=== PATIENT | female | born 1940 | race Caucasian/White ===

== ENCOUNTER → 2018-02-25 13:05 | Outpatient (CLI) | payer MEDICARE, OTHER, SELFPAY ==
[2018-02-25 13:49] LABS: Add Manual Diff / Slide Review NO; Basophils Percent Auto 0.9 % (0-2); Eosinophils Percent Auto 0.7 % (2-4); Hematocrit 39.3 % (36-46); Lymphocytes Percent Auto 32.7 % (25-40); Mean Corpuscular HGB Conc 33.1 % (30-36); Mean Corpuscular Hemoglobin 29.5 PG (26-34); Mean Corpuscular Volume 89.2 fL (80-100); Neutrophils Absolute Auto 3900 /uL (3000-5900); Neutrophils Percent Auto 55.7 % (50-75); Platelet Count 291 X10^3/uL (150-400); Red Cell Distribution Width 13.3 % (11.6-14.8); White Blood Cell Count 7.1 X10^3/uL (4.5-11.0)
[2018-02-25 14:28] LABS: BUN Creatinine Ratio 21.7 (6-22); Blood Urea Nitrogen 13 mg/dL (7-17); Carbon Dioxide 30 mmol/L (22-32); Chloride 97 mmol/L (98-107); Estimated Glomerular Filt Rate > 60.0 mL/min (>60); Glucose 81 mg/dL (80-110); HEMOLYSIS < 15 (0-50); Potassium 4.8 mmol/L (3.4-5.1); Sodium 138 mmol/L (137-145)
== END ==
PROVIDERS: PCP Family Medicine; Visit Provider Orthopaedic Surgery
DX: Z01.818 Encounter for other preprocedural examination (principal)
CPT/HCPCS: 36415; 80048; 85025; 93005

== ENCOUNTER 2018-03-28 06:36 | Inpatient (IN) | payer MEDICARE, OTHER, SELFPAY ==
[2018-03-15 12:57] VITALS: BMI 22.1
[2018-03-28] VITALS (13 sets, daily range): BP systolic 99–134; BP diastolic 54–94; PULSE 71–85; RESP 12–16; TEMP 36.2–37.4; O2SAT 95–99; BMI 22.1; BMI 21.7
--- NOTE | 2018-03-28 | DI.RAD.S_ITS ---
PROCEDURE: XR SHOULDER RT 1V INDICATIONS: Post op reverse total shoulder TECHNIQUE: Single view of the shoulder were acquired. COMPARISON: None. FINDINGS: Bones: Patient is status post left shoulder arthroplasty. Soft tissues: Soft tissue drain is present. IMPRESSION: Postoperative changes status post left shoulder arthroplasty. Dictated by: Donna Gómez M.D. on 03/28/2018 at 10:36 Approved by: Donna Gómez M.D. on 03/28/2018 at 10:36
[2018-03-28] MEDS: LACTATED RINGERS 1,000 ML 42 ML IV ×2 (07:30→09:45)
--- NOTE | 2018-03-28 07:43 | PM.PREOP ---
Pre-operative Note Interval Note Pre-op Check: History & Physical Reviewed by Physician and Changes
[2018-03-28] MEDS: fentaNYL 100 MCG/2 ML INJ 50 MCG IV (07:55)
[2018-03-28] MEDS: MIDAZOLAM 2 MG/2 ML VIAL 1 MG IV (07:55)
--- NOTE | 2018-03-28 08:13 | SUR.PREOP ---
Block start time [0756] . Monitoring initiated and maintained throughout procedure. Oxygen and medications given per anesthesiologist instructions. Patient remained stable throughout procedure, no adverse reactions noted. Block end time 0804 [].
[2018-03-28] MEDS: CEFAZOLIN 1 GM VIAL IV (08:15)
--- NOTE | 2018-03-28 08:47 | SUR.OPER ---
Beach chair with Sundeepn/Qiana shoulder positioner. Lower body on padded OR bed. Head in foam padded head cradle, secured with straps. Non-operative arm secured <90 degrees abduction. Pillow under knees. Safety belt at thigh. Cloth tape over blanket over lower legs. B Gel pad under heels.
[2018-03-28] MEDS: THROMBIN (BOVINE) 5,000 UNIT VIAL 5000 UNIT TOP (09:06)
[2018-03-28] MEDS: BUPIVACAINE 0.5% W/ EPI (PF) 30 ML VIAL INJ (09:07)
--- NOTE | 2018-03-28 10:23 | P.OP_ITS ---
Operative Date/Time/Diagnoses Date of procedure: 03/28/18 Time of procedure: 09:45 Pre-op diagnosis: Right shoulder rotator cuff tear arthropathy Post-op diagnosis: same Procedure & Clinicians Procedure: Right reverse total shoulder replacement Same procedure as scheduled: Yes Indications: The patient is had chronic right shoulder pain unresponsive to nonoperative therapies. Radiographic studies have revealed changes consistent with a massive rotator cuff tear and arthritis. They have elected to proceed with reverse total shoulder replacement after discussion of the risks benefits and alternatives. Risks discussed included but were not limited to: Failure to improve, instability, infection, nerve damage, deep venous thrombosis, pulmonary embolism, stroke, coma, myocardial infarction and . Surgeon: Gabriel Duarte Carpenter Wooden Tank Erecting: Nolan Vila Click Yes if Unassisted: No Anesthesia Type: General, Peripheral nerve block and Local Operative Notes Findings: Severe rotator cuff tear arthropathy with no remaining rotator cuff tissue Closure Type: primary Specimen(s): none sent Implants & Drains: Implants used in this procedure were manufactured by the [employer] and included a RSP glenoid base plate with a 30 mm screw, and 3 locking screws measuring 26 mm, 30 mm and 14 mm in length, a 32 mm neutral RSP glenoid head with retaining screw, a 10 mm standard reverse total shoulder stem and a 32 mm standard humeral socket insert. Applied: implant(s) Estimated Blood Loss (mL): 100 Blood products transfused: none Tourniquet time (min): 0 Procedure in detail: The patient was seen in the preoperative area where they identified the right shoulder as the operative site and this was marked with my initials. They received preoperative antibiotics and underwent the induction of an interscalene block. They were taken to the operating room and placed on the operating room table in a supine position with the underwent the induction of a general anesthetic. There were then repositioned in the ?beach chair? position using a dedicated positioner. All pressure points were well padded. The knees were slightly bent to prevent tension on the sciatic nerves. The right arm was prepared from the fingertips to the base of the neck with ChloraPrep in the usual fashion and draped through sterile drapes. An approximately 15 cm incision was created starting at the clavicle just above the coracoid and going to the deltoid insertion. The deltopectoral interval was used to access the shoulder taking the vein to the medial side. The vein was protected throughout the case. The upper 1 cm of the pectoralis major was released. The biceps tendon had ruptured. The subscapularis was torn and irreparable. The shoulder was dislocated and a proximal humeral osteotomy performed using an extramedullary guide. A proximal humeral protector was then placed. Retractors were placed access the glenoid. With care being taken to protect the axillary nerve, the soft tissues were removed circumferentially around the glenoid. The guide was used to drill the guide hole in the center of the inferior glenoid. The tap was placed and used as a guide for the reamer. The tap was then removed and the glenoid base plate inserted. The peripheral locking screws were then placed through the appropriate guide. The anterior screw was too short to place. A trial glenoid head was applied. We then turned our attention to the humerus. The proximal humeral protector was removed. Cylindrical reamers were used to size the canal. Broaching was then performed beginning with a small broach and working up until a line to line fit with the reamer was obtained. The guide for the proximal metaphyseal reamer was then applied and the metaphysis was reamed appropriately. The trial metaphyseal portion of the body was then applied to the broach. Trial reductions were performed and the size of the glenoid head and the cup were optimized. Stability was checked in maximal internal and external rotation and range of motion was checked to allow access to the top of the head, internal rotation to an excess of 50? in the ?scarecrow position? and the ability to reach the groin. The appropriate final prosthetic components were then opened. The glenoid head was impacted into position and checked for rotational and axial stability before placing the set screw. The humeral prosthetic was then impacted into position. The humeral cup was placed. The joint was relocated and irrigated. A deep drain was placed. The deltopectoral interval was reapproximated with 0 Vicryl. Subcutaneous layer was closed with interrupted 3- 0 Vicryl and skin with a running 3 0 V lock suture. Subcutaneous tissues were then infiltrated with 0.5% Marcaine for postoperative pain control. An Aquacel Ag dressing was applied and the patient's arm was placed in a sling. The patient was then transferred to the recovery room in good condition having tolerated the procedure well. Complications: none Condition: stable Disposition: PACU Plan for aftercare: The patient will be maintained in their sling for 6 weeks. They will be allowed to do pendulum exercises. They will be allowed to use a computer and eat with their hand in front of the body. They will be allowed to shower with the dressing in place. DVT prophylaxis will be with aspirin and sequential compression devices.
--- NOTE | 2018-03-28 10:34 | SUR.PHASEI ---
BEBETO MORALEZ IN TO LOOK AT PTS SHOULDER/UPPER FOREARM, PT HAS LARGE, HARD BUMP ON ANTERIOR SHOULDER/UPPER FOREARM, PER NAOMY TATE, THIS IS PTS NORMAL ANATOMY AND THIS WAS PRESENT BEFORE SURGERY.
[2018-03-28] MEDS: LACTATED RINGERS 1,000 ML 100 ML IV ×2 (11:51→21:52)
--- NOTE | 2018-03-28 12:25 | PT.IPTN ---
Current Diagnoses Other specific arthropathies, not elsewhere classified, right shoulder (03/28/18) Primary osteoarthritis, right shoulder (03/28/18) Complete rotator cuff tear or rupture of right shoulder, not specified as traumatic (03/28/18) Surgery Performed Operation Date: 03/28/18 07:45 Actual Procedures p Total Shoulder Arthroplasty - Reverse(Right) - Gabriel Duarte MD Physical Therapy Treatment Note Subjective Physical Therapy Visit Type Type Administrative Note Notes Checked on patient at 1120 and 1200, RN reporting pt is not yet ready to participate in therapy. Will check back later today or tomorrow.
--- NOTE | 2018-03-28 14:49 | PC.NURSE ---
arrival pt arrived from PACU in bed. denied pain. R arm in sling. Able to squeeze with minimal strength on arrival. some numbness and tingling in R hand and pt feels like hand is on her sternum not below in the sling. Denies pain. Aware to contact staff when/if pain intensifies to start PO pain meds. Tolerated full liquid diet without issue. Advanced to regular diet. present at bedside. up with PT to bathroom, urinated without issue. ice on surgical site. hourly rounding provided,c all light within reach.
--- NOTE | 2018-03-28 15:30 | PT.IIE ---
Current Diagnoses Other specific arthropathies, not elsewhere classified, right shoulder (03/28/18) Primary osteoarthritis, right shoulder (03/28/18) Complete rotator cuff tear or rupture of right shoulder, not specified as traumatic (03/28/18) Surgery Performed Operation Date: 03/28/18 07:45 Actual Procedures p Total Shoulder Arthroplasty - Reverse(Right) - Gabriel Duarte MD Surgical History (Last Updated 03/15/18 @ 13:36 by Debbie Tierney RN) History of back surgery (Acute) History of partial hysterectomy (Acute) History of repair of left rotator cuff (Acute) History of repair of right rotator cuff (Acute) History of right breast biopsy (Acute) Hx of arthroscopy of right knee (Acute) Hx of bilateral cataract extraction (Acute) Hx of tonsillectomy (Acute) Medical History (Last Updated 03/15/18 @ 13:36 by Debbie Tierney RN) Arthritis (Acute) Back pain (Acute) Diverticulosis (Acute) GERD (gastroesophageal reflux disease) (Acute) [place] (hard of hearing) (Acute) Migraines (Acute) Numbness (Acute) Osteoporosis (Acute) Restless leg syndrome (Acute) Rosacea (Acute) Scoliosis (Acute) Physical Therapy Inpatient Evaluation/Re-Eval Physical Therapy Current Condition Current Condition Evaluation Date 03/28/18 Treatment Diagnosis R reverse TSA Onset Date 03/28/18 Precautions Shoulder Precautions Sling PROM Internal Rotation to Body No External Rotation No Abduction Forward Flexion to 90 degrees Weight Bearing Status Weight Bearing Status Non-Weight Bearing Subjective Physical Therapy Visit Type Type Initial Evaluation Visit Start Time 13:00 Visit Stop Time 13:40 Total Visit Minutes 40 Physical Therapy Visit Comments Patient Comments Pt reports absolutely no pain but also has no feeling in her RUE yet. Short Term Goals go home Therapy Pain Assessment Pain When Pain Assessed At Rest Pain Present Pain Present Denied Pain PT-Bed Mobility Assessment Supine to Sit Supine to Sit Standby Assistance 1 Person Assistance Head of Bed Elevated Bedrails Sit to Supine Sit to Supine Standby Assistance 1 Person Assistance Head of Bed Elevated Bedrails Scooting Scooting to Edge of Bed Standby Assistance PT-Transfer Assessment Sit to and From Stand Sit to and from Stand Contact Guard Assistance 1 Person Assistance Use of Upper Extremities Equipment Transfer Assistive Device Gait Belt Transfers Transfer Destination Bed Toilet Transfer Technique Stand Step Pivot Transfer Ability Level of Assist Contact Guard Assistance 1 Person Assistance Use of Upper Extremities Comments Mobility Comments Pt able to walk into the bathroom and slowly lower herself onto the toilet without use of the grab bar. Gait Assessment Gait Gait Assistance Required: Contact Guard Assist Distance (Feet) (feet) 212 Able to Maintain Weight Bearing Status Yes During Gait Assistive Devices Assistive Device Gait Belt Comments Gait Comments Pt able to walk over 200ft her first time up after surgery, however, pt definitely needed CGA with several small LOBs. Pt does admit to having an extensive fall history. Stair Climbing Assessment Comments Stair Climbing Comments not tested PT-Balance Assessment Sitting Balance and Reactions Static Sitting Balance Ability Normal Dynamic Sitting Balance Ability Normal Standing Balance and Reactions Static Standing Balance Ability Good Dynamic Standing Balance Ability Fair Device Used none Orientation Orientation/Cognition Level of Alertness Alert Orientation Name Age Birthday Month Date Year Day of Week Place Situation Language Function Ability No Deficits Noted Safety Awareness Understands Safety Issues Memory Description No Deficits Noted Gross Range of Motion Upper Extremity ROM Assessment Right Impaired Impairments limited by use of sling/ precautions s/p R TSA Lower Extremity ROM Assessment Within Functional Limits Strength Upper Extremity Strength Assessment Right Impaired Lower Extremity Strength Assessment Within Functional Limits Comments Strength Comments RUE not tested Sensation Assessment Comments Sensation Comments Sensation is grossly WNL except for RUE which is still completely numb s/p R TSA. Physical Therapy Treatment Education Education Provided Precautions Weight Bearing Status Safety PT Summary Assessment and Plan Potential Rehabilitation Potential Good Status of Condition at Evaluation Stable Summary Impairments Balance Gait Progress Towards Goals Progressing Toward Goals Assessment Summary POD#0 R reverse TSA, NWB RUE and use of sling. Pt doing well with tolerating OOB activity, very motivated. Pt will be safe to discharge home once medically ready, however , pt does demonstrate impaired balance and will benefit from further acute PT prior to d/c to trial various ADs and make final recommendation. Goals Bed Mobility Goal Independent Transfer Goal Independent Gait Goal Standby Assistance Cane Gait Distance 300 Days to Meet Goals 2 Frequency of Treatment Frequency Of Treatment Twice a Day Treatment Plan Physical Therapy Treatment Plan Gait Training Balance Retraining Recommendations To Nursing Amount of Assist Needed 1 Person Assist Discharge Recommendations PT Discharge Recommendations Home with Assistance Outpatient PT
[2018-03-28] MEDS: GABAPENTIN 100 MG CAPSULE 200 MG PO (16:20)
[2018-03-28] MEDS: CEFAZOLIN 1 GM/50 ML FROZ.PIGGY IV ×2 (16:20→23:33)
[2018-03-28] MEDS: ASPIRIN EC 81 MG TABLET PO (20:16)
[2018-03-28] MEDS: PRAMIPEXOLE 0.25 MG TABLET PO (20:16)
[2018-03-28] MEDS: DOCUSATE 100 MG CAPSULE PO (20:17)
[2018-03-28] MEDS: OXYCODONE IR 5 MG TABLET PO ×2 (20:17→23:33)
[2018-03-28] MEDS: ACETAMINOPHEN 325 MG TABLET 650 MG PO (20:17)
[2018-03-28] MEDS: HYDROMORPHONE 2 MG INJ 0.5 MG IV (21:51)
--- NOTE | 2018-03-28 22:29 | PC.NURSE ---
Pt c/o pain 04/29, PRN pain meds being given per NOV. Aquacel CDI, sling remains in place. Pt able to wiggle fingers, good strong radial pulse, skin warm, denies numbness and tingling. Denies nausea, +BT's. Hx restless legs, pt has been ambulating in halls with staff SBA. IV fluids infusing. Call light in reach. Pt calling appropriately and making needs known to staff.
[2018-03-29] MEDS: HYDROMORPHONE 2 MG INJ 0.5 MG IV ×2 (00:35→03:29)
--- NOTE | 2018-03-29 05:31 | PC.NURSE ---
pet care attendant: Pt is a/ox3, slept in the bedside chair with head up most of the night, pt reports that she felt more comfortable in the chair. Aquacel dressing to right shoulder CDI, H/V compressed and patent with sling in place. CMS +, radial pulse palpable. Denies nausea overnight. Pt having c/o that increases to 5-6/10 with ambulation, medicated with IV Dilaudid and Oxycodone. Pt concerned that 1 tab Oxycodone which is her home routine will not be adequate for pain control the first few days to week post op. Call light within reach.
[2018-03-29 05:44] VITALS: BP 105/59; PULSE 68; RESP 16; TEMP 36.1; O2SAT 98
[2018-03-29] MEDS: ACETAMINOPHEN 325 MG TABLET 650 MG PO ×2 (06:03→07:50)
[2018-03-29] MEDS: OXYCODONE IR 5 MG TABLET PO ×2 (06:04→07:50)
--- NOTE | 2018-03-29 07:42 | PM.DS.1 ---
History of Present Illness Date Patient Seen: 03/29/18 Time Patient Seen: 07:24 Chief complaint: [id number] Narrative: Patient seen at bedside with Dr. Duarte status post right reverse shoulder arthroplasty postop day 1. Patient is doing well however her pain was uncontrolled over the night. We will work on pain management today and have her work with physical therapy. After she is cleared by physical therapy she will be able to go home. She denies any numbness tingling of the right arm. She denies fevers chills shortness of breath and chest pain. She will be given a script for oxycodone as well as aspirin to take twice a day to prevent DVT. Discharge Providers Date of admission: 03/28/18 06:36 Primary care physician: Maikol Bazzi DO Consults: 03/28/18 11:17 Consult to Discharge Planning Routine Comment: Consult to Physical Therapy Evaluate & Treat Comment: Teach pendulums, otherwise to remain in sling Physician Instructions: Evaluate and Treat Discharge provider: Andreina Atkins PA-C Summary Discharge Diagnosis: Right shoulder osteoarthritis Hospital Course: Patient is admitted status post right reverse shoulder arthroplasty on 03/28/2018. Patient tolerated the procedure well no major complications. Patient was seen by Physical therapy and cleared for discharge home. The patient will be discharged on 03/29/2018. Status at Discharge Cognitive/behavioral status at discharge: Alert and oriented x3 Functional status at discharge: independent ambulation Overall status at discharge: patient is progressing back to baseline Time Spent with Patient Less than 30 minutes Exam Vital Signs (past 8 hours): - 03/29/18 05:44 Temperature 96.9 F L Pulse Rate 68 Respiratory Rate 16 Blood Pressure 105/59 L Pulse Oximetry 98 Oxygen Delivery Method Room Air Narrative Exam Narrative: Patient is well built and nourished in no acute distress. Patient alert oriented x3. On examination of the right upper extremity patient is able to move fingers wrist and elbow. Nerves C5, 6 & 7 are intact. Dressing is clean dry and intact. Drain has minimal discharge. Discharge Plan Discharge Plan Patient Disposition: Home, Self-Care Discharge Med Rec/Prescriptions Prescriptions: New aspirin 81 mg Tablet,Delayed Release (Dr/Ec) 81 mg PO BID Qty: 0 RF: 0 docusate sodium 100 mg Capsule 100 mg PO BID Qty: 0 RF: 0 oxycodone 5 mg Tablet 5 mg PO Q4-6H PRN (Reason: Pain, Moderate (4-6)) Qty: 60 RF: 0 Continue pramipexole [Mirapex] 0.5 mg Tablet 0.25 mg PO BID-TID RF: 0 gabapentin 100 mg Capsule 2 - 3 tab PO QPM RF: 0 alendronate [Fosamax] 70 mg Tablet 70 mg PO QWEEK RF: 0 Discontinued oxycodone 5 mg Capsule 5 mg PO QID PRN (Reason: pain, restless legs) RF: 0 Follow up/Referrals: [facility] [Provider Group] - 04/11/18 3:30 pm (With Crystal Leonardo at the [place] office) Provider Discharge Instructions Diet: Diet as Tolerated Activity: NWB left upper extremity, may do pendulum exercises and move wrist/elbow. Wear sling as reminder to not move shoulder. Wound Care Report to your healthcare provider any signs of infection, such as:: chills, fever, night sweats, increased pain and unusual drainage Dressing: Keep dressing clean, dry, and intact until follow up appointment. Visit Report/Discharge Packet Instructions: DI for Shoulder Replacement Discharge Data Primary Care Provider: Maikol Bazzi Attending Provider: Gabriel Duarte Admit Date/Time: 03/28/18 06:36 Quality VTE Deep Vein Thrombosis/Pulmonary Embolism Present on Admission: No
[2018-03-29 07:45] VITALS: BP 98/42; PULSE 71; RESP 14; TEMP 36.8; O2SAT 99
--- NOTE | 2018-03-29 07:47 | P.DS_ITS ---
History of Present Illness Date Patient Seen: 03/29/18 Time Patient Seen: 07:24 Chief complaint: [id number] Narrative: Patient seen at bedside with Dr. Duarte status post right reverse shoulder arthroplasty postop day 1. Patient is doing well however her pain was uncontrolled over the night. We will work on pain management today and have her work with physical therapy. After she is cleared by physical therapy she will be able to go home. She denies any numbness tingling of the right arm. She denies fevers chills shortness of breath and chest pain. She will be given a script for oxycodone as well as aspirin to take twice a day to prevent DVT. Discharge Providers Date of admission: 03/28/18 06:36 Primary care physician: Maikol Bazzi DO Consults: 03/28/18 11:17 Consult to Discharge Planning Routine Comment: Consult to Physical Therapy Evaluate & Treat Comment: Teach pendulums, otherwise to remain in sling Physician Instructions: Evaluate and Treat Discharge provider: Andreina Atkins PA-C Summary Discharge Diagnosis: Right shoulder osteoarthritis Hospital Course: Patient is admitted status post right reverse shoulder arthroplasty on 03/28/2018. Patient tolerated the procedure well no major complications. Patient was seen by Physical therapy and cleared for discharge home. The patient will be discharged on 03/29/2018. Status at Discharge Cognitive/behavioral status at discharge: Alert and oriented x3 Functional status at discharge: independent ambulation Overall status at discharge: patient is progressing back to baseline Time Spent with Patient Less than 30 minutes Exam Vital Signs (past 8 hours): - 03/29/18 05:44 Temperature 96.9 F L Pulse Rate 68 Respiratory Rate 16 Blood Pressure 105/59 L Pulse Oximetry 98 Oxygen Delivery Method Room Air Narrative Exam Narrative: Patient is well built and nourished in no acute distress. Patient alert oriented x3. On examination of the right upper extremity patient is able to move fingers wrist and elbow. Nerves C5, 6 & 7 are intact. Dressing is clean dry and intact. Drain has minimal discharge. Discharge Plan Discharge Plan Patient Disposition: Home, Self-Care Discharge Med Rec/Prescriptions Prescriptions: New aspirin 81 mg Tablet,Delayed Release (Dr/Ec) 81 mg PO BID Qty: 0 RF: 0 docusate sodium 100 mg Capsule 100 mg PO BID Qty: 0 RF: 0 oxycodone 5 mg Tablet 5 mg PO Q4-6H PRN (Reason: Pain, Moderate (4-6)) Qty: 60 RF: 0 Continue pramipexole [Mirapex] 0.5 mg Tablet 0.25 mg PO BID-TID RF: 0 gabapentin 100 mg Capsule 2 - 3 tab PO QPM RF: 0 alendronate [Fosamax] 70 mg Tablet 70 mg PO QWEEK RF: 0 Discontinued oxycodone 5 mg Capsule 5 mg PO QID PRN (Reason: pain, restless legs) RF: 0 Follow up/Referrals: [facility] [Provider Group] - 04/11/18 3:30 pm (With Crystal Richey at the [place] office) Provider Discharge Instructions Diet: Diet as Tolerated Activity: NWB left upper extremity, may do pendulum exercises and move wrist/ elbow. Wear sling as reminder to not move shoulder. Wound Care Report to your healthcare provider any signs of infection, such as:: chills, fever, night sweats, increased pain and unusual drainage Dressing: Keep dressing clean, dry, and intact until follow up appointment. Visit Report/Discharge Packet Instructions: DI for Shoulder Replacement Discharge Data Primary Care Provider: Maikol Bazzi Attending Provider: Gabriel Duarte Admit Date/Time: 03/28/18 06:36 Quality VTE Deep Vein Thrombosis/Pulmonary Embolism Present on Admission: No
[2018-03-29] MEDS: ASPIRIN EC 81 MG TABLET PO (08:21)
[2018-03-29] MEDS: DOCUSATE 100 MG CAPSULE PO (08:21)
[2018-03-29] MEDS: PRAMIPEXOLE 0.25 MG TABLET PO (08:21)
--- NOTE | 2018-03-29 09:02 | CM.DANOTE ---
Discharge Planning/Care Management CM Discharge Assessment Start: 03/29/18 08:59 Freq: Status: Active Protocol: Document 03/29/18 08:59 RL (Rec: 03/29/18 09:02 RL [id number]) Discharge Planning Assessment History Provided By Patient Has Patient been admitted in last 30 No days? Is this patient on Medicare? Yes Is the admit diagnosis the same? Yes Prior Living Arrangements House Household Members spouse Type of transporation used prior to Drives own vehicle admit Independent with ADL's Yes Is patient alert and oriented? Yes Caregiver for Another No DME Already Rented / Owned Cane Discharge Plan Home Transportation Arrangement spouse to picker tender helper today: PT and OT plan to work with spouse and patient prior to d/ c home today. Patient to have outpatient PT per MD request. Review Status Complete DCP Assessment: 03/29/18 Case reviewed, EMR reviewed and met with patient who is alert and oriented, up in bedside chair eating breakfast with left hand (nondominant hand). Pt is a 77 yo admitted as Inpatient on 03/28 for right reverse total shoulder arthroplasty, under the care of Dr. Duarte. PCP: Maikol Bazzi [place] Primary payor is: Medicare/ [employer] secondary. Other health care agencies used: None Met with patient. Introduced self as DCP, explained role and goals of DCP and as pt advocate. Patient verbalized understanding. DCP wrote name and extension number on patient whiteboard. Patient states she was independent at baseline for all ADLs prior to this hospitalization. States spouse is POA and he will plan to pick her up today and take her home. She sees no barriers to discharge and is looking forward to returning home. Plan: Home with spouse after working with PT and OT today. (Order placed for OT per [facility] to OT, entered by undersigned). Rosa Gray RN
--- NOTE | 2018-03-29 11:08 | PT.IPTN ---
Current Diagnoses Other specific arthropathies, not elsewhere classified, right shoulder (03/28/18) Primary osteoarthritis, right shoulder (03/28/18) Complete rotator cuff tear or rupture of right shoulder, not specified as traumatic (03/28/18) Surgery Performed Operation Date: 03/28/18 07:45 Actual Procedures p Total Shoulder Arthroplasty - Reverse(Right) - Gabriel Duarte MD Physical Therapy Treatment Note M2 PT-IP Current Condition Start: 03/28/18 11:20 Freq: NEEDED Status: Active Protocol: Document 03/28/18 13:40 RS (Rec: 03/28/18 15:29 RS [id number]) Physical Therapy Current Condition Current Condition Evaluation Date 03/28/18 Treatment Diagnosis R reverse TSA Onset Date 03/28/18 Precautions Shoulder Precautions Sling PROM Internal Rotation to Body No External Rotation No Abduction Forward Flexion to 90 degrees Weight Bearing Status Weight Bearing Status Non-Weight Bearing M3 PT-IP Subjective Start: 03/28/18 11:20 Freq: NEEDED Status: Active Protocol: Document 03/29/18 09:27 CLB (Rec: 03/29/18 11:08 CLB [email or web address]) Subjective Physical Therapy Visit Type Type Treatment Note Visit Start Time 09:27 Visit Stop Time 09:57 Total Visit Minutes 30 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 Short Term Goals go home Therapy Pain Assessment Pain When Pain Assessed At Rest Pain Present Pain Present Denied Pain M4 PT-IP Mobility and Gait Start: 03/28/18 11:20 Freq: NEEDED Status: Active Protocol: Document 03/29/18 09:27 CLB (Rec: 03/29/18 11:08 CLB [id number]) PT-Transfer Assessment Sit to and From Stand Sit to and from Stand Contact Guard Assistance 1 Person Assistance Use of Upper Extremities Equipment Transfer Assistive Device Gait Belt Transfers Transfer Destination Chair Transfer Technique after ambulation Transfer Ability Level of Assist Contact Guard Assistance 1 Person Assistance Use of Upper Extremities Gait Assessment Gait Gait Assistance Required: Contact Guard Assist Distance (Feet) (feet) 200 Able to Maintain Weight Bearing Status Yes During Gait Assistive Devices Assistive Device Gait Belt Small Based Quad Cane Comments Gait Comments Pt trialled quad cane which she has used at home. Pt able to coordinate step sequencing with quad cane and only had one small LOB during a right turn in [place] and was able to self correct. Pt agreeable to use quad cane at home. Pt has her mother quad cane for home use. Stair Climbing Assessment Comments Stair Climbing Comments pt has no step to enter home and will not be using steps in home. PT-Balance Assessment Sitting Balance and Reactions Static Sitting Balance Ability Normal Dynamic Sitting Balance Ability Normal Standing Balance and Reactions Static Standing Balance Ability Good Dynamic Standing Balance Ability Fair Device Used none M5 PT-IP Objective Assessments Start: 03/28/18 11:20 Freq: NEEDED Status: Active Protocol: Document 03/28/18 13:40 RS (Rec: 03/28/18 15:29 RS [id number]) Orientation Orientation/Cognition Level of Alertness Alert Orientation Name Age Birthday Month Date Year Day of Week Place Situation Language Function Ability No Deficits Noted Safety Awareness Understands Safety Issues Memory Description No Deficits Noted Gross Range of Motion Upper Extremity ROM Assessment Right Impaired Impairments limited by use of sling/ precautions s/p R TSA Lower Extremity ROM Assessment Within Functional Limits Strength Upper Extremity Strength Assessment Right Impaired Lower Extremity Strength Assessment Within Functional Limits Comments Strength Comments RUE not tested Sensation Assessment Comments Sensation Comments Sensation is grossly WNL except for RUE which is still completely numb s/p R TSA. M6 PT-IP Treatment Start: 03/28/18 11:20 Freq: NEEDED Status: Active Protocol: Document 03/29/18 09:27 CLB (Rec: 03/29/18 11:08 CLB [id number]) Physical Therapy Treatment Exercises Exercises Shoulder Pendulums Wrist ROM Hand ROM Education Education Provided Precautions Weight Bearing Status Safety M7 PT-IP Assessment and Plan Start: 03/28/18 11:20 Freq: NEEDED Status: Active Protocol: Document 03/29/18 09:27 CLB (Rec: 03/29/18 11:08 CLB [id number]) PT Summary Assessment and Plan Potential Rehabilitation Potential Good Status of Condition at Evaluation Stable Summary Impairments Balance Gait Progress Towards Goals Progressing Toward Goals Assessment Summary Pt steadier with ambulation with quad cane and agreed to use it at home. Pt doing well with all other activities and seems safe to d/c home with assist of when medically stable. Goals Bed Mobility Goal Independent Transfer Goal Independent Gait Goal Standby Assistance Cane Gait Distance 300 Days to Meet Goals 2 Frequency of Treatment Frequency Of Treatment Twice a Day Treatment Plan Physical Therapy Treatment Plan Gait Training Balance Retraining Recommendations To Nursing Amount of Assist Needed 1 Person Assist Discharge Recommendations PT Discharge Recommendations Home with Assistance Outpatient PT
--- NOTE | 2018-03-29 11:41 | OT.IP.EVAL ---
Current Diagnoses Other specific arthropathies, not elsewhere classified, right shoulder (03/28/18) Primary osteoarthritis, right shoulder (03/28/18) Complete rotator cuff tear or rupture of right shoulder, not specified as traumatic (03/28/18) Surgery Performed Operation Date: 03/28/18 07:45 Actual Procedures p Total Shoulder Arthroplasty - Reverse(Right) - Gabriel Duarte MD Past Medical History (Last Updated 03/15/18 @ 13:36 by Debbie Tierney RN) Arthritis (Acute) Back pain (Acute) Diverticulosis (Acute) GERD (gastroesophageal reflux disease) (Acute) [place] (hard of hearing) (Acute) Migraines (Acute) Numbness (Acute) Osteoporosis (Acute) Restless leg syndrome (Acute) Rosacea (Acute) Scoliosis (Acute) Surgical History (Last Updated 03/15/18 @ 13:36 by Debbie Tierney RN) History of back surgery (Acute) History of partial hysterectomy (Acute) History of repair of left rotator cuff (Acute) History of repair of right rotator cuff (Acute) History of right breast biopsy (Acute) Hx of arthroscopy of right knee (Acute) Hx of bilateral cataract extraction (Acute) Hx of tonsillectomy (Acute) Occupational Therapy Inpatient Evaluation/Re-Eval M1 PT/OT-IP Prior Functional Status Start: 03/29/18 12:51 Freq: NEEDED Status: Active Protocol: Document 03/29/18 17:09 [facility] (Rec: 03/29/18 17:27 [facility] [id number]) Medical Review Prior Functional Status Medical History Reviewed Yes Diet/Fluid Consistency Regular Communication WNL Mobility and Gait Pt reports some falls after episode of labrynthitis. 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 Social History Household Members spouse Living Arrangements House Number of Floors (Floors) Two Floors Number of Stairs To Enter/Railing? no stairs to enter main level; all necessities on main level Home Environment Standard Height Toilet Walk in Shower Home Equipment Quad Cane Hand Held Shower Employment Status Retired Additional Social History Comment supportive, capable can provide 24 hr assist at d/ c M2 OT-IP Current Condition Start: 03/29/18 12:51 Freq: Status: Active Protocol: Document 03/29/18 17:09 PJ (Rec: 03/29/18 17:27 [facility] [id number]) Occupational Therapy Current Condition Current Condition Evaluation Date 03/29/18 Treatment Diagnosis decreased self care after R reverse total shoulder Diagnosis Onset Date 03/28/18 Post Operative Precautions Shoulder Precautions Sling PROM Internal Rotation to Body No External Rotation No Abduction Forward Flexion to 90 degrees Pendulums Weight Bearing Status Weight Bearing Status Non-Weight Bearing M3 OT- IP Subjective and Pain Start: 03/29/18 12:51 Freq: Status: Active Protocol: Document 03/29/18 17:09 PJ (Rec: 03/29/18 17:27 [facility] [id number]) OT- Subjective Occupational Therapy Visit Type Type Initial Evaluation Visit Start Time 10:50 Visit Stop Time 11:41 Total Visit Minutes 51 Notes here for education this session. Occupational Therapy Visit Comments Patient Comments Are you here to show me how to get dressed? Patient/Caregiver Goals to get a good result from her surgery and be able to use her R (dominant) arm normally OT Pain Assessment Pain When Pain Assessed After Treatment Pain Present Pain Present Pain Reported Location Right Shoulder Intensity 5 Scale Used Numeric (1 - 10) Description Aching Acute Pain Behaviors Guarding Management Techniques Re-positioning Timing of Activity with Medications M4 OT- IP ADL's Start: 03/29/18 12:51 Freq: Status: Active Protocol: Document 03/29/18 17:09 PJ (Rec: 03/29/18 17:27 [facility] [id number]) OT RCG-[id number]-Lyyycpk General Evaluation Self-Feeding Ability Standby Assistance Areas Needing Assistance Cutting Food Opening Containers Comments OT Self-Feeding Comments Pt using non dominant L hand to feed self after set up this session. Per MD op notes, pt can use R hand to feed self with arm in front of her. OT ADL-Grooming General Evaluation Grooming Ability Independent OT ADL-Oral Care General Eval Oral Care Ability Independent OT ADL-Dressing General Eval Upper Body Dressing Ability Moderate Assistance Lower Body Dressing Ability Maximum Assistance Areas Needing Assistance Retrieving/Set-up of Clothing Managing Buttons Button-Up Shirt/Blouse Underpants/Brief Pants/Shorts Socks Shoes Comments OT Dressing Comments Pt/ educated re: sling donning and doffing and dressing within total shoulder precautions. able to assist pt appropriately with sling, upper/lower body dressing. OT ADL-Toileting General Evaluation Toileting Ability Minimal Assistance Areas Needing Assistance Manage Clothing Comments OT Toileting Comments Pt needs assist to get pants up/down on R side. to assist PRN. OT ADL-Bathing Bathing Type Bathing Type Shower Devices Bathing Equipment Shower Chair without Arms Comments OT Bathing Comments Provided education re: precautions for showering and need to wear sling for transfer in/out of shower for safety. Pt/ verbalize understanding. to assist PRN. to borrow shower seat for pt use. M5 OT- IP IADL's Start: 03/29/18 12:51 Freq: Status: Active Protocol: Document 03/29/18 17:09 PJ (Rec: 03/29/18 17:27 [facility] [id number]) OT-Instrumental Activities of Daily Living Deficits IADL Deficits Identified Deficits Home Safety Awareness Awareness of Need for Assistance at Home Good Awareness Ability to Problem Solve Emergency Able to Problem Solve Situations Medication Management Medication Management No Deficits Identified Money Management Money Management No Deficits Identified Meal Preparation Meal Preparation Caregiver Provides Assist Meal Preparation Comments to assist PRN. Payroll Administrator Payroll Administrator Caregiver Provides Assist Payroll Administrator Comments to assist PRN. Driving Driving Caregiver Provides Assist Driving Comments to assist PRN. M6 OT- IP Functional Cognition Start: 03/29/18 12:51 Freq: Status: Active Protocol: Document 03/29/18 17:09 PJ (Rec: 03/29/18 17:27 [facility] [id number]) Cognitive Factors Limiting Selfcare Function Cognitive Ability Level of Alertness Alert Patient Orientation Name Age Birthday Month Date Year Day of Week Place Situation Attention Span Ability Capable of Focused Attention Capable of Sustained Attention Ability to Follow Commands Able to Follow One Step Commands Memory Description No Deficits Noted Safety Awareness No Deficits Noted Problem Solving Ability Needs Assist to Identify Solutions Cognitive Comments Cognitive Assessment Comments Pt verbalizes/demonstrates understanding of all precautions and education OT- Vision and Hearing OT- Hearing Assessment OT- Hearing Assessment WFL OT- Vision Assessment Visual Acuity WFL Glasses All The Time Vision Assessment Comments pt denies any recent changes M7 OT- IP Mobility and Balance Start: 03/29/18 12:51 Freq: Status: Active Protocol: Document 03/29/18 17:09 PJ (Rec: 03/29/18 17:27 [facility] [id number]) OT- Bed Mobility Assessment Rolling Level of Assistance Standby Assistance Supine to Sit Supine to Sit Assist Standby Assistance Sit to Supine Sit to Supine Assist Standby Assistance Scooting Scooting to Edge of Bed Standby Assistance OT-Transfer Assessment Sit to and From Stand Sit to and from Stand Standby Assistance Transfers Transfer Ability Standby Assistance Technique Transfer Destination Car Chair Transfer Technique Stand Step Pivot Devices Transfer Assistive Devices Small Based Quad Cane Comments Mobility Comments Pt moves quickly; occasional reminders to slow down. to assist PRN. OT- Gait Assessment Gait Gait Assistance Required: Standby Assistance Assistive Devices Assistive Device Small Based Quad Cane Comments Gait Ability Comments see P.T. notes for further details OT- Balance Assessment Sitting Balance and Reactions Static Sitting Balance Ability Normal Dynamic Sitting Balance Ability Good M8 OT- IP Objective Assessments Start: 03/29/18 12:51 Freq: Status: Active Protocol: Document 03/29/18 17:09 PJ (Rec: 03/29/18 17:27 [facility] [id number]) OT Gross Range of Motion Upper Extremity Range of Motion Assessment Right Impaired ROM Impairments RUE in sling. Elbow, wrist, hand AROM WFL with arthritic changes noted in MP's/IP's especially in R index finger with 50% composite flexion. LUE WFL throughout. OT Strength Upper Extremity Strength Assessment Right Impaired Shoulder R NT Elbow R at least 3/5 Forearm R at least 3/5 Wrist R at least 3/5 Hand R at least 3/5 Comments Strength Comments LUE WFL throughout OT- Coordination Assessment Upper Extremity Finger to Nose Test Right UE Impaired Comments Coordination Comments RUE functional use limited by sling. Computer use and eating allowed by MD if R arm in front of pt. OT-Muscle Tone Assessment Muscle Tone WNL Yes OT Sensation Assessment Comments Summary Comments Pt denies deficits in either UE. Edema Edema Present Edema Comments Min edema in R hand. Pt educated re: fist pumping. M9 OT- IP Assessment and Plan Start: 03/29/18 12:51 Freq: Status: Active Protocol: Document 03/29/18 17:09 PJ (Rec: 03/29/18 17:27 [facility] [id number]) OT Summary Assessment and Plan Potential Rehabilitation Potential Excellent Analytic Complexity at Evaluation Low Summary OT Impairments Pain Range of Motion Strength Coordination Dressing Toileting Bathing Toilet Transfers Shower Transfers Assessment Summary Low complexity OT assessment and all OT education completed with pt and spouse today. Pt/spouse educated re: R shoulder precautions, pendulum exercises for RUE, AROM for R elbow, forearm, wrist and fingers, bed mobility, adapted techniques for all self care tasks as noted above. Pt plans to d/c home today with no further OT services needed. Frequency of Treatment Frequency Of Treatment Discharge Discharge Recommendations OT Discharge Recommendations Home with 12/04 Assist Home Equipment Needs shower seat and grab bar on L recommended
== END 2018-03-29 11:49 | disposition home or self-care (01) | DRG 483 ==
PROVIDERS: Admitting Provider Orthopaedic Surgery; PCP Family Medicine; Visit Provider Orthopaedic Surgery
PROC: 0RRJ00Z Replacement of Right Shoulder Joint with Reverse Ball and Socket Synthetic Substitute, Open Approach (ICD-10-PCS; CPT 23472; principal; 2018-03-28 07:45)
DX: M19.011 Primary osteoarthritis, right shoulder (principal); M75.121 Complete rotator cuff tear or rupture of right shoulder, not specified as traumatic; M12.811 Other specific arthropathies, not elsewhere classified, right shoulder; M81.0 Age-related osteoporosis without current pathological fracture
CPT/HCPCS: 64450; 73020; 97110; 97116; 97161; 97165; 97535; C1776; J0690; J1100; J1170; J2250; J2405; J2704; J3010

== ENCOUNTER → 2019-09-25 06:29 | Outpatient (CLI) | payer MEDICARE, OTHER, SELFPAY ==
[2018-03-28 12:34] VITALS: BMI 21.7
--- NOTE | 2019-09-25 | DI.NM.S_ITS ---
PROCEDURE: NM NOA PERF SPECT R&S PHARM Rest and pharmacological stress myocardial perfusion SPECT with gated imaging and ejection fraction RADIOPHARMACEUTICAL: 26.6 mCi Tc-99m tetrafosmin IV at rest and 26.9 mCi Tc-99m tetrafosmin IV at peak effect of pharmacological stress. [id number] was performed. INDICATIONS: Shortness of breath TECHNIQUE: Radiopharmaceutical was injected at peak stress test, and also at rest. SPECT images were obtained. SPECT myocardial perfusion images were displayed in short axis, horizontal long axis, and vertical long axis views. Gated images were reviewed using [employer] Audio software. COMPARISON: None. CARDIAC STRESS: A pharmacologic stress test was performed under the supervision of an attending staff, using an infusion of Lexiscan . Hemodynamic data: There is normal blood pressure and heart rate response to pharmacologic stress. Symptoms: The patient denied anginal chest pain. Aminophylline: Not given EKG: No diagnostic changes of ischemia; isolated PAC and PVCs. FINDINGS: Raw data: There is good myocardial uptake of radiotracer. No significant motion artifacts. Sige-rj-itxbf ratio is 0.26 (normal is less than 0.38 for tetrafosmin tracer). Left ventricle function: Gated images demonstrate normal left ventricular wall thickening. No segmental wall motion abnormalities. No transient ischemic dilation; TID is 1.00 (normal less than 1.3). Left ventricle resting end diastolic volume is 72 mL. Left ventricle stress ejection fraction is>75% ; normal range is above 45%. Myocardial perfusion: There is normal distribution of activity in the left ventricular myocardium. No fixed or reversible perfusion defects. IMPRESSION: Normal pharmacological perfusion study with no evidence of ischemia or scar. Low-risk study. Dictated by: Patel Sanford M.D. on 09/26/2019 at 19:36 Approved by: Patel Sanford M.D. on 09/26/2019 at 19:41
== END ==
PROVIDERS: PCP Family Medicine; Visit Provider Family Medicine
DX: R07.89 Other chest pain (principal); R06.02 Shortness of breath
CPT/HCPCS: 78452; 93016; 93017; 93018; A9502; J2785

== ENCOUNTER → 2020-08-05 13:47 | Outpatient (CLI) | payer MEDICARE, OTHER, SELFPAY ==
[2018-03-28 12:34] VITALS: BMI 21.7
--- NOTE | 2020-08-05 14:06 | DI.CT.S_ITS ---
P her ROCEDURE: CT UE LT WO CON INDICATIONS: Pain in left shoulder TECHNIQUE: Noncontrast 1-1.5 mm thick sections acquired from the acromioclavicular joint to the inferior scapula, with coronal and sagittal reformatting. COMPARISON: [facility] [place], [place], XR SHOULDER 2+ VIEWS LEFT, 07/23/2020, 14:06. FINDINGS: Image quality: Excellent. Bones: Severe left shoulder joint degeneration is present. There is chondrocalcinosis and postsurgical changes including multiple soft tissue anchors seen within the humeral head. Hardware appears grossly intact. There is resection of the acromion. Scattered degenerative subchondral sclerosis and spurring. Chronic fracture of the spine of the scapula with sclerosis and callus formation. There is no definite bridging ossification. Cervical spondylosis and facet arthropathy Soft tissues: High-riding appearance of the humeral head suggestive of chronic rotator cuff pathology. Diffuse atrophy of the rotator cuff muscles. Large left shoulder joint effusion. IMPRESSION: Severe left shoulder joint degeneration. Chondrocalcinosis Chronic fracture of the scapular spine. No definite bridging ossification is seen. High-riding appearance of the humeral head suggesting chronic rotator cuff pathology. Dictated by: Issac Enrique M.D. on 08/05/2020 at 16:09 Approved by: Issac Enrique M.D. on 08/05/2020 at 16:25
== END ==
PROVIDERS: PCP Family Medicine; Referring Provider Family Medicine; Visit Provider Orthopaedic Surgery
DX: M25.512 Pain in left shoulder (principal); M19.012 Primary osteoarthritis, left shoulder; M11.212 Other chondrocalcinosis, left shoulder; M84.412A Pathological fracture, left shoulder, initial encounter for fracture
CPT/HCPCS: 73200

== ENCOUNTER → 2020-09-04 13:00 | Outpatient (CLI) | payer MEDICARE, OTHER, SELFPAY ==
[2018-03-28 12:34] VITALS: BMI 21.7
--- NOTE | 2020-09-04 | DI.CT.S_ITS ---
PROCEDURE: CT LUMBAR SPINE WO CON INDICATIONS: Dorsalgia, unspecified TECHNIQUE: Noncontrast 3 mm thick sections acquired from the T12 level to the sacrum. Sagittal and coronal reformats were constructed. For radiation dose reduction, the following was used: automated exposure control. COMPARISON: [facility] [place], CR, XR SCOLIOSIS STUDY, 08/29/2020, 15:42. FINDINGS: Image quality: Portions of the spine are suboptimally evaluated secondary to metallic streak artifact from extensive posterior fusion. Bones: There is prominent rightward scoliotic curvature with apex at L1-L2. There is posterior fusion from T10 through L1. The left pedicular screw at T10 courses along the lateral most aspect of the canal. There is minimal appearance of lucency within the pedicular screws, right greater than left at T11 and T12. No visualized osseous fractures or dislocations. Multilevel moderate to severe disc space narrowing is present. Mild disc bulges present at L1-L2, L2-3, L3-4. L4-5 and L5-S1 are suboptimally evaluated secondary to artifact. There is no gross spinal stenosis. However, exam evaluation is limited particularly at L4-5 and L5-S1. Minimal to mild left foraminal narrowing L1-L2, moderate bilateral L2-3, moderate left and is moderate to severe right L3-4, likely at least moderate bilateral at L4-5, however significantly limited secondary to artifact. Foramina at L5-S1 are difficult to evaluate secondary to artifact. However, there is likely at least moderate degree of bilateral foraminal narrowing. Soft tissues: No retroperitoneal masses or hematomas. Visualized aorta is normal in caliber. IMPRESSION: 1. Limited exam secondary to significant metallic streak artifact. 2. Extensive posterior fusion as above. 3. Multilevel disc bulges. 4. No gross spinal stenosis. However, areas are suboptimally evaluated. 5. Multilevel foraminal narrowing appear to be most notable at L4-5 and L5-S1, however visualization is limited secondary to artifact. Dictated by: Marva Langford M.D. on 09/04/2020 at 16:20 Approved by: Marva Langford M.D. on 09/04/2020 at 16:27
== END ==
PROVIDERS: PCP Family Medicine; Referring Provider Family Medicine; Visit Provider Orthopaedic Surgery Orthopaedic Surgery of the Spine
DX: M54.9 Dorsalgia, unspecified (principal); M51.26 Other intervertebral disc displacement, lumbar region; M51.27 Other intervertebral disc displacement, lumbosacral region; M48.061 Spinal stenosis, lumbar region without neurogenic claudication; M48.07 Spinal stenosis, lumbosacral region; Z98.1 Arthrodesis status
CPT/HCPCS: 72131

== ENCOUNTER → 2021-06-27 13:25 | Outpatient (CLI) | payer MEDICARE, OTHER, SELFPAY ==
[2018-03-28 12:34] VITALS: BMI 21.7
--- NOTE | 2021-06-27 | DI.RAD.S_ITS ---
PROCEDURE: XR CERVICAL SPINE 2V OR 3V INDICATIONS: Other cervical disc degeneration, unspecified cervical regio TECHNIQUE: 3 view(s) of the cervical spine were acquired. COMPARISON: None. FINDINGS: Bones: No acute, displaced fracture to the T2 level. The odontoid is not well seen. No suspicious bony lesions. At least moderate disc height loss at C5-C7 with endplate sclerosis. Uncovertebral/facet arthrosis is noted. Soft tissues: No prevertebral soft tissue swelling. IMPRESSION: No acute osseous abnormality. Dictated by: Pavan Thomas M.D. on 06/27/2021 at 15:12 Approved by: Pavan Thomas M.D. on 06/27/2021 at 15:15
== END ==
PROVIDERS: PCP Family Medicine; Referring Provider Physician Assistant; Visit Provider Physician Assistant
DX: M50.30 Other cervical disc degeneration, unspecified cervical region (principal); M47.812 Spondylosis without myelopathy or radiculopathy, cervical region
CPT/HCPCS: 72040

== ENCOUNTER → 2022-08-04 13:14 | Outpatient (CLI) | payer MEDICARE, OTHER, SELFPAY ==
[2018-03-28 12:34] VITALS: BMI 21.7
--- NOTE | 2022-08-04 | DI.RAD.S_ITS ---
PROCEDURE: FL BARIUM SWALLOW W SPEECH INDICATIONS: Other dysphagia COMPARISON: None. TECHNIQUE: Examination was conducted in conjunction with speech pathology per standard protocol. In the lateral projection, filming was performed of the patient swallowing. AP projection filming may also be performed with patient swallowing. COMPARISON: FINDINGS: Function: The patient was examined under fluoroscopy in lateral projection. No laryngotracheal penetration or aspiration. No pathologic vallecular pooling. There is moderate posterior impression in the upper esophagus at the level of C5-C6 suggesting cricopharyngeal achalasia. Prominent aortic bulb. There is transient obstruction of the calibrated barium pill at the level of the aortic arch. There is mild esophageal dysmotility. Morphology: No cricopharyngeal bar is identified. No cervical esophageal webs. No Zenker's diverticulum. No strictures. IMPRESSION: 1. No laryngeal penetration or aspiration. Please also see speech pathologist's report for detail. 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 3. Transient obstruction of the calibrated barium pill at level of prominent aortic arch. 4. Mild esophageal dysmotility. Dictated by: Huong Carroll M.D. on 08/05/2022 at 10:14 Approved by: Huong Carroll M.D. on 08/05/2022 at 10:24
--- NOTE | 2022-08-04 14:30 | ST.SWALLOW ---
Visit Care Team Role Provider Type Lawrence Morin MD Family Provider Non-Staff Primary Care Provider Specialty: Family Practice Address: [address] [place] [address], [id number] Email: Thom Farr MD Attending Provider Physician Referring Provider Specialty: Ear, Nose, Throat Address: [address] [place] [address], [address] Email: [email or web address] Modified Barium Swallow Study NEWS AGENT Modified Barium Swallow Study Start: 08/04/22 14:05 Freq: Status: Active Protocol: Document 08/04/22 14:05 ZS (Rec: 08/04/22 14:12 ZS [id number]) Modified Barium Swallow Study Total Time Visit Start Time 13:30 Visit Stop Time 13:45 Total Visit Minutes 15 Visit Information Visit Number Initial Evaluation Setting Setting Outpatient Care Patient Information Identification Type Name Patient History Job is an 81-year old female referred for MBS following clinical swallow evaluation on 07/01/2022. CSE Hx: Pt was referred for swallowing difficulty and vocal hoarseness related to GERD by Dr. Farr. She reported that she will have difficulty with swallowing pills with water. She described being able to swallow the pills, but the water 'shoots back into my mouth.' Pt reports she has a long history of GERD. Currently she does not use PPIs, but will take Rolaids ar Mylanta when she experienced acid reflux. In addition to the regurgitation of water into her mouth, the pt reports a sensation of globus in her mid chest when she swallows. She reported that with water, the sensation will diminish most of the time. She described the sensation as a tightness. Subjective Observations Job arrived on time and ambulated independently with the use of a cane. Provided education on process and procedure and Job agreed to participate in all assessment activities. She reported sometimes when she is blowing her nose, she needs to blow softly, otherwise her airway closes up and she is unable to blow her nose. Patient Positioning Position View Lat-A/P Imaging Lateral View Textures Administered Trials Presented Thin Liquid via Cup,[place] Liquid via Cup,Regular Textures Oral Phase Source: MBSIMP (TM) (C) Bolus Specific Scoring Grid Lip Closure No Impairment (WNL) Tongue Control During Bolus Hold No Impairment (WNL) Bolus Prep/Mastication No Impairment (WNL) Bolus Transport/Lingual Motion No Impairment (WNL) A/P Lingual Propulsion Delay No Oral Residue WFL Residue Clearing No Impairment (WNL) Nasal Regurgitation No Additional Oral Phase Observations No anterior or posterior loss of bolus during tongue hold. Mastication and a/p propulsion were timely and efficient. Minimal oral residue observed, with majority on base of tongue. Pt cleared residue with spontaneous second swallow. Pharyngeal Phase Source: MBSIMP (TM) (C) Bolus Specific Scoring Grid Delayed Initiation of Pharyngeal Swallow No Soft Palate Elevation No Impairment (WNL) Tongue Base Strength/Range of Motion No Impairment (WNL) Residue Along the Tongue Base Yes Clearance of Residue Along Tongue Base WFL Laryngeal Elevation No Impairment (WNL) Anterior Hyoid Movement No Impairment (WNL) Epiglottic Range of Motion Mild Impairment Vallecular Residue Yes Clearance of Vallecular Residue No Impairment (WNL) Laryngeal Vestibular Closure No Impairment (WNL) Pharyngeal Stripping Wave No Impairment (WNL) Pharyngeal Contraction No Impairment (WNL) Posterior Pharyngeal Wall Residue No Residue in the Pyriform Sinuses Yes Clearance of Residue in the Pyriform WFL Sinuses Additional Pharyngeal Phase Observations Pharyngeal swallow triggered with head of bolus at ramus. Hyolaryngeal elevation and excursion was WNL and laryngeal vestibular closure was WNL despite epiglottis only inverting to horizontal position. No instances of aspiration or penetration observed. Large cricopharyngeal bar observed near level of PES. Bolus moved rapidly though PES, with solid observed to remain just below PES following swallow. When residue from solid was swallowed, bolus below PES jenn to meet incoming bolus from above PES. Pt cleared residue with spontaneous second swallow. Pt did not report instances of regurgitation during swallow study and no regurgitation observed with liquid trials. A/P View Textures Administered Trials Presented Thin Liquid via Cup,Barium Tablet A/P View Observations Pharyngeal Contraction No Impairment (WNL) Esophageal Function Slowed Clearing Esophageal Clearance Upright Position Mild Impairment Additional Observations Slowed clearing of bolus and barium tablet through esophagus with several swallows of thin water required to move barium tablet through. This is consistent with pt's history of GERD. Clinical Impressions Findings The pt presents with swallowing WFL. She presents with a large cricopharyngeal bar and reduced epiglottic inversion, however, pt exhibited excellent airway protection with all textures and exhibited no aspiration or penetration. Regurgitation described by pt may be secondary to reflux/GERD and could involve the PES, though this was not directly observed in this study. Recommend referral to GI to further assess esophageal phase and possible retrograde flow through PES. Patient Appropriate for Therapy No Recommendations Diet Liquids Order Thin Diet Order Regular Medication Recommendation As Tolerated Treatment Plan Recommended Referrals GI Consult Compensatory Strategies Recommendations Small Bites and Sips,Alternate Liquids/Solids
== END ==
PROVIDERS: Family Provider Family Medicine; PCP Family Medicine; Referring Provider Otolaryngology; Visit Provider Otolaryngology
DX: R13.19 Other dysphagia (principal); K22.4 Dyskinesia of esophagus
CPT/HCPCS: 74230; 92611

== ENCOUNTER 2022-08-04 14:30 | Outpatient (RCR) | payer MEDICARE, OTHER, SELFPAY ==
[2018-03-28 12:34] VITALS: BMI 21.7
--- NOTE | 2022-07-01 16:51 | ST.OPIE ---
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 Farr. She reported that she will have difficulty with swallowing pills with water. She described being able to swallow the pills, but the water shoots back into my mouth. Pt reports she has a long history of GERD. Currently she does not use PPIs, but will take Rolaids or Mylanta when she experienced acid reflux. In addition to the regurgitation of water into her mouth, the pt reports a sensation of globus in her mid chest when she swallows. She reported that with water, the sensation will diminish most of the time. She described the sensation as a tightness. Reported by Patient Other Symptoms Difficulty swallowing liquids, Food gets stuck Current Diet Regular,Thin liquids Baseline Feeding Method Independent in self-feeding Objective Assessment Mental Status Alert,Responsive,Cooperative Oral Integrity WFL Dentition Within normal limits Lip Function Within normal limits Observation of Lips at Rest Symmetrical Pucker Within normal limits Lip Retraction Within normal limits Tongue Function Within normal limits Observations of Tongue at Rest Within normal limits Tongue Protrusion Within normal limits Tongue Retraction Within normal limits Tongue Lateralization Within normal limits Jaw Function Within normal limits Food and Liquid Trials Position During Assessment Upright (90 degrees) Liquids Trialed Thin Solids Trialed Regular Administration Type Self-feeding Oral Impairment Within normal limits Oral Phase Comments Oral phase was noted to be WNL for form and function. Rotary chew pattern, good bolus control and AP transit. No oral residue observed Pharyngeal Impairment Within normal limits Pharyngeal Phase Comments Pt demonstrated a prompt swallow with good hyolaryngeal elevation. No cough/choke observed. Pt reported tno regurgitation, but did report globus sensation after eating keven cracker. Water presented reduced to sensation a bit, however, she did note that it was still present after 5 minutes. Fatigue/Endurance Endurance WNL Strategies Attempted Effortful swallow Findings Swallowing Function Pharyngoesophageal phase dysphagia Severity of Swallow Impairment Mildly-moderately impaired Comments suspect esophageal related dysphagia Prognosis Good Based on Cognitive status Impact on Safety and Functioning Risk for aspiration Recommendations Instrumental Assessment Yes Swallowing Treatment Yes Frequency Following results of MBSS Recommended Solids Regular Recommended Liquids Thin Safety Precautions/Swallowing Slow rate; swallow between Recommendations bites,Alternate liquids and solids Medication Recommendations As Tolerated Education Patient/Caregiver Education Described results of evaluation,Patient expressed understanding of evaluation, Patient expressed agreement with goals & treatment plans Goals Short-term Goals Pt will participate in MBSS to rule out pharyngeal phase dysphagia POC to be determined based on MBSS results
--- NOTE | 2022-07-01 16:52 | ST.OPPOC ---
Physical, Occupational & Speech Therapy At [facility] Visit Care Team Role Provider Type Lawrence Morin MD Family Provider Non-Staff Primary Care Provider Address: [address] [place] [address], [id number] Thom Farr MD Attending Provider Physician Referring Provider Address: [address] [place] [address], [id number] Speech Pathology Plan of Care Plan of Care Dates -08/31/[address] Morin Patient History Pt was referred for swallowing difficulty and vocal hoarseness related to GERD by Dr. Farr. She reported that she will have difficulty with swallowing pills with water. She described being able to swallow the pills, but the water shoots back into my mouth. Pt reports she has a long history of GERD. Currently she does not use PPIs, but will take Rolaids or Mylanta when she experienced acid reflux. In addition to the regurgitation of water into her mouth, the pt reports a sensation of globus in her mid chest when she swallows. She reported that with water, the sensation will diminish most of the time. She described the sensation as a tightness. Short-term Goals Pt will participate in MBSS to rule out pharyngeal phase dysphagia POC to be determined based on MBSS results Comment: Electronically Signed by: SHADY Zarate 07/01/22 3182 If you are in agreement with this Plan of Care, please return a signed and dated copy. I have reviewed this Plan of Care and certify that the skilled therapy services above are required to meet the patient?s needs. Physician Signature Date Printed Name and Credentials Clinical Instructor Signature Printed Name and Credentials
--- NOTE | 2022-07-29 14:32 | ST.IPDYTX ---
Visit Care Team Role Provider Type Lawrence Morin MD Family Provider Non-Staff Primary Care Provider Specialty: Family Practice Address: [address] [place] [address], [address] Email: Thom Farr MD Attending Provider Physician Referring Provider Specialty: Ear, Nose, Throat Address: [address] [place] [address], [address] Email: [email or web address] QUILT SEWER Dysphagia Treatment QUILT SEWER Dysphagia Treatment Start: 07/01/22 13:36 Freq: Status: Active Protocol: Document 07/29/22 14:12 POK (Rec: 07/29/22 14:32 LNK [id number]) Dysphagia Treatment Session Time Visit Start Time 13:30 Visit Stop Time 14:15 Total Visit Minutes 45 Visit Information Plan of Care Dates -08/31/22 Setting Assessment Location Outpatient Care Visit Type Note Type Treatment Note Next Note Type Next Note Type Treatment Note Patient Information Identification Type Name,Date of Subjective Observations Pt thought she was coming in for the MBSS evaluation today. Treatment Treatment Activities No PO trials today as pt was under the impression that she was having MBSS today. Apologized to the pt about the mishandling of her referral. Pt was understanding and she was given the phone number for DI scheduling. Spent session with pt. Used computer graphic application to illustrate the anatomy and function of the normal swallow. Additionally the suspected area of concern was discussed. Called Dr. Farr' office and spoke with a telesales representative regarding the need for a referral to DI for the pt. Was told that the referral to DI would be sent na. Treatment Plan Dysphagia Goals MBSS will be scheduled and completed
== END 2022-12-24 11:45 | disposition home or self-care (01) ==
LOC: SP 14:30
PROVIDERS: Family Provider Family Medicine; PCP Family Medicine; Referring Provider Otolaryngology; Visit Provider Otolaryngology
DX: R13.19 Other dysphagia (principal); R49.0 Dysphonia
CPT/HCPCS: 92526; 92610

== ENCOUNTER → 2023-04-07 12:54 | Outpatient (CLI) | payer MEDICARE, OTHER, SELFPAY ==
[2018-03-28 12:34] VITALS: BMI 21.7
[2023-04-07 16:35] LABS: Add Manual Diff / Slide Review NO; Basophils Absolute Auto 0 /uL (0-100); Basophils Percent Auto 0.6 % (0-2); Eosinophils Absolute Auto 0 /uL (0-450); Eosinophils Percent Auto 0.5 % (2-4); Hematocrit 33.4 % (36-46); Hemoglobin 11.4 g/dL (12.0-16.0); Lymphocytes Absolute Auto 1400 /uL (1100-4500); Lymphocytes Percent Auto 17.8 % (25-40); Mean Corpuscular HGB Conc 34.3 % (30-36); Mean Corpuscular Hemoglobin 30.4 PG (26-34); Mean Corpuscular Volume 88.8 fL (80-100); Monocytes Absolute Auto 600 /uL (0-900); Monocytes Percent Auto 7.4 % (3-14); Neutrophils Absolute Auto 5700 /uL (1500-7000); Neutrophils Percent Auto 73.7 % (50-75); Platelet Count 303 X10^3/uL (150-400); Red Blood Cell Count 3.76 X10^6/uL (4.0-5.2); Red Cell Distribution Width 13.3 % (11.6-14.8); White Blood Cell Count 7.8 X10^3/uL (4.5-11.0)
[2023-04-07 17:05] LABS: BUN Creatinine Ratio 21.7 (6-22); Blood Urea Nitrogen 13 mg/dL (7-17); Calcium 9.2 mg/dL (8.4-10.2); Carbon Dioxide 27 mmol/L (22-32); Chloride 99 mmol/L (98-107); Estimated Glomerular Filt Rate > 60 mL/min (>60); Glucose 91 mg/dL (80-110); HEMOLYSIS < 15 (0-50); Potassium 4.3 mmol/L (3.4-5.1); Sodium 133 mmol/L (137-145)
[2023-04-08 08:10] LABS: Labcorp Hemoglobin (Hb) A1c 5.7 % (4.8-5.6)
== END ==
PROVIDERS: Family Provider Family Medicine; PCP Family Medicine; Referring Provider Orthopaedic Surgery Foot and Ankle Surgery; Visit Provider Orthopaedic Surgery Foot and Ankle Surgery
DX: Z01.818 Encounter for other preprocedural examination (principal); R73.9 Hyperglycemia, unspecified; Z01.812 Encounter for preprocedural laboratory examination
CPT/HCPCS: 36415; 80048; 83036; 85025; 93005

== ENCOUNTER → 2023-06-11 16:03 | Outpatient (CLI) | payer MEDICARE, OTHER, SELFPAY ==
[2018-03-28 12:34] VITALS: BMI 21.7
--- NOTE | 2023-06-11 16:05 | DI.RAD.S_ITS ---
PROCEDURE: XR SHOULDER RT MIN 2V INDICATIONS: R shoulder injury pain/reduced ROM arthroplasty hx TECHNIQUE: 3 views of the shoulder were acquired. COMPARISON: [facility], CR, XR SHOULDER RT 1V, 03/28/2018, 10:22. FINDINGS: Bones: Expected appearance of total right shoulder arthroplasty. No evidence of hardware failure or loosening. No fractures or dislocations. No suspicious bony lesions. Visualized ribs appear intact. Soft tissues: No suspicious soft tissue calcifications. IMPRESSION: Expected appearance of total right shoulder arthroplasty. Dictated by: Casey Estes M.D. on 06/11/2023 at 16:52 Approved by: Casey Estes M.D. on 06/11/2023 at 16:54
== END ==
PROVIDERS: Family Provider Family Medicine; PCP Family Medicine; Referring Provider Student in an Organized Health Care Education/Training Program; Visit Provider Student in an Organized Health Care Education/Training Program
DX: S49.91XA Unspecified injury of right shoulder and upper arm, initial encounter (principal); X58.XXXA Exposure to other specified factors, initial encounter; Z96.611 Presence of right artificial shoulder joint
CPT/HCPCS: 73030

== ENCOUNTER → 2023-07-02 13:56 | Outpatient (CLI) | payer MEDICARE, OTHER, SELFPAY ==
[2018-03-28 12:34] VITALS: BMI 21.7
--- NOTE | 2023-07-02 13:57 | DI.RAD.S_ITS ---
PROCEDURE: FL SHOULDER INJECTION MR/CT RT INDICATIONS: RIGHT SHOULDER PAIN COMPARISON: [facility], CR, XR SHOULDER RT MIN 2V, 06/11/2023, 16:06. TECHNIQUE: The indications, alternatives, benefits, risks, and complications of the procedure were explained to the patient. Written informed consent was obtained and placed in the chart. The shoulder was examined fluoroscopically and a site for needle placement chosen for entry into the glenohumeral joint from an anterior approach. The skin was prepped and draped in a sterile fashion, and 1% lidocaine infiltrated from skin down to joint capsule. A spinal needle was inserted into the glenohumeral joint, and a small amount of iodinated contrast media injected to confirm intra-articular placement of the needle tip. This was followed by approximately 12 mL of iodinated contrast. The needle was removed and a dressing was applied. The patient was given postprocedural instructions and sent to the CT suite for imaging. FINDINGS: Reverse right shoulder arthroplasty. A single fluoroscopic spot image demonstrates intra-articular location of injected iodinated contrast. IMPRESSION: Successful fluoroscopically guided administration of iodinated contrast solution into the shoulder joint for CT arthrogram. Dictated by: Gary Shukla M.D. on 07/02/2023 at 14:45 Approved by: Gary Shukla M.D. on 07/02/2023 at 14:46
--- NOTE | 2023-07-02 13:58 | DI.CT.S_ITS ---
PROCEDURE: CT SHOULDER RIGHT WITH CON INDICATIONS: RIGHT SHOULDER PAIN TECHNIQUE: After the intra-articular administration of 12 mL of dilute non-ionic contrast, 1-1.5 mm thick sections acquired from the acromioclavicular joint to the inferior scapula, with coronal and sagittal reformatting. COMPARISON: [facility] [place], CR, XR SHOULDER 2+ VIEWS RIGHT, 04/19/2023, 11:39. [facility], CR, XR SHOULDER RT MIN 2V, 06/11/2023, 16:06. [facility], RF, FL SHOULDER INJECTION MR/CT RT, 07/02/2023, 14:12. FINDINGS: Image quality: There is expected metal streak artifact related to the right shoulder prosthesis despite the use of artifact reduction techniques. Diagnostic information is obtained. Bones: There is a minimally displaced fracture of the spine of the scapula. Mild periosteal new bone formation is resort motion mildly compromises evaluation of the included ribs. Postsurgical changes are seen from a reverse right total shoulder arthroplasty. Hardware components are in expected positions without loosening or perihardware fracture. Postsurgical changes are seen at the acromioclavicular joint without recurrent narrowing of the supraspinatus outlet. Soft tissues: No filling defect is seen within the glenohumeral joint space. There is moderate atrophy and fatty infiltration of the supraspinatus and infraspinatus muscles in the superior portion of the subscapularis muscle, consistent with chronic tendon tearing. However, the tendons and ligaments are not well evaluated on CT. Pleural-parenchymal scarring is seen in the right lung apex. The included lung is otherwise clear. IMPRESSION: 1. Minimally displaced fracture at the base of the scapular spine with mild periosteal new bone formation suggesting healing changes. No definite osseous bridging is seen. 2. Postsurgical changes from reversed total shoulder arthroplasty with hardware components in expected positions. 3. Atrophy and fatty infiltration of the supraspinatus, infraspinatus, and subscapularis muscles is suspicious for underlying chronic tendon tearing. 4. Postsurgical changes at the acromioclavicular joint. No recurrent narrowing of the supraspinatus outlet. Approved by: Jaciel Hernandez M.D. on 07/05/2023 at 11:33
[2023-07-02] MEDS: LIDOCAINE 1% 20 ML INJ (14:32)
== END ==
PROVIDERS: Family Provider Family Medicine; PCP Family Medicine; Referring Provider Orthopaedic Surgery; Visit Provider Orthopaedic Surgery
DX: M12.811 Other specific arthropathies, not elsewhere classified, right shoulder (principal); S42.191A Fracture of other part of scapula, right shoulder, initial encounter for closed fracture; Z96.611 Presence of right artificial shoulder joint; M62.511 Muscle wasting and atrophy, not elsewhere classified, right shoulder
CPT/HCPCS: 23350; 73201; 77002

== ENCOUNTER 2023-07-09 06:26 | Day surgery (SDC) | payer MEDICARE, OTHER, SELFPAY ==
[2018-03-28 12:34] VITALS: BMI 21.7
[2023-07-01 09:50] VITALS: BMI 23.0
[2023-07-09] VITALS (14 sets, daily range): BP systolic 97–135; BP diastolic 56–88; PULSE 63–98; RESP 8–16; TEMP 36.1–36.9; O2SAT 91–100; BMI 23.0
--- NOTE | 2023-07-09 06:00 | DI.RAD.S_ITS ---
PROCEDURE: XR KNEE RT 1TO2V INDICATIONS: TKA TECHNIQUE: 2 view(s) of the knee acquired. COMPARISON: [facility] KATH Darling, XR KNEE ARTHRITIC SERIES BI, 03/11/2023, 17:05. FINDINGS: Bones: Patient is status post knee joint arthroplasty. Hardware components are in expected positions. Visualized bony structures are intact. Soft tissues: Overlying postoperative changes are noted. IMPRESSION: Expected postoperative appearance of left knee arthroplasty. Dictated by: Augustus Pickett M.D. on 07/09/2023 at 11:44 Approved by: Augustus Pickett M.D. on 07/09/2023 at 11:45
--- NOTE | 2023-07-09 07:20 | PM.PREOP ---
Pre-operative Note Interval Note History & Physical reviewed/Exam performed by Physician: Yes Changes to H&P: No
[2023-07-09] MEDS: TRANEXAMIC ACID 1,000 MG VIAL 2000 MG INJ ×2 (08:20→09:40)
[2023-07-09] MEDS: BUPIVACAINE LIPOSOME 266 MG/20 ML VIAL INJ (08:21)
[2023-07-09] MEDS: BUPIVACAINE 0.25% (PF) 60 ML, EPINEPHrine 0.3 MG INJ (08:22)
--- NOTE | 2023-07-09 10:22 | SUR.PHASEI ---
[id number] Block completed in PACU by Dr. Rosario (see anesthesia documentation). Patient tolerated procedure well on all monitors, remained asleep throughout procedure.
--- NOTE | 2023-07-09 10:41 | PM.OP.1 ---
Operative Date/Time/Diagnoses Date of procedure: 07/09/23 Time of procedure: 08:00 Pre-op diagnosis: Left knee arthritis Post-op diagnosis: same Procedure & Clinicians Procedure: Total knee replacement left CPT code 92655 Same procedure as scheduled: Yes Indications: The patient is a 82 with end-stage [id number] knee arthritis. The patient has a significant left valgus knee arthritis. They have failed conservative treatment with activity modifications, injections, physical therapy and bracing. They has been indicated for total knee replacement. The risks and benefits of the procedure have been discussed with the patient even opportunity to ask questions. The risks of surgery include but are not limited to infection, malunion, nonunion, fracture, loosening, persistence of pain, damage to nerves and blood vessels, need for additional procedures, DVT, PE, cardiopulmonary complications and . The patient expressed a thorough understanding of the risks and benefits of surgery and has elected to proceed. Consent was signed in the office. Physician pharmacy sales assistant statement---- During the operation the services of physician acute care nursing assistant were medically indicated and necessary to provide the exposure of the operative site for the surgical procedure and to maintain the limb in a proper position to carry out the procedure safely and efficiently. Without a qualified pharmacy sales assistant being present this would extend the operative procedure and would have made the procedure more technically difficult to perform. The acute care nursing assistant was medically necessary for the proper positioning, retraction and manipulation of the limb, proper exposure, and manipulation of the tissue for implantation implants and closure. Surgeon: Sheeba Sanders Bark Spudder: Ave Gutierrez Anesthesia Type: General, Peripheral nerve block and Local Operative Notes Findings: End-stage valgus pattern arthritis, tricompartmental arthritis Closure Type: primary Specimen(s): none sent Prosthetic devices, grafts, tissues, transplants, or devices: Lizarraga and nephew journey BCS 2 Femur 4 cobalt chromium Tibia 3 Poly 10 mm Patella 32 by 7.5 Estimated Blood Loss (mL): 100 Tourniquet time (min): 80 Procedure in detail: Patient was seen in the preoperative area where the patient and site of surgery were identified in the operative knee was marked informed consent confirmed. This was the left knee. Patient received the appropriate preoperative antibiotics this was 2 g of Ancef. And other preoperative medications and was taken to the operating room placed on operating table in the supine position. Spinal anesthetic were administered. The operative extremity was then prepped and draped in the standard sterile fashion with a nonsterile tourniquet high on the thigh. Patient was placed on the green foam bolsters. A lateral post was placed at the level of the proximal thigh /trochanter area as a lateral post. Formal time-out procedure was performed confirming the patient's side and site of surgery and administration of appropriate preoperative antibiotics and implants were in the room accounted for. All were in agreement. Patient received a preoperative dose of tranexamic acid and then a 2nd dose at tourniquet release Patient was prepped and draped in the standard sterile fashion and the foot was placed into the leg powell. This was taken into high flexion and the incision was marked out over the anterior knee to the level of the medial tubercle tubercle. The Esmarch was then used for exsanguination and the tourniquet was inflated to 250 mmHg. Was made through the skin and subcutaneous tissue in high flexion this was then brought down into 30? of flexion for the medial parapatellar arthrotomy. A marker pen was used to ajith the arthrotomy site for later repair. Joint fluid was evacuated. The anterior osteophytes and soft tissues were removed. Very minimal medial release was initially made along the medial proximal tibia with Bovie. The patella was 1st cut using the saw sized and prepped and then subluxed throughout the case and protected. The leg was then taken into extension and the patella was everted and the patella was cut to accommodate the patellar button. This was sized to a 32 mm button for a 7.5 mm thickness to recreate the original dimensions of the patella. Poly was removed and the protector replaced and the patella was subluxed and the knee was taken back up into flexion and attention was returned to the femur. Then the rotational landmarks of Whitesides line and the trans epicondylar axis were marked on the femur with electrocautery. Then the intramedullary guide for the femur was created. The distal femoral cut was made in 5? of valgus using the intramedullary guide with the cut setting on 2+ as the patient did have a preoperative flexion contracture. The ACL and PCL released. The proximal tibia was then cut using the intramedullary guide, taking 9 mm off the less involved side this was the lateral plateau. The Luis wing was used to check the slope through the guide. Second pass was made through the tibial cut guide with the saw after the cut tibia was removed plane down about 1 more mm and further smooth then the resection surface. In extension remainders of the medial and lateral menisci were removed. The extension flexion gaps were then checked using both the flexion extension blocks. And was selected for a 9 mm poly femur was then sized and the rotation set using the posterior condyle referencing 5? of external rotation to compensate for this valgus knee. This measured a size 4. Cut block was then placed and the anterior, posterior and chamfer cuts were then made. The posterior osteophytes and soft tissues were then removed. Then in extension the posterior capsule was injected with a mixture of 40 mL of 0.25% Marcaine and 20 mL of Exparel care to avoid excessive injection posterior laterally. The remainder of this was saved for the capsule and subcutaneous tissue and placed during cement curing. Attention was then returned to the tibia and this was prepared with the rotation set by the extramedullary guide. Lined up with the tibial crest and the 2nd toe. The tibial trial was then pinned in place and the trial femoral components were placed. Then the intercondylar notch was cut through the femoral trial to create the box this was done with the distal than the proximal drill and then the box cut distally and then proximally. Next the insert was placed and the trial poly placed. This was stable in flexion and extension and there was a 0-135 degree range of motion. The tibia was then finished with the drill and flange cuts and then this was removed. All trials were removed. The wound and bone was irrigated with pulsatile lavage. This was then dried with a sponge. The components were verified and opened and the cement was mixed. Cement was applied to the components and then to the bone then the tibia was cemented in place 1st followed by the femur then the patella. Excess cement was removed. With care looking around the back of the knee. Remainder of the injection was injected around the capsule. trial poly was placed back in the leg was placed into extension for the patellar cementing. After this was cured approximately 15 minutes later and the dilute Betadine solution was placed for at least 3 minutes in the wound this was then irrigated out and the final poly was placed. This was a 10mm poly. The tourniquet was released hemostasis was achieved. Final 1g of tranexamic acid was given IV at the time of tourniquet release. The capsule was closed with 1. Ethibond suture. Subcutaneous layer was closed with 3-0 Vicryl suture. Skin was closed with a running V lock suture Stratafix Monocryl type suture and Dermabond. A Aquacel dressing was applioed. An Oracio wrap was applied. Anesthetic was terminated the patient was woken from anesthesia and taken to recovery room in good condition. There no immediate complications from this procedure. The patient will be maintained on a standard total knee replacement protocol with weight-bearing as tolerated. Complications: none Post-operative Condition: stable Disposition: PACU Plan for aftercare: Weightbear as tolerated, commenced immediate range of motion physical therapy. Discharge when stable and passes physical therapy. Anticipate discharge home postop day 1
[2023-07-09] MEDS: OXYCODONE IR 5 MG TABLET PO ×3 (10:43→21:03)
--- NOTE | 2023-07-09 11:05 | P.PCN_ITS ---
Peripheral Nerve Block Note Pre-Procedure Reason for block: Attending surgeon request/order for post-op pain management Pre-procedure checklist: Patient examined and chart reviewed, Risks, benefits, alternatives of block discussed, questions answered, Verification of anti- coagulation status, Site confirmed, Timeout performed and Standard ASA monitors applied Consent obtained from: Patient Procedure Date of procedure: 07/09/23 Start Time: 10:15 End Time: 10:20 Performed by: Paloma Rosario Location: PACU Position: Supine Laterality: Left Sterile Technique: Sterile barrier maintained, Sterile gloves, Mask and Chloraprep Equipment Single injection - Needle brand, gauge, length: Pajunk, 21G 100mm Medications Medications - enter concentration (%) & mL in comment field: Ropivacaine (0.2%, 15mls) Incremental aspiration prior to injection: Yes Ultrasound Reason for Ultrasound: U/S guidance used for needle placement Image printed/saved/archived: Yes Limited exam reveals no abnormal findings: Yes Vital signs VS: - 07/09/23 07:00 07/09/23 10:08 07/09/23 10:14 Temperature 97.7 F 97.6 F Pulse Rate 63 88 88 Respiratory Rate 16 11 L 11 L Blood Pressure 97/56 L 123/71 124/67 Pulse Oximetry 100 91 98 Oxygen Delivery Method Room Air Room Air Room Air Oxygen Flow Rate 0 2 07/09/23 10:19 07/09/23 10:24 07/09/23 10:39 Temperature 97.5 F L 97.6 F Pulse Rate 87 90 88 Respiratory Rate 8 L 10 L 12 Blood Pressure 113/56 L 122/62 129/65 Pulse Oximetry 98 98 95 Oxygen Delivery Method Room Air Room Air Nasal Cannula Oxygen Flow Rate 0 2 2 07/09/23 10:54 Temperature 97.1 F L Pulse Rate 84 Respiratory Rate 14 Blood Pressure 134/70 Pulse Oximetry 97 Oxygen Delivery Method Nasal Cannula Oxygen Flow Rate 2 Oxygen Delivery Method Nasal Cannula Oxygen Flow Rate 2 Events Nerve Block Events: Procedure uneventful
[2023-07-09] MEDS: LACTATED RINGERS 1,000 ML 100 ML IV ×2 (12:08→23:43)
[2023-07-09] MEDS: CEFAZOLIN 2 GM/100 ML PREMIX 100 ML IV ×2 (12:08→19:55)
--- NOTE | 2023-07-09 14:20 | PT.IIE ---
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) History of right breast biopsy Hx of arthroscopy of right knee Hx of bilateral cataract extraction Hx of tonsillectomy Medical History (Last Updated 07/01/23 @ 10:21 by Debbie Tierney RN) Arthritis Back pain Diverticulosis GERD (gastroesophageal reflux disease) History of COVID-19 (08/2022) [place] (hard of hearing) Migraines Numbness Osteoporosis Restless leg syndrome Rosacea Scoliosis Physical Therapy Inpatient Evaluation/Re-Eval M1 PT/OT-IP Prior Functional Status Start: 07/09/23 16:07 Freq: NEEDED Status: Active Protocol: Document 07/09/23 14:20 AB (Rec: 07/09/23 16:21 AB [email or web address]) Medical Review Prior Functional Status Medical History Reviewed Yes Communication able to make needs known Mobility and Gait pt stated that she is modified independent with all mobilities and ambulation using a hurrycane but occasionally ambulates without AD Social History Household Members spouse Living Arrangements House Number of Floors (Floors) Two Floors Number of Stairs To Enter/Railing? pt stays on the main level of the house 1 step to enter the house Home Environment Standard Height Toilet,Walk in Shower Home Equipment Front Wheel Walker,Four Wheel Walker,Hand Held Shower Additional Social History Comment pt has a hurrycane pt stated that she has a recliner that she can sleep on if needed M2 PT-IP Current Condition Start: 07/09/23 16:07 Freq: NEEDED Status: Active Protocol: Document 07/09/23 14:20 AB (Rec: 07/09/23 16:21 AB [email or web address]) Physical Therapy Current Condition Current Condition Evaluation Date 07/09/23 Treatment Diagnosis s/p L TKA; difficulty in walking Onset Date 07/09/23 M3 PT-IP Subjective Start: 07/09/23 16:07 Freq: NEEDED Status: Active Protocol: Document 07/09/23 14:20 AB (Rec: 07/09/23 16:21 AB [email or web address]) Subjective Physical Therapy Visit Type Type Initial Evaluation Visit Start Time 14:20 Visit Stop Time 15:27 Total Visit Minutes 67 Number of SCAN COORDINATOR Visits 0 Physical Therapy Visit Comments Patient Comments agreeable to do PT Therapy Pain Assessment Pain When Pain Assessed At Rest Pain Present Pain Present Pain Reported Location Left Knee Scale Used uncomfortable per pt Pain Management Techniques Apply Cold,Distraction, Modification of Treatment,Re- positioning M4 PT-IP Mobility and Gait Start: 07/09/23 16:07 Freq: NEEDED Status: Active Protocol: Document 07/09/23 14:20 AB (Rec: 07/09/23 16:21 AB [email or web address]) PT-Bed Mobility Assessment Supine to Sit Supine to Sit Standby Assistance Sit to Supine Sit to Supine Minimal Assistance PT-Transfer Assessment Sit to and From Stand Sit to and from Stand Minimal Assistance,1 Person Assistance,Use of Upper Extremities Equipment Transfer Assistive Device Gait Belt,Front Wheeled Walker Orthotic/Prosthetic Devices or Brace: No Transfers Transfer Destination Bedside Commode Transfer Technique Stand Step Pivot Transfer Ability Level of Assist Minimal Assistance,1 Person Assistance,Use of Upper Extremities Comments Mobility Comments pt supine in bed. spouse in room. BP: 126/64. O2 sat at room air 100% TN 84. provided pt with post-op folder. educated on safety and LE exercises. completed heel slides prior to mobilizing. completed supine to sit SBA. pt stated that she is leaking. bedside commode positioned next to pt. pt completed sit to stand min A and cues and step transfer to commode using FWW min A. completed sit to stand from the commode min A and nurse assisted pt with hygiene care. pt requiring CGA to min A with standing balance using FWW for support. pt ambulated more in the room using FWW ~ 20 ft and sat back on EOB. pt presents with unsteady antalgic gait with decrease LE elevation and step length. pt also has a stooped posture and cued for upright positioning but pt stated that she has scoliosis, back and cervical surgeries and unable to stand upright. c/o increase knee pain during walking. pt completed sit to supine min A with LE elevation to bed. positioned pt on the bed. call light and table placed within reach. Gait Assessment Gait Gait Assistance Required: Minimum Assistance Distance (Feet) 20 Able to Maintain Weight Bearing Status Yes During Gait Assistive Devices Assistive Device Gait Belt,Front Wheeled Walker Orthotic/Prosthetic Devices or Brace: No Gait Deviations General Gait Pattern Antalgic,Decreased Stride Length,Decreased Feet Clearance,Step-to Gait Factors Limiting Gait Function Factors Limiting Gait Function Decreased Activity Tolerance, Decreased Sensation,Decreased Strength,Difficulty Following Directions,Limited Range of Motion,Pain,Poor Balance,Poor Safety Awareness PT-Balance Assessment Sitting Balance and Reactions Static Sitting Balance Ability Good Dynamic Sitting Balance Ability Fair Standing Balance and Reactions Static Standing Balance Ability Fair Dynamic Standing Balance Ability Fair Device Used FWW M5 PT-IP Objective Assessments Start: 07/09/23 16:07 Freq: NEEDED Status: Active Protocol: Document 07/09/23 14:20 AB (Rec: 07/09/23 16:21 [email or web address]) Orientation Orientation/Cognition Level of Alertness Alert Orientation Name,Place,Situation Language Function Ability Hard of Hearing Safety Awareness Decreased Safety Awareness Memory Description Short Term Impaired Gross Range of Motion Lower Extremity ROM Assessment Left Impaired Impairments L knee flexion: ~ 50 deg L knee extension: ~ 15 deg less to 0 Strength Lower Extremity Strength Assessment Left Impaired Hip 4-/5 Knee 3+/5 Ankle with L foot drop: 2-/5 Sensation Assessment Comments Sensation Comments pt stated that she has 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 M6 PT-IP Treatment Start: 07/09/23 16:07 Freq: NEEDED Status: Active Protocol: Document 07/09/23 14:20 AB (Rec: 07/09/23 16:21 [email or web address]) Physical Therapy Treatment Exercises Exercises Heel Slides Education Education Provided Precautions,Weight Bearing Status,Post-Op Packet,Safety M7 PT-IP Assessment and Plan Start: 07/09/23 16:07 Freq: NEEDED Status: Active Protocol: Document 07/09/23 14:20 AB (Rec: 07/09/23 16:21 [email or web address]) PT Summary Assessment and Plan Potential Rehabilitation Potential Fair Status of Condition at Evaluation Evolving Summary Impairments Pain,ROM,Strength,Balance, Coordination,Sensation,Tone, Cognition,Bed Mobility, Transfers,Gait,Activity Tolerance Assessment Summary pt is an 82 y/o F who underwent L TKA and is WBAT. pt requiring min A with transfers and ambulation using FWW. caregiver training set up for tomorrow at 9 am. Pt will likely progress during hospital stay. pt plans to go home and spouse to assist. pt needs outpt PT and currently, pt stated that she is not set up for one. Goals Bed Mobility Goal Independent Transfer Goal Independent,Front Wheeled Walker Gait Goal Independent,Front Wheel Walker Gait Distance 150 Other Goals up/down 1 step using FWW SBA Days to Meet Goals 5 Frequency of Treatment Frequency Of Treatment Twice a Day Treatment Plan Physical Therapy Treatment Plan Bed Mobility Training,Transfer Training,Gait Training, Therapeutic Exercise,Balance Retraining,Post Op Education, Discharge Planning,Hot or Cold Pack,Neuromuscular Re-ed, Coordination Retraining,Manual Therapy Other Recommendations and Next Treatment caregiver trainin/21 @ 9 Focus am Weight Bearing Status Weight Bearing Status Weight Bear as Tolerated Allowed Weight Bearing Amount (enter % LLE WBAT or #) (%) Recommendations To Nursing Amount of Assist Needed 1 Person Assist Discharge Recommendations PT Discharge Recommendations Home with Assistance, Outpatient PT Transportation Needs at Discharge Private Vehicle
[2023-07-09] MEDS: ACETAMINOPHEN 325 MG TABLET 650 MG PO ×2 (15:01→21:02)
--- NOTE | 2023-07-09 16:36 | OT.IP.EVAL ---
Current Diagnoses Bilateral primary osteoarthritis of knee (07/09/23) Unilateral primary osteoarthritis, left knee (07/09/23) Other specified joint disorders, unspecified knee (07/09/23) Surgery Performed Operation Date: 07/09/23 07:45 Actual Procedures p Total Knee Arthroplasty(Left) - Sheeba Sanders MD Past Medical History (Last Updated 07/01/23 @ 10:21 by Debbie Tierney RN) Arthritis Back pain Diverticulosis GERD (gastroesophageal reflux disease) History of COVID-19 (08/2022) [place] (hard of hearing) Migraines Numbness Osteoporosis Restless leg syndrome Rosacea Scoliosis Surgical History (Last Updated 07/01/23 @ 10:00 by Debbie Tierney RN) History of back surgery History of partial hysterectomy History of repair of left rotator cuff History of repair of right rotator cuff 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) History of right breast biopsy Hx of arthroscopy of right knee Hx of bilateral cataract extraction Hx of tonsillectomy Occupational Therapy Inpatient Evaluation/Re-Eval M1 PT/OT-IP Prior Functional Status Start: 07/09/23 16:46 Freq: NEEDED Status: Active Protocol: Document 07/09/23 16:00 [facility] (Rec: 07/09/23 17:35 [facility] [id number]) Medical Review Prior Functional Status Medical History Reviewed Yes Communication able to make needs known Mobility and Gait pt stated that she is modified independent with all mobilities and ambulation using a hurrycane but occasionally ambulates without AD Activities of Daily Living and IADL's Pt's would assist with socks. Pt had pain during ADl and IADL needs. Prior Functional Level (Other details) Pt also has right knee pain, back and neck pain as well. Social History Household Members spouse Living Arrangements House Number of Floors (Floors) Two Floors Number of Stairs To Enter/Railing? pt stays on the main level of the house 1 step to enter the house Home Environment Standard Height Toilet,Walk in Shower Home Equipment Front Wheel Walker,Bedside Commode,Hand Held Shower,Long Handled Sponge,Long Handled Shoe Horn,[employer]olar Energy Installation Manager Additional Social History Comment pt has a hurrycane pt stated that she has a recliner that she can sleep on if needed M2 OT-IP Current Condition Start: 07/09/23 16:46 Freq: Status: Active Protocol: Document 07/09/23 16:00 [facility] (Rec: 07/09/23 17:35 [facility] [id number]) Occupational Therapy Current Condition Current Condition Evaluation Date 07/09/23 Treatment Diagnosis S/P L TKA Diagnosis Onset Date 07/09/23 M3 OT- IP Subjective and Pain Start: 07/09/23 16:46 Freq: Status: Active Protocol: Document 07/09/23 16:00 [facility] (Rec: 07/09/23 17:35 [facility] [id number]) OT- Subjective Occupational Therapy Visit Type Type Initial Evaluation Visit Start Time 16:00 Visit Stop Time 16:36 Total Visit Minutes 36 Occupational Therapy Visit Comments Patient Comments Pt agreed to get up to use the BSC. Patient/Caregiver Goals To go home. OT Pain Assessment Pain When Pain Assessed At Rest Pain Present Pain Present Pain Reported Location Left Knee Intensity 5 Scale Used Numeric (0 - 10) M4 OT- IP ADL's Start: 07/09/23 16:46 Freq: Status: Active Protocol: Document 07/09/23 16:00 [facility] (Rec: 07/09/23 17:35 [facility] [id number]) OT [id number] Comments OT Self-Feeding Comments Not at meal time. OT ADL-Grooming Comments OT Grooming Comments Not performed. OT ADL-Oral Care Comments Oral Care Comments Not performed. OT ADL-Dressing General Eval Lower Body Dressing Ability Moderate Assistance Areas Needing Assistance Underpants/Brief Comments OT Dressing Comments Pt needing assist to put the brief up over her hips. Educated pt to hold onto the FWW to with one hand and use the other hand to help with the brief. Educated to don her LLE first and take out last. OT ADL-Toileting General Evaluation Toileting Ability Moderate Assistance Areas Needing Assistance Manage Clothing Comments OT Toileting Comments Pt able to cullen/doff brief over her hips. OT ADL-Bathing Comments OT Bathing Comments Pt states will look into getting a shower chair. M5 OT- IP IADL's Start: 07/09/23 16:46 Freq: Status: Active Protocol: Document 07/09/23 16:00 [facility] (Rec: 07/09/23 17:35 [facility] [id number]) OT-Instrumental Activities of Daily Living Deficits IADL Deficits Identified Deficits Home Safety Awareness Awareness of Need for Assistance at Home Good Awareness Meal Preparation Meal Preparation Caregiver Provides Assist Customer Experience Intern Customer Experience Intern Caregiver Provides Assist M6 OT- IP Functional Cognition Start: 07/09/23 16:46 Freq: Status: Active Protocol: Document 07/09/23 16:00 [facility] (Rec: 07/09/23 17:35 [facility] [id number]) Cognitive Factors Limiting Selfcare Function Cognitive Ability Level of Alertness Alert Patient Orientation Name,Place,Situation Attention Span Ability Capable of Focused Attention, Capable of Sustained Attention Ability to Follow Commands Able to Follow One Step Commands with Increased Time, Able to Follow One Step Commands with Repetition Cognitive Comments Cognitive Assessment Comments Pt easily distracted and needing cues to focus of FWW safety and for ADL's. OT- Vision and Hearing OT- Vision Assessment Vision Assessment Comments Pt wears glasses. M7 OT- IP Mobility and Balance Start: 07/09/23 16:46 Freq: Status: Active Protocol: Document 07/09/23 16:00 [facility] (Rec: 07/09/23 17:35 [facility] [id number]) OT- Bed Mobility Assessment Supine to Sit Supine to Sit Assist Minimal Assistance OT-Transfer Assessment Sit to and From Stand Sit to and from Stand Minimal Assistance Transfers Transfer Ability Contact Guard Assistance Technique Transfer Destination Bed,Bedside Commode,Chair Transfer Technique Stand Step Pivot Devices Transfer Assistive Devices Gait Belt,Front Wheeled Walker Comments Mobility Comments MARCO A to help get her LLE to the edge of the bed and MARCO A to stand , CGA with FWW for transfer to [facility] and then recliner. Pt needing heavy use of her hands on the FWW to move at this time. OT- Balance Assessment Sitting Balance and Reactions Static Sitting Balance Ability Good Dynamic Sitting Balance Ability Fair Standing Balance and Reactions Static Standing Balance Ability Fair Dynamic Standing Balance Ability Poor M8 OT- IP Objective Assessments Start: 07/09/23 16:46 Freq: Status: Active Protocol: Document 07/09/23 16:00 [facility] (Rec: 07/09/23 17:35 [facility] [id number]) OT Gross Range of Motion Upper Extremity Range of Motion Assessment Within Functional Limits OT Strength Upper Extremity Strength Assessment Within Functional Limits M9 OT- IP Assessment and Plan Start: 07/09/23 16:46 Freq: Status: Active Protocol: Document 07/09/23 16:00 [facility] (Rec: 07/09/23 17:35 [facility] [id number]) OT Summary Assessment and Plan Potential Rehabilitation Potential Good Analytic Complexity at Evaluation Low Summary OT Impairments Pain,Strength,Balance, Functional Mobility,Dressing, Toileting,Bathing,Toilet Transfers,Shower Transfers, Activity Tolerance Progress Towards Goals Progressing Toward Goals,Slow Progress due to Pain Assessment Summary Pt low complexity and main barriers are a step, pain , and now needing one person assist for ADl and mobility needs. Pt has a supportive to assist at home . Pt looking to get a sock aid and shower chair to increased her ease and independence for ADl needs. Pt to go home with her when medically stable . Goals Self-Feeding Goal Independent Grooming Goal Independent,Moderate Assistance Dressing Goal Solar Energy Installation Manager,Sock Aid Toileting Goal Independent Bathing Goal Standby Assistance Toilet Transfer Goal Independent Shower Transfer Goal Standby Assistance Days to Meet Goals 5 Frequency of Treatment Frequency Of Treatment Once a Day Treatment Plan OT Treatment Plan ADL Training,Functional Mobility,Patient/Family Education,Discharge Planning Discharge Recommendations OT Discharge Recommendations Home with Assistance, Outpatient PT Home Equipment Needs shower chair, sock aid Transportation Needs at Discharge Private Vehicle
[2023-07-09] MEDS: OXYCODONE IR 10 MG TABLET PO (16:45)
[2023-07-09] MEDS: ASPIRIN EC 81 MG TABLET PO (21:03)
[2023-07-09] MEDS: GABAPENTIN 300 MG CAPSULE PO (21:03)
[2023-07-09] MEDS: PRAMIPEXOLE 0.25 MG TABLET 0.5 MG PO (21:03)
[2023-07-09] MEDS: DOCUSATE 100 MG CAPSULE PO (21:03)
[2023-07-09] MEDS: GABAPENTIN 100 MG CAPSULE PO (21:03)
[2023-07-09] MEDS: hydrOXYzine pamoate 25 MG CAPSULE PO (22:00)
[2023-07-10] MEDS: ACETAMINOPHEN 325 MG TABLET 650 MG PO ×2 (02:19→08:27)
[2023-07-10] MEDS: PANTOPRAZOLE DR 40 MG TABLET PO (06:11)
[2023-07-10 07:27] VITALS: BP 121/57; PULSE 90; RESP 16; TEMP 36.9; O2SAT 94
[2023-07-10] MEDS: GABAPENTIN 100 MG CAPSULE PO (08:26)
[2023-07-10] MEDS: DOCUSATE 100 MG CAPSULE PO (08:26)
[2023-07-10] MEDS: CELECOXIB 100 MG CAPSULE PO (08:27)
[2023-07-10] MEDS: OXYCODONE IR 5 MG TABLET PO (08:30)
[2023-07-10] MEDS: hydrOXYzine pamoate 25 MG CAPSULE PO (08:30)
--- NOTE | 2023-07-10 09:00 | PT.IPTN ---
Current Diagnoses Bilateral primary osteoarthritis of knee (07/09/23) Unilateral primary osteoarthritis, left knee (07/09/23) Other specified joint disorders, unspecified knee (07/09/23) Surgery Performed Operation Date: 07/09/23 07:45 Actual Procedures p Total Knee Arthroplasty(Left) - Sheeba Sanders MD Physical Therapy Treatment Note M2 PT-IP Current Condition Start: 07/09/23 16:07 Freq: NEEDED Status: Active Protocol: Document 07/09/23 14:20 [facility] (Rec: 07/09/23 16:21 AB [id number]) Physical Therapy Current Condition Current Condition Evaluation Date 07/09/23 Treatment Diagnosis s/p L TKA; difficulty in walking Onset Date 07/09/23 M3 PT-IP Subjective Start: 07/09/23 16:07 Freq: NEEDED Status: Active Protocol: Document 07/10/23 10:10 TS (Rec: 07/10/23 10:28 TS [id number]) Subjective Physical Therapy Visit Type Type Treatment Note Visit Start Time 09:00 Visit Stop Time 09:40 Total Visit Minutes 40 Number of ELECTROMATIC TYPIST Visits 1 Physical Therapy Visit Comments Patient Comments Pt found resting in bed, reports pain in L knee, is agreeable to PT. Therapy Pain Assessment Pain When Pain Assessed At Rest Pain Present Pain Present Pain Reported Location Left Knee Pain Behaviors Facial Grimacing,Holding Area, Wincing Pain Management Techniques Apply Cold,Distraction, Modification of Treatment,Re- positioning M4 PT-IP Mobility and Gait Start: 07/09/23 16:07 Freq: NEEDED Status: Active Protocol: Document 07/10/23 10:10 TS (Rec: 07/10/23 10:28 TS [id number]) PT-Bed Mobility Assessment Supine to Sit Supine to Sit Minimal Assistance Scooting Scooting to Edge of Bed Standby Assistance PT-Transfer Assessment Sit to and From Stand Sit to and from Stand Minimal Assistance,1 Person Assistance,Use of Upper Extremities Equipment Transfer Assistive Device Gait Belt,Front Wheeled Walker Orthotic/Prosthetic Devices or Brace: No Comments Mobility Comments Pt found resting in bed, agreeable to PT. Supine to sit Loreta for LLE to EOB, pt uprighted trunk with BUE support with HOB elevated. She scooted to EOB SBA with BUE support. Spouse was instructed in and performed donning of gait belt. Sit to stand Loreta from spouse with FWW, pt has flexed posture. She ambulated ~125'CGA from spouse with FWW and a slow step to gait. She performed step x1 with FWW on platform step with Loreta from spouse. Pt was left back in chair with all needs met, ice applied to knee, RN notified. Gait Assessment Gait Gait Assistance Required: Contact Guard Assist Distance (Feet) 125 Able to Maintain Weight Bearing Status Yes During Gait Assistive Devices Assistive Device Gait Belt,Front Wheeled Walker Orthotic/Prosthetic Devices or Brace: No Gait Deviations General Gait Pattern Antalgic,Decreased Stride Length,Decreased Feet Clearance,Step-to Gait Factors Limiting Gait Function Factors Limiting Gait Function Decreased Activity Tolerance, Decreased Sensation,Decreased Strength,Difficulty Following Directions,Limited Range of Motion,Pain,Poor Balance,Poor Safety Awareness Comments Gait Comments See mobility comments. Stair Climbing Assessment Evaluation Level of Assist On Stairs Minimal Assistance,1 Person Assistance Devices Stair Climbing Assistive Devices Front Wheel Walker Technique/Endurance Stair Climbing Direction Ascend and Descend Stair Climbing Technique Step to Step Number of Steps Climbed 1 PT-Balance Assessment Sitting Balance and Reactions Static Sitting Balance Ability Good Dynamic Sitting Balance Ability Fair Standing Balance and Reactions Static Standing Balance Ability Fair Dynamic Standing Balance Ability Fair Device Used FWW M5 PT-IP Objective Assessments Start: 07/09/23 16:07 Freq: NEEDED Status: Active Protocol: Document 07/09/23 14:20 AB (Rec: 07/09/23 16:21 AB [id number]) Orientation Orientation/Cognition Level of Alertness Alert Orientation Name,Place,Situation Language Function Ability Hard of Hearing Safety Awareness Decreased Safety Awareness Memory Description Short Term Impaired Gross Range of Motion Lower Extremity ROM Assessment Left Impaired Impairments L knee flexion: ~ 50 deg L knee extension: ~ 15 deg less to 0 Strength Lower Extremity Strength Assessment Left Impaired Hip 4-/5 Knee 3+/5 Ankle with L foot drop: 2-/5 Sensation Assessment Comments Sensation Comments pt stated that she has 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 M6 PT-IP Treatment Start: 07/09/23 16:07 Freq: NEEDED Status: Active Protocol: Document 07/10/23 10:10 TS (Rec: 07/10/23 10:28 TS [id number]) Physical Therapy Treatment Education Education Provided Precautions,Weight Bearing Status,Post-Op Packet,Safety M7 PT-IP Assessment and Plan Start: 07/09/23 16:07 Freq: NEEDED Status: Active Protocol: Document 07/10/23 10:10 TS (Rec: 07/10/23 10:28 TS [id number]) PT Summary Assessment and Plan Potential Rehabilitation Potential Fair Summary Impairments Pain,ROM,Strength,Balance, Coordination,Sensation,Tone, Cognition,Bed Mobility, Transfers,Gait,Activity Tolerance Progress Towards Goals Progressing Toward Goals Assessment Summary Job is making progress with her mobility this session. She performed supine to sit Loreta for LLE assistance. She is Loreta for sit to stand with FWW , has fair standing balance with flexed posture. She progressed her gait to ~125' with FWW and slow step to gait CGA from spouse. She progressed to step x1 with FWW Loreta from spouse, had no buckling or LOB. Spouse was instructed in and performed donning of gait belt, bed mobility assistance, sit to stand technique, handplacement on belt for gait and stair training. PT is recommending home with assist and outpatient PT. Goals Bed Mobility Goal Independent Transfer Goal Independent,Front Wheeled Walker Gait Goal Independent,Front Wheel Walker Gait Distance 150 Other Goals up/down 1 step using FWW SBA Days to Meet Goals 5 Frequency of Treatment Frequency Of Treatment Twice a Day Treatment Plan Physical Therapy Treatment Plan Bed Mobility Training,Transfer Training,Gait Training, Therapeutic Exercise,Balance Retraining,Post Op Education, Discharge Planning,Hot or Cold Pack,Neuromuscular Re-ed, Coordination Retraining,Manual Therapy Weight Bearing Status Weight Bearing Status Weight Bear as Tolerated Allowed Weight Bearing Amount (enter % LLE WBAT or #) (%) Recommendations To Nursing Amount of Assist Needed 1 Person Assist Discharge Recommendations PT Discharge Recommendations Home with Assistance, Outpatient PT Transportation Needs at Discharge Private Vehicle
--- NOTE | 2023-07-10 10:08 | PM.DS.1 ---
History of Present Illness History of Present Illness Date Patient Seen: 07/10/23 Time Patient Seen: 10:08 Chief complaint: Left Total Knee Arthroplasty 07/09 Narrative: Operative Date/Time/Diagnoses Date of procedure: 07/09/23 Time of procedure: 08:00 Pre-op diagnosis: Left knee arthritis Post-op diagnosis: same Procedure & Clinicians Procedure: Total knee replacement left CPT code 75572 Same procedure as scheduled: Yes Indications: The patient is a 82 with end-stage huiw-fz-jyka knee arthritis. The patient has a significant left valgus knee arthritis. They have failed conservative treatment with activity modifications, injections, physical therapy and bracing. They has been indicated for total knee replacement. The risks and benefits of the procedure have been discussed with the patient even opportunity to ask questions. The risks of surgery include but are not limited to infection, malunion, nonunion, fracture, loosening, persistence of pain, damage to nerves and blood vessels, need for additional procedures, DVT, PE, cardiopulmonary complications and . The patient expressed a thorough understanding of the risks and benefits of surgery and has elected to proceed. Consent was signed in the office. Surgeon: Sheeba Sanders Evaporative Cooler Installer: Ave Gutierrez Anesthesia Type: General, Peripheral nerve block and Local Operative Notes Findings: End-stage valgus pattern arthritis, tricompartmental arthritis Closure Type: primary Specimen(s): none sent Prosthetic devices, grafts, tissues, transplants, or devices: Lizarraga and nephew journey BCS 2 Femur 4 cobalt chromium Tibia 3 Poly 10 mm Patella 32 by 7.5 Estimated Blood Loss (mL): 100 Tourniquet time (min): 80 Discharge Providers Provider Discharge Date: 07/10/23 Primary care physician: Lawrence Morin MD Consults: 07/09/23 06:00 Consult to Anesthesiology Routine Comment: Consulting Provider: Anesthesiologist Reason for consultation: Regional block for post operative pain control 07/09/23 11:04 Consult to Discharge Planning Routine Comment: Consult to Occupational Therapy Evaluate & Treat Comment: Physician Instructions: Evaluate and treat Consult to Physical Therapy Evaluate & Treat Comment: Physician Instructions: postop TKA protocol Discharge provider: Ave Gutierrez PA-C Summary Hospital Course Discharge Diagnosis: Left knee osteoarthritis, s/p left total knee arthroplasty Hospital Course: Ms Farr's hospital course was unremarkable. On the morning of POD# 1 she was feeling well and willing to go home. She was eating and voiding without difficulty. She was evaluated by PT prior to discharge and they felt she was safe for homegoing with her spouse. Exam Vital Signs (past 8 hours): - 07/10/23 07:27 Temperature 98.4 F Pulse Rate 90 Respiratory Rate 16 Blood Pressure 121/57 L Pulse Oximetry 94 Oxygen Flow Rate 0 Oxygen Delivery Method Nasal Cannula Oxygen Flow Rate 0 Narrative Exam Narrative: 5/5 strength in hip flexors, quadriceps, hamstrings, DF, PF, EHL on left. Sensation to light touch intact throughout LLE. Calf soft, compressible, nontender. ORACIO over Aquacel CDI. 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 Discharge Plan Discharge Plan Patient Disposition: Home Discharge orders & Medications Discharge Orders: Discharge (Order); Ordered 07/10/23 Ordered By: Ave Gutierrez Prescriptions: New oxycodone 5 mg tablet 5 mg PO Q4H PRN (Reason: pain) Qty: 40 0RF Rx Instructions: Postop exempt ondansetron 4 mg tablet,disintegrating 4 mg PO Q8H PRN (Reason: nausea and vomiting) Qty: 7 1RF aspirin 81 mg tablet,delayed release (DR/EC) 81 mg PO BID Qty: 60 0RF naloxone [Narcan] 4 mg/actuation spray,non-aerosol 4 mg intranasal Q3M PRN (Reason: opioid overdose) Qty: 2 0RF Rx Instructions: spray 1 dose into ONE nostril; alternate nostrils w each dose until help arrives Continued pramipexole [Mirapex] 0.5 mg Tablet 0.5 mg PO BEDTIME gabapentin 100 mg Capsule 1 tab PO QD-TID Rx Instructions: 1 tab qam, 1 tab qnoon, 2 tabs at bedtime alendronate [Fosamax] 70 mg Tablet 70 mg PO QWEEK oxycodone 5 mg Tablet 5 mg PO Q4-6H PRN (Reason: Pain, Moderate (4-6)) Qty: 60 0RF acetaminophen 500 mg Tablet 500 mg PO QID No Action gabapentin 300 mg Tablet 300 mg PO BEDTIME celecoxib [Celebrex] 100 mg Capsule 100 mg PO BID omeprazole [Prilosec] 20 mg Capsule,Delayed Release(Dr/Ec) 20 mg PO DAILY Follow up/Referrals: Sheeba Sanders MD [Physician] - As previously scheduled (Follow up with Maciel Rosas PA-C, on 07/20/2023 @ 1:30 pm at [facility] in [place].) Lawrence Morin MD [Primary Care Provider] - Diet/Activity/Treatments Diet: Diet as Tolerated Activity: Weightbear as tolerated, full knee range of motion. Emphasize full extension and maximal flexion--goal0-90 degree range motion by 2 weeks postop Other treatments: Medications: -Aspirin 81mg twice daily x6 weeks to prevent blood clots. -OTC Tylenol 500 mg 1 tablet every 4 hours as needed for pain/fever. Max 6 tablets per day. (take scheduled every 4-6 hours for the first few days to week after schedule to help stay on top of your pain) -Ibuprofen 400 mg 1 tablet every 4 hours as needed for pain/inflammation. Max 2,400 mg per day. (take scheduled for the first few days-week after surgery to stay on top of your pain) (or Celebrex if you take that instead) -Oxycodone 5 mg take 1-2 tablets (5-10mg) every 4 hours as needed for moderate-severe pain (narcotic pain medication). (maximum dose for very severe pain would be 3 pills (15mg) every 3 hours) -Vistaril (hydroxyine) 25mg 1 tab every 4 hours as needed for spasms/pain/nausea. OR -Ondansetron 4mg - 1 tab every 8 hours as needed for nausea -As needed medications: -Ducolax and /or MiraLax as needed for constipation from narcotic pain medications. -Pepcid AC as needed for stomach upset (usually from aspirin or ibuprofen). Dressing/Wound care: -Remove the Oracio wrap 48 hours after surgery. -Keep Aquacell dressing in place until postoperative follow-up office visit. -Okay to shower. Keep wound out of direct water stream. No soaking or submerging until all the scabs fall off (approximately 4-6 weeks). -No lotions, ointments, or scar creams directly to the incision until the wound is healed (4-6 weeks), -Please call the office if dressing becomes wet, soiled, or saturated. Activities: -Weight-bearing as tolerated. Use front wheeled walker, and progress to cane when safe. -Continue with home exercises as directed by your physical therapist. (work on getting your leg. knee fully straight and bending knee as well- motion after knee replacement is very important) -should have outpatient Physical Therapy visits set up to start within 1 week after surgery -Elevate ?toes above the nose if you have significant swelling in your lower leg. (A wedge pillow is easiest.) -Ice your incision as needed for pain/inflammation/swelling. Protect your skin with a folded pillowcase. -Incentive Spirometer (breathing device from hospital): 5-10xs every hour while awake for the first 1-2 weeks. Follow-up: -Follow-up with your surgeon or PA in the office in 10-14 days after surgery. -Follow-up with your surgeon 6 weeks postoperatively. Contact the office if you have any of the following: ? Painful swelling or numbness ? Unrelenting pain ? Fever (over 101?- it is normal to have a low grade fever for the first day or two following surgery) or chills ? Redness around the incisions ? Color changes ? Continuous bleeding or drainage from the incision (a small amount is expected) ? Excessive nausea or vomiting ? Difficulty breathing If you have an emergency that requires immediate attention such as shortness of breath or chest pain, call 911 or proceed to the nearest emergency room. [facility]: [phone] Pain Medications: It is the policy of [facility] that narcotic medications will only be refilled during office hours. Additionally, due to the alarming rate of narcotic pain medication abuse/dependence, it has become necessary for physician practices to closely manage patient use of prescription narcotic pain relievers, such as Vicodin (Cactus), Percocet, and Oxycodone products. Narcotic pain management in the postoperative period may not exceed 6 weeks. If narcotic pain management is required beyond 90 days, then a referral to a Chronic Pain Specialist will be made. If a request for a medication prescription of refill has been made, the physician must review your chart prior to authorizing the request. Please be patient with office staff. If you call during patient hours, your call may not be returned until the end of the day. Skin/Wound/Dressing Care Report to your healthcare provider any signs of infection, such as:: chills, fever, night sweats, increased pain, unusual drainage and unusual redness Visit Report/Discharge Packet Instructions: DI for Knee Replacement, DI for Prescription Opioid Use Stand Alone Forms: Patient Portal/API, Surgery Discharge Discharge Data Primary Care Provider: Lawrence Morin Attending Provider: Sheeba Sanders VTE Deep Vein Thrombosis/Pulmonary Embolism Present on Admission: No
[2023-07-10] MEDS: OXYCODONE IR 10 MG TABLET PO (13:56)
--- NOTE | 2023-07-10 15:37 | CM.DANOTE ---
Brief DCP Assessment Note: Patient is a 82yo F following planned left knee surgery with Dr. Sanders 07.09.23. PCP Lawrence Puentes Payer Medicare and [facility] APPLIQUER ZIGZAG reviewed EMR. PT/OT rec home with assistance. Per PT note, patient home with spouse to assist. APPLIQUER ZIGZAG unable to meet with patient due to triaging needs. Appears to have d/c home with family assistance. No needs identified. Plan: patient d/c home with family assistance. No needs identified at this time. CM team will continue to follow as needed. IRINEO Treviño Discharge Planning/Care Management Advanced directive, confirm from FAMILY Start: 07/09/23 12:52 Freq: Q24H Status: Discharge Protocol: Document 07/09/23 12:52 MM (Rec: 07/09/23 13:32 MM [id number]) Advance Directive, confirm on record Time 13:32 Person contacted pt and spouse Copy received No CM Discharge Assessment Start: 07/10/23 15:34 Freq: Status: Active Protocol: Document 07/10/23 15:34 SL (Rec: 07/10/23 15:36 SL [id number]) Discharge Planning Assessment Assigned Software Tools Developer IRINEO Jimenez DPOA/Assigned Designee Name Luis Daniel Gaviria Advance Directives? Yes Advance Directives on File No History Provided By Medical Record Prior Living Arrangements House Household Members spouse Independent with ADL's Yes Is patient alert and oriented? Yes DME Already Rented / Owned Cane Discharge Plan Home Transportation Arrangement spouse to pickle cutter today: PT and OT plan to work with spouse and patient prior to d/ c home today. Patient to have outpatient PT per MD request. Referrals Initiated None needed Whiteboard Updated in Patient Room with No name and ext. # of Software Tools Developer Review Status In Process Next Review Type Continued Stay Review Pre-Anesthesia Assessment Start: 07/01/23 09:48 Freq: Status: Discharge Protocol: Document 07/01/23 09:50 CAB (Rec: 07/01/23 10:00 CAB [id number]) Pre-Anesthesia Assessment Patient Information Reviewed Via Phone Assessment Diagnostic Results BMP/CMP,CBC,EKG Comment Outside labs scanned, EKG @ [facility] Primary Care Provider Lawrence Morin Seen Specialist in Last 12 Months Yes Specialist Seen Orthopedist Primary Language Bahamian Preferred Language Bahamian Vp Customer Development Required No Height 152.4 cm Weight 53.524 kg Body Mass Index (BMI) 23.0 Hearing Ability Hearing Impaired,Use of Hearing Aid Visual Assist Contacts,Glasses Dentition Type Teeth, Missing Barriers to Learning Auditory Hx Anesthesia Reactions No Hx Family Anesthesia Reaction No Hx Malignant Hyperthermia No Hx Blood Transfusions Yes Hx Blood Transfusion Reaction No Anesthesia Review Requested No Marine Equipment Sales Engineer No alcohol intake current alcohol intake frequency a few times a month Smoking Status Never smoker Substance Use Type does not use Pain Present Pain Reported Musculoskeletal Symptoms Abnormal Gait,Back Pain, Difficulty Walking,Joint Pain, Limited Range of Motion History of Falling (Recent or History of Yes ) Patient is completely paralyzed or No completely immobile Mental Status Oriented to own ability Is patient on oxygen? No Does patient have WOODRUFF/SOB Yes: Coming up the hill from mailbox r/t deconditioning per pt Hx Sleep Apnea No Currently Taking a Beta Xochitl No Can You Climb a Flight of Stairs Without No SOB Hx Chest Pain No Hx SOB Yes: Coming up the hill from mailbox r/t decondition per pt Hx Syncope or Dizziness No Anti-Coagulant Therapy No Has a Mason Tender Restoration Labor No Cardiac Testing No Hx Pacemaker/ICD No Pacemaker Rep Required? No Diet Type At Home Regular Dysphagia No Gastrointestinal Symptoms Reflux Genitourinary Symptoms Dribbling Chronic UTI No Urinary Catheter Present No Hx Urinary Self Catheterization No Diabetes No HgbA1C 5.5 Date 06/04/23 Patient No Lactating No Hx Drug Resistant Organism No Presence of External or Internal Medical Yes: Right shoulder, bilat eye Devices IOLs, lumbar hardware Received a COVID vaccine? Yes Received all doses? Yes Marital Status Lives With spouse Current Living Arrangements House Number of Floors (Floors) Two Floors Number of Stairs To Enter/Railing? None Support System Friend(s),Sibling(s),Spouse Does the Patient Have Assistance After Yes Surgery Patient Discharge Plan Description Return Home Comment Pt advised overnight length of stay per surgeon Feels Safe in Current Environment Yes Been Physically Hurt or Threatened By a No Person in Current Environment Do you have thoughts of harming yourself None or others? Are you currently considering suicide? No Do you have a plan to hurt yourself or No Plan others? Do You Have Any Spiritual Beliefs That No May Affect Your HC Choices? Do You Have Any Cultural Practices That No May Affect Your HC Choices? Who Can We Speak to About Patient's Care Family, friends Identifying Code for Release of Patient Declines to issue Information Health Care Proxy/Next of Kin Edilberto Farr () Guerline ( daughter) Health Care Proxy Phone Number Edilberto:[phone] or [phone] [place]: [phone] Emergency Contact Name Edilberto Farr () Guerline ( daughter) Emergency Contact Phone Number Edilberto:[phone] or [phone] [place]: [phone] Advance Directives? Yes Advance Directives on File No Power of Drier Transfer Car Operator No PAC Instructions Do not shave/clip surgical site,Durable medical equipment ,Medications to take/avoid, Nasal antibiotic,No ETOH/ petroleum product on skin DOS, NPO,Pre-surgical wash,Sensory aids,Sturdy shoes/comfortable clothes,Do not bring valuables and remove jewelry
--- NOTE | 2023-07-22 13:32 | PM.EVENT ---
Event Note Date Patient Seen: 07/09/23 Time Patient Seen: 07:44 Event Note (Rapid Response, Code, or fall): Late entry: 2mg Midazolam given in OR on 07/09/[address] Rosario
== END 2023-07-10 14:00 | disposition home or self-care (01) ==
LOC: OR 06:28 → AC 06:29
PROVIDERS: Family Provider Family Medicine; PCP Family Medicine; Referring Provider Orthopaedic Surgery Foot and Ankle Surgery; Visit Provider Orthopaedic Surgery Foot and Ankle Surgery
PROC: 0SRD0JZ Replacement of Left Knee Joint with Synthetic Substitute, Open Approach (ICD-10-PCS; CPT 27447; principal; 2023-07-09 07:45)
DX: M17.12 Unilateral primary osteoarthritis, left knee (principal); M25.762 Osteophyte, left knee
CPT/HCPCS: 27447; 64450; 73560; 97116; 97162; 97165; 97530; 97535; C1776; C9290; J0171; J0690; J1100; J1170; J2250; J2405; J2704; J3010

== ENCOUNTER → 2023-11-12 13:21 | Outpatient (CLI) | payer MEDICARE, OTHER, SELFPAY ==
[2023-07-09 11:04] VITALS: BMI 23.0
--- NOTE | 2023-11-12 13:23 | DI.MRI.S_ITS ---
PROCEDURE: MR CERVICAL SPINE WO CON INDICATIONS: Cervicalgia TECHNIQUE: Noncontrast sagittal T1 spin echo and T2 fast spin echo, sagittal STIR, foraminal oblique sagittal T2 fast spin echo, and axial gradient echo or T2 fast spin echo through the cervical spine. COMPARISON: [facility], CR, XR CERVICAL SPINE FLEXION EXTENSION 3 VIEWS, 10/14/2023, 15:50. FINDINGS: Image quality: Diagnostic Alignment: There is exaggerated lordosis at the craniocervical junction. There is straightening of normal cervical lordosis in the mid and lower sections. Trace anterolisthesis of C4 on C5 and trace retrolisthesis of C6 on C7. Trace anterolisthesis of C7 on T1. Marrow: No acute appearing fracture. Possibly traumatic deformities or high-grade degenerative changes involving the vertebral bodies of C5 and C6. Multilevel disc space height loss and desiccation Likely chronic malalignment and high-grade degenerative changes of C1 and C2. Cord: Possible mild myelopathic cord signal is seen in the upper cervical spine and craniocervical junction. Soft tissues: No pathologic prevertebral soft tissue swelling. Possible upper lung scarring, consider correlation with chest CT. Specific levels: C0- C1: There is moderate severe narrowing at the craniocervical junction, the location of the foramen magnum C1-C2: Moderate central narrowing. C2-C3: Adat-in-iqjgdaai central narrowing. C3-C4: Posterior disc osteophyte complex. Moderate bilateral neural foraminal narrowing. C4-C5: There is uncovering of the disc at this level. Ligamentum hypertrophy. Uncovertebral and facet arthropathy. Pmvz-jc-izqoxnit central narrowing. Moderate to severe right and yphi-xa-ygofgphc left neural foraminal narrowing. C5-C6: Ligamentum hypertrophy. Posterior disc osteophyte complex. Uncovertebral and facet arthropathy. Moderate bilateral foraminal narrowing. C6-C7: Posterior disc osteophyte complex. Ligamentum hypertrophy. Uncovertebral and facet arthropathy. Mild central narrowing. Moderate right and ucyc-fg-zfcsnnjb left neural foraminal narrowing. C7-T1: Mild disc uncovering. Ligamentum hypertrophy. Mild central narrowing. Oukw-uc-tgztjlvt bilateral neural foraminal narrowing. 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 Overall moderate spondylotic changes elsewhere as described above, particularly in the upper and mid cervical spine, with areas of likely significant stenosis. Malalignment and high-grade degenerative changes of C1 on C2, unlikely to be acute given lack of surrounding edema. Possibly post traumatic deformities of C5 and C6 also seen. Possible thick scarring seen at the lung apices, consider chest CT correlation Dictated by: Kane Johnson M.D. on 11/12/2023 at 19:41 Approved by: Kane Johnson M.D. on 11/12/2023 at 19:49
== END ==
PROVIDERS: Family Provider Family Medicine; PCP Family Medicine; Referring Provider Physical Medicine & Rehabilitation; Visit Provider Physical Medicine & Rehabilitation
DX: M48.01 Spinal stenosis, occipito-atlanto-axial region (principal); M48.02 Spinal stenosis, cervical region; M48.03 Spinal stenosis, cervicothoracic region; M47.812 Spondylosis without myelopathy or radiculopathy, cervical region; M47.813 Spondylosis without myelopathy or radiculopathy, cervicothoracic region
CPT/HCPCS: 72141

== ENCOUNTER 2023-12-01 09:11 | Day surgery (SDC) | payer MEDICARE, OTHER, SELFPAY ==
[2023-07-09 11:04] VITALS: BMI 23.0
[2023-11-25 13:45] VITALS: BMI 24.4
[2023-12-01] VITALS (20 sets, daily range): BP systolic 106–165; BP diastolic 56–94; PULSE 72–87; RESP 14–20; TEMP 36.2–37.1; O2SAT 93–100; BMI 24.4; BMI 26.0
--- NOTE | 2023-12-01 06:00 | DI.RAD.S_ITS ---
PROCEDURE: XR KNEE RT 1TO2V INDICATIONS: POST OP RIGHT KNEE TECHNIQUE: 2 view(s) of the knee acquired. COMPARISON: [facility], , XR KNEE RT 1TO2V, 07/09/2023, 10:36. FINDINGS: Bones: A knee arthroplasty is in place. Hardware is in expected position. Patellar resurfacing. Soft tissues: Is soft tissue postsurgical changes. IMPRESSION: Postsurgical changes of right knee arthroplasty. Dictated by: Kane Johnson M.D. on 12/01/2023 at 15:33 Approved by: Kane Johnson M.D. on 12/01/2023 at 15:34
[2023-12-01] MEDS: LACTATED RINGERS 1,000 ML 42 ML IV ×2 (09:53→12:45)
[2023-12-01] MEDS: ACETAMINOPHEN 325 MG TABLET 975 MG PO (09:57)
[2023-12-01] MEDS: CELECOXIB 200 MG CAPSULE PO (10:00)
--- NOTE | 2023-12-01 10:04 | SUR.OPER ---
Supine on padded OR bed. Pillow under head, arms secured on padded armboards <90 degree abduction. Safety belt across torso. Non-operative leg secured with tape over blanket over lower leg. Operative leg secured in DeMayo/Fer/Nathe positioner. Foam padded brace at thigh of operative leg.
--- NOTE | 2023-12-01 10:52 | PM.PREOP ---
Pre-operative Note Interval Note History & Physical reviewed/Exam performed by Physician: Yes Changes to H&P: No
--- NOTE | 2023-12-01 11:31 | SUR.PREOP ---
Block start time [1122] . Monitoring initiated and maintained throughout procedure. Oxygen and medications given per anesthesiologist instructions. Patient remained stable throughout procedure, no adverse reactions noted. Block end time [1128].
--- NOTE | 2023-12-01 11:35 | SUR.PREOP ---
Provider, WELDING PANTOGRAPH MACHINE OPERATOR, aware/reviewed ECG strip taken during pre-op this am. KB
[2023-12-01] MEDS: CEFAZOLIN 2 GM/100 ML PREMIX 100 ML IV ×2 (11:49→20:22)
[2023-12-01] MEDS: TRANEXAMIC ACID 1,000 MG VIAL 1000 MG INJ (12:00)
[2023-12-01] MEDS: BUPIVACAINE 0.25% (PF) 60 ML, EPINEPHrine 0.3 MG INJ (12:16)
[2023-12-01] MEDS: BUPIVACAINE LIPOSOME 266 MG/20 ML VIAL INJ (12:17)
--- NOTE | 2023-12-01 14:04 | P.OP_ITS ---
Operative Date/Time/Diagnoses Date of procedure: 12/01/23 Time of procedure: 12:00 Pre-op diagnosis: Right knee arthritis M17.11 Post-op diagnosis: same Procedure & Clinicians Procedure: Right total knee arthroplasty CPT code 67072 Robotic assisted surgery [id number] Imageless navigation [id number] Same procedure as scheduled: Yes Indications: The patient is a 83 year old female with end-stage [id number] knee arthritis. The patient has valgus knee arthritis. They have failed conservative treatment with activity modifications, injections, physical therapy and bracing. They has been indicated for total knee replacement. The risks and benefits of the procedure have been discussed with the patient even opportunity to ask questions. The risks of surgery include but are not limited to infection, malunion, nonunion, fracture, loosening, persistence of pain, damage to nerves and blood vessels, need for additional procedures, DVT, PE, cardiopulmonary complications and . The patient expressed a thorough understanding of the risks and benefits of surgery and has elected to proceed. Consent was signed in the office. During the operation the services of physician surgical services director were medically indicated and necessary to provide the exposure of the operative site for the surgical procedure and to maintain the limb in a proper position to carry out the procedure safely and efficiently. Without a qualified promotions assistant sales marketing being present this would extend the operative procedure and would have made the procedure more technically difficult to perform. The surgical services director was medically necessary for the proper positioning, retraction and manipulation of the limb, proper exposure, and manipulation of the tissue for implantation implants and closure. Surgeon: Sheeba Sanders Domestic Helper: Nolan Vila Anesthesia Type: General, Peripheral nerve block and Local Operative Notes Findings: Tricompartmental arthritis, Valgus knee arthritis, right. Eburnated bone lateral femoral condyle and lateral tibial plateau. Closure Type: primary Specimen(s): none sent Prosthetic devices, grafts, tissues, transplants, or devices: Lizarraga and nephew journey 2 BCS Femur cobalt chromium size 4 Tibia size 3 right Poly 10 mm Patella 32 x 7.5 mm Estimated Blood Loss (mL): 100 Blood products transfused: none Tourniquet time (min): 85 Procedure in detail: Patient was seen in the preoperative area where the patient and site of surgery were identified in the operative knee was marked informed consent confirmed. This was the right knee. Patient received the appropriate preoperative antibiotics this was 2 g of Ancef. And other preoperative medications and the patient received a preoperative nerve block by the anesthesia team for regional pain control. Was taken to the operating room placed on operating table in the supine position. General anesthetic was administered. Spinal was attempted but not successful. The operative extremity was then prepped and draped in the standard sterile fashion with a nonsterile tourniquet high on the thigh. Patient was placed on the green foam bolsters. A lateral post was placed at the level of the proximal thigh /trochanter area as a lateral post. Formal time-out procedure was performed confirming the patient's side and site of surgery and administration of appropriate preoperative antibiotics and implants were in the room accounted for. All were in agreement. Patient received a preoperative dose of tranexamic acid and then a 2nd dose at tourniquet release Patient was prepped and draped in the standard sterile fashion and the foot was placed into the leg powell. This was taken into high flexion and the incision was marked out over the anterior knee to the level of the medial tubercle tubercle. The Esmarch was then used for exsanguination and the tourniquet was inflated to 250 mmHg. Was made through the skin and subcutaneous tissue in high flexion this was then brought down into 30? of flexion for the medial parapatellar arthrotomy. A marker pen was used to ajith the arthrotomy site for later repair. Joint fluid was evacuated. The anterior osteophytes and soft tissues were removed. A very minimal medial release was initially made along the medial proximal tibia with Bovie because the patient has a valgus deformity.. The patella was 1st cut using the saw sized and prepped and then subluxed throughout the case and protected. The leg was then taken into extension and the patella was everted and the patella was cut to accommodate the patellar button. This was sized to a 32 mm button for a 7.5 mm thickness to recreate the original dimensions of the patella. Care was taken to make sure the remaining patella was at minimum 13 mm. Patella Poly was removed and the protector replaced and the patella was subluxed and the knee was taken back up into flexion and attention was returned to the femur. Then the rotational landmarks of Whitesides line and the trans epicondylar axis were marked on the femur with electrocautery. ACL and PCL were released. Then the Cori robotic pins were placed into the femur and tibia and the trackers were set up. Landmarks were established and the robotic planning was commenced. Plan was developed and improved and adjusted as necessary to create a balanced knee. There was still some tightness in extension laterally this was accepted due to a planned additional ITB band pie crusting once the trials were in. The plan took the patient from a preoperative 8? of valgus to 0? of valgus. And balanced the knee within 1-3 mm. 3? of external rotation was placed. Plan was satisfactory the bur was used to remove the distal femur then the 5 in 1 cutting block was applied complete the femur cuts. Attention was then turned to the tibia and the tibial resection was made in accordance with the robotic planning. The trials were placed. And the femoral notch was cut a standard fashion using Reamer then slap hammer. The knee was trialed and the checked. Knee was balanced in flexion extension. Range of motion 0-135 degrees was obtained. The rotation femoral trial was marked Bovie on the bone and checked with a long roselia. The tibia was then finished with a drill and flange cut and then The trial implants were removed. Then in extension the posterior capsule was injected with a mixture of 40 mL of 0.25% Marcaine and 20 mL of Exparel care to avoid excessive injection posterior laterally. The remainder of this was saved for the capsule and subcutaneous tissue and placed during cement curing. The wound and bone was irrigated with pulsatile lavage. This was then dried with a sponge. The components were verified and opened and the cement was mixed. Cement was applied to the components and then to the bone then the tibia was cemented in place 1st followed by the femur then the patella. Excess cement was removed. With care looking around the back of the knee. Remainder of the injection was injected around the capsule. trial poly was placed back in the leg was placed into extension for the patellar cementing. After this was cured approximately 15 minutes later and the dilute Betadine solution was placed for at least 3 minutes in the wound this was then irrigated out and the final poly was placed. This was a 10 mm poly. The tourniquet was released hemostasis was achieved. Final 1g of tranexamic acid was given IV at the time of tourniquet release. The capsule was closed with 1. Ethibond suture. Followed by a running Quill stitch. Subcutaneous layer was closed with 3-0 Vicryl suture. Skin was closed with a running V lock suture Stratafix Monocryl type suture and Dermabond. An berkley dressing was placed . An Oracio wrap was applied. Anesthetic was terminated the patient was woken from anesthesia and taken to recovery room in good condition. There no immediate complications from this procedure. The patient will be maintained on a standard total knee replacement protocol with weight-bearing as tolerated. Complications: none Post-operative Condition: stable Disposition: PACU Plan for aftercare: Weightbear as tolerated, immediate range of motion. We will do aspirin 81 mg b.i.d. for DVT prophylaxis x6 weeks postop. Patient is a chronic pain management patient managed by [facility]. We will plan to get postoperative pain medications from [facility] who provides her chronic medications. Her chronic level is 5 mg of oxycodone 4 times a day. She will avoid anti-inflammatories due to gastric upset. She may take Tylenol. She will be admitted to the hospital and discharged when stable and safe from home. Follow up in Orthopedic Clinic in 2 weeks for wound check.
[2023-12-01] MEDS: OXYCODONE IR 5 MG TABLET PO (14:39)
[2023-12-01] MEDS: hydrOXYzine 50 MG/ML INJ 25 MG IM ×2 (14:58→20:49)
[2023-12-01] MEDS: ACETAMINOPHEN 325 MG TABLET 650 MG PO ×2 (16:14→20:21)
[2023-12-01] MEDS: GABAPENTIN 300 MG CAPSULE PO ×2 (16:15→20:22)
--- NOTE | 2023-12-01 16:44 | PC.NURSE ---
Pt to room 205 via bed from PACU. Pt is awake, alert, and oriented. Pt voided per bedpan. SCD's on and running. IVF infused as ordered. Pt bed alarm on for safety. Pt agrees to call for assistance as needed and to not get up without assistance from staff. Pt given fresh coffee, water, and a snack. Pt oriented to room, call light, bed controls, and tv controls.
[2023-12-01] MEDS: LACTATED RINGERS 1,000 ML 100 ML IV (20:07)
[2023-12-01] MEDS: ASPIRIN EC 81 MG TABLET PO (20:21)
[2023-12-01] MEDS: DOCUSATE 100 MG CAPSULE PO (20:21)
[2023-12-01] MEDS: OXYCODONE IR 10 MG TABLET PO (20:22)
[2023-12-02] MEDS: OXYCODONE IR 5 MG TABLET PO ×3 (01:51→16:52)
[2023-12-02 04:00] VITALS: BP 155/69; PULSE 97; RESP 20; TEMP 36.8; O2SAT 96
[2023-12-02] MEDS: PRAMIPEXOLE 0.25 MG TABLET 0.5 MG PO (04:21)
[2023-12-02] MEDS: ACETAMINOPHEN 325 MG TABLET 650 MG PO ×3 (04:21→16:51)
[2023-12-02] MEDS: CEFAZOLIN 2 GM/100 ML PREMIX 100 ML IV (04:21)
[2023-12-02] MEDS: hydrOXYzine 50 MG/ML INJ 25 MG IM (04:22)
[2023-12-02] MEDS: diazePAM 10 MG/2 ML SYRINGE 2 MG IV (04:52)
[2023-12-02 05:30] LABS: Hematocrit 29.9 % (36-46); Hemoglobin 9.8 g/dL (12.0-16.0)
[2023-12-02] MEDS: HYDROMORPHONE 0.5 MG INJ IV (06:32)
[2023-12-02 07:00] VITALS: BP 121/51; PULSE 75; RESP 18; TEMP 36.4; O2SAT 94
--- NOTE | 2023-12-02 07:02 | PC.NURSE ---
Patient began to spasm at start of shift. PO oxycodone, IM vistaril, PO Mirapex had no effect. Refusing dilaudid. Contacted toy trains and accessories salesperson da Palma order for 2 mg IVP valium. Moderate relief in spasms for approx 30 minutes, returned in full force. Patient entire body contorting. This RN convinced pt to try IVP dilaudid 0.5 mg, which provided relief of spasms. Will continue to monitor.
[2023-12-02 08:00] VITALS: BP 130/64; PULSE 68; RESP 16; TEMP 36.5; O2SAT 97
[2023-12-02 08:29] LABS: BUN Creatinine Ratio 29.1 (6-22); Blood Urea Nitrogen 16 mg/dL (7-17); Calcium 8.9 mg/dL (8.4-10.2); Carbon Dioxide 26 mmol/L (22-32); Chloride 105 mmol/L (98-107); Estimated Glomerular Filt Rate > 60 mL/min (>60); Glucose 95 mg/dL (80-110); HEMOLYSIS < 15 (0-50); Potassium 4.1 mmol/L (3.4-5.1); Sodium 134 mmol/L (137-145)
[2023-12-02] MEDS: GABAPENTIN 300 MG CAPSULE PO ×3 (08:29→16:51)
[2023-12-02] MEDS: ASPIRIN EC 81 MG TABLET PO (08:29)
[2023-12-02] MEDS: DOCUSATE 100 MG CAPSULE PO (08:29)
--- NOTE | 2023-12-02 08:55 | CM.DANOTE ---
Initial DCP Assessment Note Pt is an 83 yo female, resident of [place], now POD#1 from Rt knee surgery by Dr Sanders PCP: Lawrence Morin Payer: [facility]/ [facility] Reviewed chart, met w/patient this morning, introduced self and role. Patient lives w/spouse, indp in all aspects. Spouse has suffered numerous strokes, per patient, although maintains his independence. Spouse has residual poor emergency room specialist on one hand and a slight shuffle. Patient plans to discharge home w/assist from her , as she did in June after her right knee surgery. Patient's grandson lives in [facility] and can make himself available to assist as needed. Spouse Edilberto:[phone] or [phone] Daughter Guerline: [phone] Therapy pending this morning, PT/OT. No barriers identified at this time to patient's safe discharge home w/family to assist; close outpatient f/u. Therapy recommendations pending. CM team will plan to follow closely in case any DC needs or concerns arise. IRINEO Merino Discharge Planning/Care Management CM Discharge Assessment Start: 12/02/23 08:48 Freq: Status: Active Protocol: Document 12/02/23 08:48 CARROLL (Rec: 12/02/23 08:51 CARROLL [id number]) Discharge Planning Assessment Assigned Global Transportation Manager IRINEO Marcano DPOA/Assigned Designee Name Luis Daniel Farr spouse Contact Information [phone] Advance Directives? Yes Advance Directives on File No History Provided By Patient,Medical Record Prior Living Arrangements House Household Members spouse Type of transporation used prior to Drives own vehicle admit Independent with ADL's Yes Is patient alert and oriented? Yes Patient/Family Preference OP PT Therapy Barriers to Discharge No Comment Pending recs from therapy team Discharge Plan Home Transportation Arrangement spouse Referrals Initiated None needed
--- NOTE | 2023-12-02 09:28 | OT.IP.EVAL ---
Current Diagnoses Unilateral primary osteoarthritis, right knee (12/01/23) Nondisplaced fracture of body of scapula, right shoulder, initial encounter for closed fracture (12/01/23) Aftercare following joint replacement surgery (12/01/23) Presence of left artificial knee joint (12/01/23) Surgery Performed Operation Date: 12/01/23 10:45 Actual Procedures p Total Knee Arthroplasty - Robot(Right) - Sheeba Sanders MD Past Medical History (Last Updated 07/01/23 @ 10:21 by Debbie Tierney RN) Arthritis Back pain Diverticulosis GERD (gastroesophageal reflux disease) History of COVID-19 (08/2022) [place] (hard of hearing) Migraines Numbness Osteoporosis Restless leg syndrome Rosacea Scoliosis Surgical History (Last Updated 11/25/23 @ 13:52 by Debbie Tierney RN) History of back surgery History of partial hysterectomy History of repair of left rotator cuff History of repair of right rotator cuff 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) History of right breast biopsy 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) Hx of arthroscopy of right knee Hx of bilateral cataract extraction Hx of tonsillectomy Occupational Therapy Inpatient Evaluation/Re-Eval M1 PT/OT-IP Prior Functional Status Start: 12/02/23 08:43 Freq: NEEDED Status: Active Protocol: Document 12/02/23 13:25 CGR (Rec: 12/02/23 13:39 CGR [id number]) Medical Review Prior Functional Status Medical History Reviewed Yes Diet/Fluid Consistency Regular Communication Pt is an effective verbal communicator. Mobility and Gait Mod I with RW and assist for some things like donning and doffing socks Activities of Daily Living and IADL's Pt needed some assist with LB dressing. Social History Household Members spouse Living Arrangements House Number of Floors (Floors) Two Floors Number of Stairs To Enter/Railing? Flat to get in and does not have to go to basement, does not have to do stairs Home Environment Standard Height Toilet,High Toilet,Walk in Shower Home Equipment Front Wheel Walker,Four Wheel Walker,Straight Cane,Raised Toilet Seat Without Armrests, Grab Bars Near Toilet Employment Status Retired M2 OT-IP Current Condition Start: 12/02/23 13:25 Freq: Status: Active Protocol: Document 12/02/23 13:25 CGR (Rec: 12/02/23 13:39 CGR [id number]) Occupational Therapy Current Condition Current Condition Evaluation Date 12/02/23 Treatment Diagnosis L TKA Diagnosis Onset Date 12/01/23 Weight Bearing Status Weight Bearing Status Weight Bear as Tolerated M3 OT- IP Subjective and Pain Start: 12/02/23 13:25 Freq: Status: Active Protocol: Document 12/02/23 13:25 CGR (Rec: 12/02/23 13:39 CGR [id number]) OT- Subjective Occupational Therapy Visit Type Type Initial Evaluation Visit Start Time 09:07 Visit Stop Time 09:28 Notes Partial co-treat with P.T. for initial eval OT Pain Assessment Pain When Pain Assessed During Mobility Pain Present Pain Present Pain Reported Location Right knee Intensity 6 Scale Used Numeric (0 - 10) Management Techniques Modification of Treatment,Re- positioning,Timing of Activity with Medications M4 OT- IP ADL's Start: 12/02/23 13:25 Freq: Status: Active Protocol: Document 12/02/23 13:25 CGR (Rec: 12/02/23 13:39 CGR [id number]) OT [id number] General Evaluation Self-Feeding Ability Independent Comments OT Self-Feeding Comments attempted to see earlier in AM and pt was finishing breakfast. OT ADL-Grooming Comments OT Grooming Comments not peformed OT ADL-Oral Care Comments Oral Care Comments not performed OT ADL-Dressing General Eval Lower Body Dressing Ability Total Assistance Areas Needing Assistance Socks Comments OT Dressing Comments Pt states that her already assists her with LB dressing and he will continue to help. OT ADL-Toileting General Evaluation Toileting Ability Standby Assistance Comments OT Toileting Comments Pt urinated seated on toielt at end of session M5 OT- IP IADL's Start: 12/02/23 13:25 Freq: Status: Active Protocol: Document 12/02/23 13:25 CGR (Rec: 12/02/23 13:39 CGR [id number]) OT-Instrumental Activities of Daily Living Deficits IADL Deficits Identified No Deficits Home Safety Awareness Awareness of Need for Assistance at Home Good Awareness Ability to Problem Solve Emergency Able to Problem Solve Situations Medication Management Medication Management No Deficits Identified Money Management Money Management No Deficits Identified Meal Preparation Meal Preparation Caregiver Provides Assist Craft Superintendent Craft Superintendent Caregiver Provides Assist Driving Driving Comments Pt states her can drive. M6 OT- IP Functional Cognition Start: 12/02/23 13:25 Freq: Status: Active Protocol: Document 12/02/23 13:25 CGR (Rec: 12/02/23 13:39 CGR [id number]) Cognitive Factors Limiting Selfcare Function Cognitive Ability Level of Alertness Alert Patient Orientation Name,Age,Birthday,Month,Date, Year,Day of Week,Place, Situation Ability to Follow Commands Able to Follow One Step Commands with Increased Time, Able to Follow One Step Commands with Repetition OT- Vision and Hearing OT- Hearing Assessment OT- Hearing Assessment Hearing Impaired,Use of Hearing Aids OT- Vision Assessment Visual Acuity Glasses All The Time Visual Attentiveness WFL Occular Pursuits WFL Visual Convergence WFL Vision Assessment Comments Pt wears trifocals M7 OT- IP Mobility and Balance Start: 12/02/23 13:25 Freq: Status: Active Protocol: Document 12/02/23 13:25 CGR (Rec: 12/02/23 13:39 CGR [id number]) OT- Bed Mobility Assessment Supine to Sit Supine to Sit Assist Standby Assistance Sit to Supine Sit to Supine Assist Standby Assistance Scooting Scooting to Edge of Bed Standby Assistance OT-Transfer Assessment Sit to and From Stand Sit to and from Stand Standby Assistance Transfers Transfer Ability Standby Assistance Technique Transfer Destination Bed,Chair,Toilet Transfer Technique Stand Step Pivot Devices Transfer Assistive Devices Gait Belt,Front Wheeled Walker Comments Mobility Comments Pt ambulated around the room with SBA but needed extra time . She used a gait belt to help with getting her RLE up into the bed but states that he can help her with that in the future. OT- Gait Assessment Gait Gait Assistance Required: Standby Assistance Assistive Devices Assistive Device Gait Belt,Front Wheeled Walker Comments Gait Ability Comments mobility in the room OT- Balance Assessment Sitting Balance and Reactions Static Sitting Balance Ability Good Dynamic Sitting Balance Ability Good M8 OT- IP Objective Assessments Start: 12/02/23 13:25 Freq: Status: Active Protocol: Document 12/02/23 13:25 CGR (Rec: 12/02/23 13:39 CGR [id number]) OT Gross Range of Motion Upper Extremity Range of Motion Assessment Bilaterally Impaired ROM Impairments Pt has arthritic changes OT- Coordination Assessment Upper Extremity Finger to Nose Test Within Functional Limits Finger Tapping Test Within Functional Limits OT-Muscle Tone Assessment Muscle Tone WNL Yes OT Sensation Assessment Edema Edema Present Edema Comments the the R knee M9 OT- IP Assessment and Plan Start: 12/02/23 13:25 Freq: Status: Active Protocol: Document 12/02/23 13:25 CGR (Rec: 12/02/23 13:39 CGR [id number]) OT Summary Assessment and Plan Potential Rehabilitation Potential Good Analytic Complexity at Evaluation Moderate Summary OT Impairments Pain,Balance,Functional Mobility,Grooming,Dressing, Toileting,Bathing,Toilet Transfers,Shower Transfers, Activity Tolerance Progress Towards Goals Progressing Toward Goals Assessment Summary Pt presents as a moderate complexity evaluation s/p admit for R TKA. Pt has good support from her and is ambulating with SBA using the walker. Pt also already gets help with some ADLs at baseline and will continue to need that help. Pt may benefit from LB dressing training and home safety, including shower training if still present in the hospital for next OT session. Recommend home with home health. Goals Grooming Goal Standby Assistance Dressing Goal Standby Assistance Toileting Goal Standby Assistance Bathing Goal Standby Assistance Toilet Transfer Goal Independent Shower Transfer Goal Standby Assistance Days to Meet Goals 3 Frequency of Treatment Frequency Of Treatment Once a Day Treatment Plan OT Treatment Plan ADL Training,Functional Mobility,Patient/Family Education,Discharge Planning Other Treatment Recommendations and Next shower training and LB Treatment Focus dressing training. Discharge Recommendations OT Discharge Recommendations Home with Assistance Transportation Needs at Discharge Private Vehicle
--- NOTE | 2023-12-02 09:37 | PT.IIE ---
Current Diagnoses Unilateral primary osteoarthritis, right knee (12/01/23) Nondisplaced fracture of body of scapula, right shoulder, initial encounter for closed fracture (12/01/23) Aftercare following joint replacement surgery (12/01/23) Presence of left artificial knee joint (12/01/23) Surgery Performed Operation Date: 12/01/23 10:45 Actual Procedures p Total Knee Arthroplasty - Robot(Right) - Sheeba Sanders MD Surgical History (Last Updated 11/25/23 @ 13:52 by Debbie Tierney RN) History of back surgery History of partial hysterectomy History of repair of left rotator cuff History of repair of right rotator cuff 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) History of right breast biopsy 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) Hx of arthroscopy of right knee Hx of bilateral cataract extraction Hx of tonsillectomy Medical History (Last Updated 07/01/23 @ 10:21 by Debbie Tierney RN) Arthritis Back pain Diverticulosis GERD (gastroesophageal reflux disease) History of COVID-19 (08/2022) [place] (hard of hearing) Migraines Numbness Osteoporosis Restless leg syndrome Rosacea Scoliosis Physical Therapy Inpatient Evaluation/Re-Eval M1 PT/OT-IP Prior Functional Status Start: 12/02/23 08:43 Freq: NEEDED Status: Active Protocol: Document 12/02/23 08:43 KIKI (Rec: 12/02/23 09:36 MB [id number]) Medical Review Prior Functional Status Medical History Reviewed Yes Diet/Fluid Consistency Regular Communication WNLs Mobility and Gait Mod I with RW and assist for some things like donning and doffing socks Activities of Daily Living and IADL's See above Social History Household Members spouse Living Arrangements House Number of Floors (Floors) Two Floors Number of Stairs To Enter/Railing? Flat to get in and does not have to go to basement, does not have to do stairs Home Environment Standard Height Toilet,High Toilet,Walk in Shower Home Equipment Front Wheel Walker,Four Wheel Walker,Straight Cane,Raised Toilet Seat Without Armrests, Grab Bars Near Toilet Employment Status Retired M2 PT-IP Current Condition Start: 12/02/23 08:43 Freq: NEEDED Status: Active Protocol: Document 12/02/23 08:43 MB (Rec: 12/02/23 09:36 MB [id number]) Physical Therapy Current Condition Current Condition Evaluation Date 12/02/23 Treatment Diagnosis R TKA M3 PT-IP Subjective Start: 12/02/23 08:43 Freq: NEEDED Status: Active Protocol: Document 12/02/23 08:43 MB (Rec: 12/02/23 09:36 MB [id number]) Subjective Physical Therapy Visit Type Type Initial Evaluation Visit Start Time 08:43 Visit Stop Time 09:20 Number of BINGO FLOATER Visits 0 Therapy Pain Assessment Pain When Pain Assessed At Rest Pain Present Pain Present Pain Reported Location Right knee Intensity 7 Scale Used Numeric (0 - 10) Pain Management Techniques Distraction,Modification of Treatment,Re-positioning Left Knee Intensity 1 Scale Used Numeric (0 - 10) Pain Management Techniques Distraction,Modification of Treatment,Re-positioning M4 PT-IP Mobility and Gait Start: 12/02/23 08:43 Freq: NEEDED Status: Active Protocol: Document 12/02/23 08:43 MB (Rec: 12/02/23 09:36 MB [id number]) PT-Bed Mobility Assessment Rolling Level of Assist Contact Guard Assistance Supine to Sit Supine to Sit Contact Guard Assistance,1 Person Assistance Sit to Supine Sit to Supine Contact Guard Assistance,1 Person Assistance Scooting Scooting to Edge of Bed Contact Guard Assistance PT-Transfer Assessment Sit to and From Stand Sit to and from Stand Contact Guard Assistance,1 Person Assistance,Use of Upper Extremities Equipment Transfer Assistive Device Gait Belt,Front Wheeled Walker Orthotic/Prosthetic Devices or Brace: No Transfers Transfer Destination Bed Transfer Technique Ambulation Transfer Ability Level of Assist Contact Guard Assistance,1 Person Assistance,Use of Upper Extremities Comments Mobility Comments Pt moves very slow and has very little B shoulder movement and strength d/t arthritis and surgeries and increased arthritis in fingers of both hands. She requires cues to push up from the chair and bed rather than the walker for STS and to let go of walker before sitting. Her mobility is slow. PT provides gait belt and places around her right foot to help her get her right leg into the bed Gait Assessment Gait Gait Assistance Required: Contact Guard Assist Distance (Feet) 20 Able to Maintain Weight Bearing Status Yes During Gait Assistive Devices Assistive Device Gait Belt,Front Wheeled Walker Orthotic/Prosthetic Devices or Brace: No Gait Deviations General Gait Pattern Antalgic,Decreased Stride Length,Decreased Feet Clearance,Flexed Trunk,Step-to Gait Factors Limiting Gait Function Factors Limiting Gait Function Decreased Activity Tolerance, Decreased Strength,Limited Range of Motion,Pain,Poor Balance Comments Gait Comments Pt keeps her right knee flexed throughout gait and her pattern is step-to in nature. She has flexed posture d/t spinal changes and pain in right leg Stair Climbing Assessment Comments Stair Climbing Comments No steps she will have to do at home PT-Balance Assessment Sitting Balance and Reactions Static Sitting Balance Ability Good Dynamic Sitting Balance Ability Good Standing Balance and Reactions Static Standing Balance Ability Fair Dynamic Standing Balance Ability Fair Device Used RW M5 PT-IP Objective Assessments Start: 12/02/23 08:43 Freq: NEEDED Status: Active Protocol: Document 12/02/23 08:43 MB (Rec: 12/02/23 09:36 [id number]) Orientation Orientation/Cognition Level of Alertness Alert Orientation Name,Age,Birthday,Month,Date, Year,Day of Week,Place, Situation Language Function Ability No Deficits Noted Safety Awareness Decreased Safety Awareness Memory Description No Deficits Noted Gross Range of Motion Upper Extremity ROM Assessment Bilaterally Impaired Impairments Defer ROM and MMT to OT Lower Extremity ROM Assessment Bilaterally Impaired Impairments Left knee has some limited end -range movement and right knee grossly 20-40 deg today with legs elevated in the chair Strength Upper Extremity Strength Assessment Bilaterally Impaired Lower Extremity Strength Assessment Bilaterally Impaired Comments Strength Comments L ankle and knee are 5/5, R ankle is 4/5 and knee NT post- op Sensation Assessment Comments Sensation Comments Pt reports numbness/ paresthesias right great toe area/old issues from her spine and spinal surgery M6 PT-IP Treatment Start: 12/02/23 08:43 Freq: NEEDED Status: Active Protocol: Document 12/02/23 08:43 MB (Rec: 12/02/23 09:36 MB [id number]) Physical Therapy Treatment Exercises Exercises Ankle Pumps,Gluteal Sets,Quad Sets,Heel Slides Education Education Provided Weight Bearing Status,Post-Op Packet,Safety M7 PT-IP Assessment and Plan Start: 12/02/23 08:43 Freq: NEEDED Status: Active Protocol: Document 12/02/23 08:43 MB (Rec: 12/02/23 09:36 MB [id number]) PT Summary Assessment and Plan Potential Rehabilitation Potential Good Status of Condition at Evaluation Evolving Summary Impairments Pain,ROM,Strength,Balance,Bed Mobility,Transfers,Gait, Activity Tolerance Progress Towards Goals Slow Progress due to Pain Assessment Summary Pt is a pleasant 83 y/o female presenting with multi-joint changes in setting of arthritis and many surgeries many joints including spinal surgery. She c/o severe spasming in right leg last night that kept her awake and she is concerned about that when she d/cs home. She requires cues for hand placement for transfers and moves slowly and with antalgic and step-to gait with little right knee ROM. She is overall CGA level with RW and her is nearby for assessment. They feel they can manage at home when d/cd. Goals Bed Mobility Goal Independent Transfer Goal Independent,Front Wheeled Walker Gait Goal Independent,Front Wheel Walker Gait Distance 75 Days to Meet Goals 2 Frequency of Treatment Frequency Of Treatment Twice a Day Treatment Plan Physical Therapy Treatment Plan Bed Mobility Training,Transfer Training,Gait Training, Therapeutic Exercise,Balance Retraining,Post Op Education, Discharge Planning,Hot or Cold Pack,Neuromuscular Re-ed, Coordination Retraining,Manual Therapy Weight Bearing Status Weight Bearing Status Weight Bear as Tolerated Recommendations To Nursing Amount of Assist Needed Standby Assistance Discharge Recommendations PT Discharge Recommendations Home with 24/ Assist Available,Outpatient PT Transportation Needs at Discharge Private Vehicle
--- NOTE | 2023-12-02 12:45 | PT.IPTN ---
Current Diagnoses Unilateral primary osteoarthritis, right knee (12/01/23) Nondisplaced fracture of body of scapula, right shoulder, initial encounter for closed fracture (12/01/23) Aftercare following joint replacement surgery (12/01/23) Presence of left artificial knee joint (12/01/23) Surgery Performed Operation Date: 12/01/23 10:45 Actual Procedures p Total Knee Arthroplasty - Robot(Right) - Sheeba Sanders MD Physical Therapy Treatment Note M2 PT-IP Current Condition Start: 12/02/23 08:43 Freq: NEEDED Status: Active Protocol: Document 12/02/23 08:43 MB (Rec: 12/02/23 09:36 MB [id number]) Physical Therapy Current Condition Current Condition Evaluation Date 12/02/23 Treatment Diagnosis R TKA M3 PT-IP Subjective Start: 12/02/23 08:43 Freq: NEEDED Status: Active Protocol: Document 12/02/23 13:17 TS (Rec: 12/02/23 13:27 TS [id number]) Subjective Physical Therapy Visit Type Type Treatment Note Visit Start Time 12:45 Visit Stop Time 13:14 Number of PEANUT CLEANER Visits 1 Physical Therapy Visit Comments Patient Comments Pt found resting in chair, spouse in room. Pt reports having spasm in R Leg throughout night and was very painful. She questions why she can't have a higher dose of pain meds and goes into her history of surgeries. Pt is agreeable to PT. Therapy Pain Assessment Pain When Pain Assessed At Rest Pain Present Pain Present Pain Reported M4 PT-IP Mobility and Gait Start: 12/02/23 08:43 Freq: NEEDED Status: Active Protocol: Document 12/02/23 13:17 TS (Rec: 12/02/23 13:27 TS [id number]) PT-Transfer Assessment Sit to and From Stand Sit to and from Stand Minimal Assistance,1 Person Assistance,Use of Upper Extremities Equipment Transfer Assistive Device Gait Belt,Front Wheeled Walker Orthotic/Prosthetic Devices or Brace: No Comments Mobility Comments STS from chair with FWW and Loreta for posterior lean and balance. She is slow to stand and has difficulty transitioning UE's to FWW. She ambulated in room ~20'CGA/ Loreta. She has a slow step to gait and ~ last 5' pt had increased difficulty wbering on RLE and taking steps. Pt ambulated back to chair. She was left in chair, spouse in room, all needs met. Gait Assessment Gait Gait Assistance Required: Contact Guard Assist,Minimum Assistance Distance (Feet) 20 Able to Maintain Weight Bearing Status Yes During Gait Assistive Devices Assistive Device Gait Belt,Front Wheeled Walker Orthotic/Prosthetic Devices or Brace: No Gait Deviations General Gait Pattern Antalgic,Decreased Stride Length,Decreased Feet Clearance,Flexed Trunk,Step-to Gait Factors Limiting Gait Function Factors Limiting Gait Function Decreased Activity Tolerance, Decreased Strength,Limited Range of Motion,Pain,Poor Balance Comments Gait Comments See mobility comments PT-Balance Assessment Sitting Balance and Reactions Static Sitting Balance Ability Good Dynamic Sitting Balance Ability Good Standing Balance and Reactions Static Standing Balance Ability Fair Dynamic Standing Balance Ability Fair Device Used RW M5 PT-IP Objective Assessments Start: 12/02/23 08:43 Freq: NEEDED Status: Active Protocol: Document 12/02/23 08:43 MB (Rec: 12/02/23 09:36 MB [id number]) Orientation Orientation/Cognition Level of Alertness Alert Orientation Name,Age,Birthday,Month,Date, Year,Day of Week,Place, Situation Language Function Ability No Deficits Noted Safety Awareness Decreased Safety Awareness Memory Description No Deficits Noted Gross Range of Motion Upper Extremity ROM Assessment Bilaterally Impaired Impairments Defer ROM and MMT to OT Lower Extremity ROM Assessment Bilaterally Impaired Impairments Left knee has some limited end -range movement and right knee grossly 20-40 deg today with legs elevated in the chair Strength Upper Extremity Strength Assessment Bilaterally Impaired Lower Extremity Strength Assessment Bilaterally Impaired Comments Strength Comments L ankle and knee are 5/5, R ankle is 4/5 and knee NT post- op Sensation Assessment Comments Sensation Comments Pt reports numbness/ paresthesias right great toe area/old issues from her spine and spinal surgery M6 PT-IP Treatment Start: 12/02/23 08:43 Freq: NEEDED Status: Active Protocol: Document 12/02/23 13:17 TS (Rec: 12/02/23 13:27 TS [id number]) Physical Therapy Treatment Education Education Provided Weight Bearing Status,Post-Op Packet,Safety M7 PT-IP Assessment and Plan Start: 12/02/23 08:43 Freq: NEEDED Status: Active Protocol: Document 12/02/23 13:17 TS (Rec: 12/02/23 13:27 TS [id number]) PT Summary Assessment and Plan Potential Rehabilitation Potential Good Summary Impairments Pain,ROM,Strength,Balance,Bed Mobility,Transfers,Gait, Activity Tolerance Progress Towards Goals Slow Progress due to Pain Assessment Summary Job is making some progress with her mobility but remains limited by pain. She is Loreta for STS with use of FWW from chair. She continues to ambulate short distances in room with use of FWW. She progressively had more difficulty with gait and wbering on RLE with last few feet of gait. She continues to worry about going home and having her leg spasms at home. PT is recommending pt return home with 24/ assist and outpatient PT. Goals Bed Mobility Goal Independent Transfer Goal Independent,Front Wheeled Walker Gait Goal Independent,Front Wheel Walker Gait Distance 75 Days to Meet Goals 2 Frequency of Treatment Frequency Of Treatment Twice a Day Treatment Plan Physical Therapy Treatment Plan Bed Mobility Training,Transfer Training,Gait Training, Therapeutic Exercise,Balance Retraining,Post Op Education, Discharge Planning,Hot or Cold Pack,Neuromuscular Re-ed, Coordination Retraining,Manual Therapy Weight Bearing Status Weight Bearing Status Weight Bear as Tolerated Recommendations To Nursing Amount of Assist Needed Standby Assistance Discharge Recommendations PT Discharge Recommendations Home with 24/ Assist Available,Outpatient PT Transportation Needs at Discharge Private Vehicle
[2023-12-02] MEDS: hydrOXYzine HCL 25 MG TABLET PO ×2 (12:59→16:52)
--- NOTE | 2023-12-02 14:32 | P.PN_ITS ---
Subjective Subjective Interval history: Job is a pleasant 83-year-old female who is postop day #1 right total knee arthroplasty by Dr. Sanders. Patient reports she has been having severe leg spasms overnight which were very painful and made it difficult for her to sleep. She reports difficulty ambulating due to leg pain and spasming. Patient endorses some RLE decreased sensation but states this is baseline from her severe scoliosis and not new or worse since surgery. She has been given Valium, Mirapex and Vistaril for the spasming which seems to occurring less frequently now. Lives at home with who is willing and able to aid in her post-op recovery. She has been able to walk to the bathroom with assistance to urinate. Denies fever, chills, chest pain, SOB, nausea, vomiting. Operative Date/Time/Diagnoses Date of procedure: 12/01/23 Time of procedure: 12:00 Pre-op diagnosis: Right knee arthritis M17.11 Post-op diagnosis: same Procedure & Clinicians Procedure: Right total knee arthroplasty CPT code 33594 Robotic assisted surgery [id number] Imageless navigation [id number] Same procedure as scheduled: Yes Indications: The patient is a 83 year old female with end-stage [id number] knee arthritis. The patient has valgus knee arthritis. They have failed conservative treatment with activity modifications, injections, physical therapy and bracing. They has been indicated for total knee replacement. The risks and benefits of the procedure have been discussed with the patient even opportunity to ask questions. The risks of surgery include but are not limited to infection, malunion, nonunion, fracture, loosening, persistence of pain, damage to nerves and blood vessels, need for additional procedures, DVT, PE, cardiopulmonary complications and . The patient expressed a thorough understanding of the risks and benefits of surgery and has elected to proceed. Consent was signed in the office. Surgeon: Sheeba Sanders Planer Mill Grader: Nolan Vila Anesthesia Type: General, Peripheral nerve block and Local Exam Vital Signs (past 8 hours): - 12/02/23 07:00 12/02/23 08:00 Temperature 97.5 F L 97.7 F Pulse Rate 75 68 Respiratory Rate 18 16 Blood Pressure 121/51 L 130/64 Pulse Oximetry 94 97 Oxygen Flow Rate 0 0 Oxygen Delivery Method Room Air Oxygen Flow Rate 0 Narrative Exam Narrative: Lying uncomfortably in bed with knees flexed during our interview today. Patient with facial grimacing d/t leg spasms. Const General: cooperative Resp Effort & Inspection: normal respiratory effort and able to speak in complete sentences Cardio Rate: regular rate Skin Other: Clean and dry Aquacel dressing intact over the right anterior knee. Extrem Other: Grossly normal alignment, moderate right knee effusion. Right knee ROM 10-40. 5/5 DF, PF, EHL. Gross sensation intact throughout RLE (has history of diminished sensation to light touch prior to surgery). Brisk capillary refill, pulses intact. Psych Mental Status: mental status grossly normal Speech and Movement: speech and movement normal Objective Labs 12/02/23 05:22 12/02/23 05:22 Labs: Laboratory Results - last 24 hr 12/02/23 05:22 Hgb 9.8 L Hct 29.9 L Sodium 134 L Potassium 4.1 Chloride 105 Carbon Dioxide 26 BUN 16 Creatinine 0.55 Estimated GFR > 60 BUN/Creatinine Ratio 29.1 H Glucose 95 Calcium 8.9 PFSH Medical History (Updated 07/01/23 @ 10:21 by Debbie Tierney RN) History of COVID-19 (08/2022) Rosacea Osteoporosis Arthritis Scoliosis Diverticulosis GERD (gastroesophageal reflux disease) Back pain [id number] (hard of hearing) Numbness Migraines Restless leg syndrome Surgical History (Updated 11/25/23 @ 13:52 by Debbie Tierney RN) 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) Hx of arthroscopy of right knee Hx of tonsillectomy History of right breast biopsy History of partial hysterectomy Hx of bilateral cataract extraction History of repair of right rotator cuff History of repair of left rotator cuff History of back surgery Social History household members: spouse Smoking Status: Never smoker alcohol intake: current Assessment & Plan Post-op Postoperative Procedures: Procedures Operation Date: 12/01/23 10:45 Actual Procedure Side Surgeon p Total Knee Arthroplasty - Robot Right Sheeba Sanders MD Postoperative day: 1 Postoperative plan narrative: Plan to discharge to home with pending better pain control and mobility. Will work with PT today. 1) continue multimodal pain management. Ice to the knee for additional pain control . 2) Weight bearing as tolerated. Continue to work on ROM, strengthening, stretching with outpatient physical therapy and at home. 3) keep dressing intact until 2 week postop appointment. No soaking the incision site in pools or tubs. No topical ointments or creams to the incision site. 4) follow-up at [facility] orthopedics in 2 weeks for a postop appointment. Quality VTE Deep Vein Thrombosis/Pulmonary Embolism Present on Admission: No
[2023-12-02 16:00] VITALS: BP 126/60; PULSE 94; RESP 16; TEMP 36.4; O2SAT 100
== END 2023-12-02 17:05 | disposition home or self-care (01) ==
LOC: OR 09:13 → AC 09:13
PROVIDERS: Physician Assistant Surgical; Family Provider Family Medicine; PCP Family Medicine; Referring Provider Orthopaedic Surgery Foot and Ankle Surgery; Visit Provider Orthopaedic Surgery Foot and Ankle Surgery
PROC: 0SRC0JZ Replacement of Right Knee Joint with Synthetic Substitute, Open Approach (ICD-10-PCS; CPT 27447; principal; 2023-12-01 10:45)
DX: M17.11 Unilateral primary osteoarthritis, right knee (principal); G89.18 Other acute postprocedural pain; M21.061 Valgus deformity, not elsewhere classified, right knee; M25.761 Osteophyte, right knee
CPT/HCPCS: 27447; 20985; 36415; 64450; 73560; 80048; 85014; 85018; 97110; 97116; 97161; 97166; 97530; 97535; C1776; A9270; C9290; J0171; J0690; J1100; J1170; J2405; J2704; J3010; J3360; J3410

== ENCOUNTER 2024-05-18 20:19 | Inpatient (IN) | payer MEDICARE, OTHER, SELFPAY ==
[2023-12-01 15:38] VITALS: BMI 26.0
[2024-05-18] VITALS (7 sets, daily range): BP systolic 145–191; BP diastolic 68–87; PULSE 71–87; RESP 16–22; TEMP 36.6; O2SAT 90–100; BMI 23.4; BMI 24.3
--- NOTE | 2024-05-18 20:28 | DI.RAD.S_ITS ---
PROCEDURE: XR HIP W PEL IF DONE RT 2V INDICATIONS: GLF, right hip pain TECHNIQUE: 2 views of the hip were acquired. COMPARISON: SNO Outside Film, CR, XR INTRAOPERATIVE FLUORO GREATER THAN 1 HOUR, 02/25/2024, 13:55. FINDINGS: Bones: Prior surgical fixation of the right femur. Acute subcapital femoral fracture is present. Soft tissues: No suspicious soft tissue calcifications or masses. IMPRESSION: Acute subcapital right femoral fracture present, new since 02/25/2024. Dictated by: Foreign Rodriguez M.D. on 05/18/2024 at 21:20 Approved by: Foreign Rodriguez M.D. on 05/18/2024 at 21:21
--- NOTE | 2024-05-18 20:56 | ED_ITS ---
HPI - Fall General Chief Complaint: Fall Stated Complaint: fall r hip Time Seen by Provider: 05/18/24 20:32 Source: patient and EMS Mode of arrival: EMS History of Present Illness HPI Narrative: 83-year-old female who approximately 6 weeks ago sustained a fall where she fractured her right hip. She underwent surgery. Went to rehab. Is now back home. States she has baseline issues with stability. She was standing in her kitchen today. States she lost her balance and fell and landed on her right hip and has been unable to ambulate on the hip since then. No other injuries from the event. Not on anticoagulation. Related Data Home Medications Medication Instructions Recorded Confirmed alendronate 70 mg tablet (Fosamax) 70 mg PO QWEEK 03/28/18 12/01/23 acetaminophen 500 mg tablet 500 mg PO QID 07/01/23 12/01/23 gabapentin 300 mg capsule 300 mg PO QID 11/25/23 12/01/23 pramipexole 0.5 mg tablet 0.5 mg PO BID PRN RLS 11/25/23 11/25/23 Previous Rx's Medication Instructions Recorded oxycodone 5 mg tablet 5 mg PO Q4-6H PRN Pain, Moderate 03/29/18 (4-6) #60 tabs naloxone 4 mg/actuation nasal 4 mg intranasal Q3M PRN opioid 07/09/23 spray (Narcan) overdose #2 ea ondansetron 4 mg disintegrating 4 mg PO Q8H PRN nausea and 07/09/23 tablet vomiting #7 tabs aspirin 81 mg tablet,delayed 81 mg PO BID #42 tabs 12/02/23 release cyclobenzaprine 10 mg tablet 10 mg PO TID PRN muscle spasm #30 12/02/23 tabs Allergies Allergy/AdvReac Type Severity Reaction Status Date / Time Penicillins Allergy Severe Rash Verified 05/18/24 20:26 monosodium glutamate AdvReac Severe nasal Verified 05/18/24 20:26 congestion Tetracyclines AdvReac Severe dizziness, Verified 05/18/24 20:26 headache, lightheaded, I collapsed Review of Systems Review of Systems Narrative: See HPI Patient History Medical History History of COVID-19 (08/2022) Rosacea Osteoporosis Arthritis Scoliosis Diverticulosis GERD (gastroesophageal reflux disease) Back pain [place] (hard of hearing) Numbness Migraines Restless leg syndrome Surgical History (Updated 11/25/23 @ 13:52 by Debbie Tierney RN) 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) Hx of arthroscopy of right knee Hx of tonsillectomy History of right breast biopsy History of partial hysterectomy Hx of bilateral cataract extraction History of repair of right rotator cuff History of repair of left rotator cuff History of back surgery Social History household members: spouse Smoking Status: Never smoker alcohol intake: current Smoking Status: Never smoker alcohol intake frequency: a few times a month Substance Use Type: does not use Exam Initial Vital Signs Initial Vital Signs: Vital Signs Temperature 97.8 F 05/18/24 20:24 Pulse Rate 78 05/18/24 20:24 Respiratory Rate 16 05/18/24 20:24 Blood Pressure 150/68 H 05/18/24 20:24 Pulse Oximetry 100 05/18/24 20:24 Oxygen Delivery Method Room Air 05/18/24 20:24 Const General: cooperative, comfortable and No ill appearing [facility] Head: normal to inspection and normocephalic Skin General: no rashes or lesions noted Neuro General: patient alert, patient awake and patient oriented x3 Extrem Other: Discomfort with palpation of the right hemipelvis Course Orders Ordered: ED Orders 05/18/24 20:28 XR hip w pel if done RT 2V Stat 05/18/24 20:34 Basic Metabolic Panel Stat Complete Blood Count AUTO DIFF Stat 05/18/24 20:59 Consult to Orthopedic Surgery Stat Acetaminophen (Acetaminophen 325 Mg Tablet) 325 mg PO QID JOANNE Acetaminophen (Acetaminophen 325 Mg Tablet) 650 mg PO Q6H PRN PRN Reason: Fever/Mild Pain (1-3) Albuterol (Albuterol 2.5 Mg/3 Ml Neb (Adult)) 2.5 mg INH [id number] PRN PRN Reason: Dyspnea Cyclobenzaprine HCl (Cyclobenzaprine 10 Mg Tablet) 10 mg PO TID PRN PRN Reason: muscle spasm Last Admin: 05/18/24 23:36 Dose: 10 mg Documented By: GIANNI Gabapentin (Gabapentin 300 Mg Capsule) 300 mg PO QID [facility] Last Admin: 05/18/24 23:44 Dose: 300 mg Documented By: GIANNI Heparin Sodium (Porcine) (Heparin 5,000 Unit/Ml Vial) 5,000 unit SUBCUT BID [facility] Hydromorphone HCl (Hydromorphone 0.5 Mg Inj) 0.5 mg IV Q2H PRN PRN Reason: Pain, Severe (7-10) Last Admin: 05/19/24 02:22 Dose: 0.5 mg Documented By: Admin: 05/18/24 21:36 Dose: 0.5 mg Documented By: YOEL Sodium Chloride (Normal Saline 0.9%) 1,000 mls @ 100 mls/hr IV CONT JOANNE Last Admin: 05/18/24 21:00 Dose: 100 mls/hr Documented By: GIANNI Naloxone HCl (Naloxone 0.4 Mg/Ml Vial) 0.2 mg IV Q2MIN PRN PRN Reason: Opiate Reversal Ondansetron HCl (Ondansetron 4 Mg Odt) 4 mg PO Q8H PRN PRN Reason: nausea and vomiting Ondansetron HCl (Ondansetron 4 Mg/2 Ml Inj) 4 mg IV Q8HR PRN PRN Reason: Nausea And Vomiting Oxycodone HCl (Oxycodone Ir 5 Mg Tablet) 5 mg PO Q4H PRN PRN Reason: Pain, Moderate (4-6) Last Admin: 05/18/24 23:36 Dose: 5 mg Documented By: GIANNI Pramipexole Dihydrochloride (Pramipexole 0.25 Mg Tablet) 0.5 mg PO BID PRN PRN Reason: RLS Vital Signs Vital signs: Vital Signs - 8 hr 05/18/24 20:24 Temperature 97.8 F Pulse Rate 78 Respiratory Rate 16 Blood Pressure 150/68 H Pulse Oximetry 100 Oxygen Delivery Method Room Air MDM - Fall Lab Data Attestation: I reviewed the patient's lab results. 05/18/24 20:34 05/18/24 20:34 Labs: Lab Results 05/18/24 Range/Units 20:34 WBC 9.5 (4.5-11.0) X10^3/uL RBC 3.81 L (4.0-5.2) X10^6/uL Hgb 11.4 L (12.0-16.0) g/dL Hct 34.2 L (36-46) % MCV 89.7 (80-100) fL MCH 29.9 (26-34) PG MCHC 33.4 (30-36) % RDW 14.2 (11.6-14.8) % Plt Count 312 (150-400) X10^3/uL Neut % (Auto) 73.1 (50-75) % Lymph % (Auto) 15.1 L (25-40) % [place] % (Auto) 9.5 (3-14) % Eos % (Auto) 1.9 L (2-4) % Baso % (Auto) 0.4 (0-2) % Neut # (Auto) 6900 (6684-3861) /uL Lymph # (Auto) 1400 (8667-2274) /uL [place] # (Auto) 900 (0-900) /uL Eos # (Auto) 200 (0-450) /uL Baso # (Auto) 0 (0-100) /uL Sodium 128 L (137-145) mmol/L Potassium 4.2 (3.4-5.1) mmol/L Chloride 96 L (98-107) mmol/L Carbon Dioxide 24 (22-32) mmol/L BUN 17 (7-17) mg/dL Creatinine 0.53 (0.52-1.04) mg/dL Estimated GFR > 60 (>60) mL/min BUN/Creatinine Ratio 32.1 H (6-22) Glucose 106 (80-110) mg/dL Calcium 9.3 (8.4-10.2) mg/dL Imaging Data Extremity x-ray #1: Radiologist's Impression: PROCEDURE: XR HIP W PEL IF DONE RT 2V INDICATIONS: GLF, right hip pain TECHNIQUE: 2 views of the hip were acquired. COMPARISON: [facility] Outside Film, CR, XR INTRAOPERATIVE FLUORO GREATER THAN 1 HOUR, 02/25/2024, 13:55. FINDINGS: Bones: Prior surgical fixation of the right femur. Acute subcapital femoral fracture is present. Soft tissues: No suspicious soft tissue calcifications or masses. IMPRESSION: Acute subcapital right femoral fracture present, new since 02/25/2024. MDM Narrative Medical decision making narrative: Patient appears to have a failure of the prior pins were placed for her femoral neck fracture. I did discuss the case with Dr. Sanders on-call for Orthopedic surgery who recommended the patient be admitted to the Medicine Service. I then discussed the case with Dr. Ahumada hospitalist on-call who will admit. I did discuss the findings of the x-ray with the patient and the requirement for admission and most likely surgery. She expressed understanding and agreement. We contacted [facility] in order to obtain prior surgical records. We have yet to receive these records upon patient's admission. Discharge Plan Departure Patient Disposition: Admitted As Inpatient Clinical Impression: Fracture of femoral neck, right Admit Date/Time: 05/18/24 21:08 Admit Provider: Rehan Ahumada
[2024-05-18] MEDS: SODIUM CHLORIDE 0.9% 1,000 ML 100 ML IV (21:00)
[2024-05-18] MEDS: HYDROMORPHONE 0.5 MG INJ IV (21:36)
[2024-05-18 21:39] LABS: Add Manual Diff / Slide Review NO; Basophils Absolute Auto 0 /uL (0-100); Basophils Percent Auto 0.4 % (0-2); Eosinophils Absolute Auto 200 /uL (0-450); Eosinophils Percent Auto 1.9 % (2-4); Hematocrit 34.2 % (36-46); Hemoglobin 11.4 g/dL (12.0-16.0); Lymphocytes Absolute Auto 1400 /uL (1100-4500); Lymphocytes Percent Auto 15.1 % (25-40); Mean Corpuscular HGB Conc 33.4 % (30-36); Mean Corpuscular Hemoglobin 29.9 PG (26-34); Mean Corpuscular Volume 89.7 fL (80-100); Monocytes Absolute Auto 900 /uL (0-900); Monocytes Percent Auto 9.5 % (3-14); Neutrophils Absolute Auto 6900 /uL (1500-7000); Neutrophils Percent Auto 73.1 % (50-75); Platelet Count 312 X10^3/uL (150-400); Red Blood Cell Count 3.81 X10^6/uL (4.0-5.2); Red Cell Distribution Width 14.2 % (11.6-14.8); White Blood Cell Count 9.5 X10^3/uL (4.5-11.0)
[2024-05-18 21:44] LABS: BUN Creatinine Ratio 32.1 (6-22); Blood Urea Nitrogen 17 mg/dL (7-17); Calcium 9.3 mg/dL (8.4-10.2); Carbon Dioxide 24 mmol/L (22-32); Chloride 96 mmol/L (98-107); Estimated Glomerular Filt Rate > 60 mL/min (>60); Glucose 106 mg/dL (80-110); HEMOLYSIS 22 (0-50); Potassium 4.2 mmol/L (3.4-5.1); Sodium 128 mmol/L (137-145)
--- NOTE | 2024-05-18 23:25 | P.HP_ITS ---
History of Present Illness History of Present Illness Chief complaint: fall r hip Narrative: 83 years old female with osteoarthritis and multiple orthopedic surgeries presented to the ER after ground-level fall at home after she lost her balance. The patient has multiple falls in the past and multiple orthopedic surgeries, last 1 was in November for left knee replacement. She also had reversal of total shoulder arthroplasty. Reported chronic dizziness and loss of balance. Denies any loss of consciousness, head injury, chest pain prior to the event. In the ER she was consulted with orthopedic surgery and was decided to be admitted for further management. [facility] Medical History (Updated 05/18/24 @ 21:05 by Graham Swenson DO) History of COVID-19 (08/2022) Rosacea Osteoporosis Arthritis Scoliosis Diverticulosis GERD (gastroesophageal reflux disease) Back pain [place] (hard of hearing) Numbness Migraines Restless leg syndrome Surgical History (Updated 11/25/23 @ 13:52 by Debbie Tierney RN) 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) Hx of arthroscopy of right knee Hx of tonsillectomy History of right breast biopsy History of partial hysterectomy Hx of bilateral cataract extraction History of repair of right rotator cuff History of repair of left rotator cuff History of back surgery Social History household members: spouse Smoking Status: Never smoker alcohol intake: current Meds Home Medications and Allergies Home Medications Medication Instructions Recorded Confirmed Type alendronate 70 mg tablet (Fosamax) 70 mg PO QWEEK 03/28/18 12/01/23 History oxycodone 5 mg tablet 5 mg PO Q4-6H PRN Pain, Moderate 03/29/18 12/01/23 Rx (4-6) #60 tabs acetaminophen 500 mg tablet 500 mg PO QID 07/01/23 12/01/23 History naloxone 4 mg/actuation nasal 4 mg intranasal Q3M PRN opioid 07/09/23 11/25/23 Rx spray (Narcan) overdose #2 ea ondansetron 4 mg disintegrating 4 mg PO Q8H PRN nausea and 07/09/23 11/25/23 Rx tablet vomiting #7 tabs gabapentin 300 mg capsule 300 mg PO QID 11/25/23 12/01/23 History pramipexole 0.5 mg tablet 0.5 mg PO BID PRN RLS 11/25/23 11/25/23 History aspirin 81 mg tablet,delayed 81 mg PO BID #42 tabs 12/02/23 12/01/23 Rx release cyclobenzaprine 10 mg tablet 10 mg PO TID PRN muscle spasm #30 12/02/23 Rx tabs Allergies Allergy/AdvReac Type Severity Reaction Status Date / Time Penicillins Allergy Severe Rash Verified 05/18/24 20:26 monosodium glutamate AdvReac Severe nasal Verified 05/18/24 20:26 congestion Tetracyclines AdvReac Severe dizziness, Verified 05/18/24 20:26 headache, lightheaded, I collapsed Review of Systems Review of Systems ROS: Yes All systems reviewed with the patient and are negative except as otherwise documented Constitutional Constitutional: Reports as per HPI and Reports system reviewed and no additional complaints, except as documented Eyes Eyes: Reports as per HPI and Reports system reviewed and no additional complaints, except as documented ENT Ears, Nose, Mouth, and Throat: Yes as per HPI and Yes system reviewed and no additional complaints, except as documented Cardiovascular Cardiovascular: Reports system reviewed and no additional complaints, except as documented Respiratory Respiratory: Reports system reviewed and no additional complaints, except as documented Gastrointestinal Gastrointestinal: Reports system reviewed and no additional complaints, except as documented Genitourinary Genitourinary: Reports system reviewed and no additional complaints, except as documented Musculoskeletal Musculoskeletal: Reports system reviewed and no additional complaints, except as documented, Reports abnormal gait and Reports numbness Neurologic Neurologic: Reports system reviewed and no additional complaints, except as documented, Reports abnormal gait, Reports confusion and Reports numbness Psychiatric Psychiatric: Reports system reviewed and no additional complaints, except as documented and Reports confusion Exam Vital Signs (past 8 hours): - 05/18/24 20:24 05/18/24 21:10 05/18/24 21:20 Temperature 97.8 F Pulse Rate 78 87 Respiratory Rate 16 22 Blood Pressure 150/68 H 145/87 H Pulse Oximetry 100 98 Oxygen Delivery Method Room Air Room Air Room Air Oxygen Flow Rate 05/18/24 21:30 Temperature 97.9 F Pulse Rate 87 Respiratory Rate 20 Blood Pressure 191/81 H Pulse Oximetry 100 Oxygen Delivery Method Oxygen Flow Rate 0 Oxygen Delivery Method Room Air Oxygen Flow Rate 0 Const General: cooperative, comfortable and well developed Orientation: alert and oriented x3 HENMT Head: normal to inspection, normocephalic and atraumatic Face and sinus: normal facial exam Mouth: oral mucosae normal and moist mucous membranes Throat: posterior oropharynx normal Eyes General: appearance normal, both eyes and all related structures Pupils: PERRL EOM: EOM intact bilaterally Neck Neck: normal visual inspection and full ROM Chest Chest: normal inspection of the chest Resp Effort & Inspection: normal respiratory effort and able to speak in complete sentences Auscultation: clear to auscultation bilaterally Cardio Palpation: normal PMI Rate: regular rate Rhythm: regular rhythm Heart Sounds: S1 normal and S2 normal GI Inspection: normal to inspection Palpation: soft and no hepatosplenomegaly Auscultation: normal bowel sounds Skin General: no rashes or lesions noted Lesions: no lesions Rashes: no rashes Trauma: no lacerations or abrasions Neuro General: patient alert, patient awake, patient oriented x3 and no focal motor deficits Cranial Nerves: CN's II-XI intact bilaterally Cognition: normal cognition Speech: speech normal Gait: normal gait Motor: muscle tone normal throughout Sensory Exam: no sensory deficits noted Extrem General: full ROM and no calf tenderness Psych Appearance: grossly normal Mental Status: mental status grossly normal Speech and Movement: speech and movement normal Objective Labs 05/18/24 20:34 05/18/24 20:34 Labs: Laboratory Results - last 24 hr 05/18/24 20:34 WBC 9.5 RBC 3.81 L Hgb 11.4 L Hct 34.2 L MCV 89.7 MCH 29.9 MCHC 33.4 RDW 14.2 Plt Count 312 Neut % (Auto) 73.1 Lymph % (Auto) 15.1 L [place] % (Auto) 9.5 Eos % (Auto) 1.9 L Baso % (Auto) 0.4 Neut # (Auto) 6900 Lymph # (Auto) 1400 [place] # (Auto) 900 Eos # (Auto) 200 Baso # (Auto) 0 Sodium 128 L Potassium 4.2 Chloride 96 L Carbon Dioxide 24 BUN 17 Creatinine 0.53 Estimated GFR > 60 BUN/Creatinine Ratio 32.1 H Glucose 106 Calcium 9.3 Assessment & Plan Assessment & Plan narrative: Right hip fracture after ground-level fall. -Bedrest -Pain medications as needed -IV fluids -Orthopedic surgery consult -N.p.o. after midnight -Bowel regimen while on narcotics -Fall precaution -PT and OT evaluation on discharge -DVT prophylaxis per surgery Time-Based Coding :: [TOTAL MINUTES] spent with patient and on the chart (including review of chart, obtaining history, exam, reviewing outside data, placing orders, documenting exam and treatment plan, and counseling patient) on [DATE]. Quality VTE Deep Vein Thrombosis/Pulmonary Embolism Present on Admission: No MIPS - Admit I confirm the patient?s Advance Care Plan is present, Code status is documented, Surrogate decision maker is in patient?s record [If Yes, STOP here]: Yes MIPS - Meds 'Current medications' to include all prescriptions, [id number] products, herbals, cannabis/cannabidiol products, and vitamin/mineral/dietary (nutritional) supplements. I have utilized all available resources to obtain, update, or review the patient?s current medications. [If Yes, STOP here]: Yes
[2024-05-18] MEDS: CYCLOBENZAPRINE 10 MG TABLET PO (23:36)
[2024-05-18] MEDS: OXYCODONE IR 5 MG TABLET PO (23:36)
[2024-05-18] MEDS: GABAPENTIN 300 MG CAPSULE PO (23:44)
[2024-05-19 00:52] LABS: MRSA (Nasal) PCR NOT DETECTED (Not Detect)
[2024-05-19] MEDS: HYDROMORPHONE 0.5 MG INJ IV ×3 (02:22→06:36)
[2024-05-19] MEDS: OXYCODONE IR 5 MG TABLET PO (03:33)
[2024-05-19] MEDS: ACETAMINOPHEN 325 MG TABLET 650 MG PO (03:35)
[2024-05-19 04:40] VITALS: BP 126/67; PULSE 63; RESP 20; TEMP 36.8; O2SAT 95
[2024-05-19] MEDS: SODIUM CHLORIDE 0.9% 1,000 ML 100 ML IV (06:40)
--- NOTE | 2024-05-19 06:59 | P.CONS_ITS ---
History of Present Illness Consult details Date Patient Seen: 05/19/24 Time Patient Seen: 07:01 Chief complaint: fall r hip Reason for consult: Hip fracture right Requesting provider: Graham Swenson Narrative: Is an 83-year-old female known to me that presents to the emergency room today after a ground level fall. Patient has a remarkable history for a right femoral neck fracture February 25, 2024. She was seen at [facility] for this fracture and had an outside surgeon performed a reduction and internal fixation with cannulated screws. She has a history of several falls. She underwent a right total knee replacement by myself in November of 2023 and was noted to fit a fall early in the postoperative time, I suspect she tore a few of her medial arthrotomy stitches and developed lateral patellar tilting. She had additional falls that resulted in her right hip fracture. She was in rehab for 2 weeks after her hip fracture and was starting to do some minimal weight-bearing with a walker but had consistent groin pain thigh pain and lateral knee pain. She Was home and unloading groceries when her walker rolled back into her and she fell backwards onto her right hip again and had immediate increased pain and inability to weightbear 05/18/2024. She was brought by EMS to [facility] where she was found to have a displaced femoral neck fracture with failure of her cannulated screw hardware. She was unable to weightbear and has minimal assistance of 1 partner at home currently and was admitted to the hospital service with orthopedic consult for ongoing management. She does not take any blood thinners. She was otherwise a community ambulator prior to the hip fracture. She has an extensive spinal fusion surgery including spinal pelvic fusion from a large scoliosis correction surgery. History of osteoporosis. Meds Home Medications and Allergies Home Medications Medication Instructions Recorded Confirmed Type alendronate 70 mg tablet (Fosamax) 70 mg PO QWEEK 03/28/18 12/01/23 History oxycodone 5 mg tablet 5 mg PO Q4-6H PRN Pain, Moderate 03/29/18 12/01/23 Rx (4-6) #60 tabs acetaminophen 500 mg tablet 500 mg PO QID 07/01/23 12/01/23 History naloxone 4 mg/actuation nasal 4 mg intranasal Q3M PRN opioid 07/09/23 11/25/23 Rx spray (Narcan) overdose #2 ea ondansetron 4 mg disintegrating 4 mg PO Q8H PRN nausea and 07/09/23 11/25/23 Rx tablet vomiting #7 tabs gabapentin 300 mg capsule 300 mg PO QID 11/25/23 12/01/23 History pramipexole 0.5 mg tablet 0.5 mg PO BID PRN RLS 11/25/23 11/25/23 History aspirin 81 mg tablet,delayed 81 mg PO BID #42 tabs 12/02/23 12/01/23 Rx release cyclobenzaprine 10 mg tablet 10 mg PO TID PRN muscle spasm #30 12/02/23 Rx tabs Allergies Allergy/AdvReac Type Severity Reaction Status Date / Time Penicillins Allergy Severe Rash Verified 05/18/24 20:26 monosodium glutamate AdvReac Severe nasal Verified 05/18/24 20:26 congestion Tetracyclines AdvReac Severe dizziness, Verified 05/18/24 20:26 headache, lightheaded, I collapsed Review of Systems Review of Systems Narrative: Groin pain since about after right knee surgery November. Multiple falls. Right hip fracture in February. Endorses groin pain thigh pain lateral knee pain. No fevers or chills. ROS: Yes All systems reviewed with the patient and are negative except as otherwise documented Exam Vital Signs (past 8 hours): - 05/19/24 04:40 Temperature 98.3 F Pulse Rate 63 Respiratory Rate 20 Blood Pressure 126/67 Pulse Oximetry 95 Oxygen Flow Rate 0 Oxygen Delivery Method Room Air Oxygen Flow Rate 0 Narrative Exam Narrative: Alert and oriented female lying in bed towards her left side with a pillow between her legs. No gross deformity. Normocephalic atraumatic Lungs clear to auscultation bilaterally Regular rate and rhythm, heart Bilateral upper extremity benign. There are scars from previous shoulder surgery. Left lower extremity well-healed total knee arthroplasty incision no erythema no effusion. Demonstrates dorsiflexion plantar flexion 5/5. Calf and thigh soft. Right lower extremity tenderness to palpation around the hip and lateral knee. Endorses groin pain. Demonstrates dorsiflexion plantar flexion of the ankle. Calf and thigh are soft. Well-healed anterior total knee scar no effusion no erythema. Some prominence anteriorly consistent with a known patellar tilt. Dove in place Objective Imaging AP pelvis and lateral right hip x-ray: My impression: Of fixation displacement and loosening cannulated screws, displaced femoral neck fracture. Partially visualized extensive spinal pelvic fusion Radiologist's impression: Radiologist impression acute subcapital femoral neck fracture present new since 02/25/2024 with post surgical fixation right femur Labs 05/18/24 20:34 05/18/24 20:34 Labs: Laboratory Results - last 24 hr 05/18/24 05/18/24 20:34 23:15 WBC 9.5 RBC 3.81 L Hgb 11.4 L Hct 34.2 L MCV 89.7 MCH 29.9 MCHC 33.4 RDW 14.2 Plt Count 312 Neut % (Auto) 73.1 Lymph % (Auto) 15.1 L Weld % (Auto) 9.5 Eos % (Auto) 1.9 L Baso % (Auto) 0.4 Neut # (Auto) 6900 Lymph # (Auto) 1400 Weld # (Auto) 900 Eos # (Auto) 200 Baso # (Auto) 0 Sodium 128 L Potassium 4.2 Chloride 96 L Carbon Dioxide 24 BUN 17 Creatinine 0.53 Estimated GFR > 60 BUN/Creatinine Ratio 32.1 H Glucose 106 Calcium 9.3 Nasal Screen MRSA (PCR) Not detected PFSH Medical History History of COVID-19 (08/2022) Rosacea Osteoporosis Arthritis Scoliosis Diverticulosis GERD (gastroesophageal reflux disease) Back pain [place] (hard of hearing) Numbness Migraines Restless leg syndrome Surgical History 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) Hx of arthroscopy of right knee Hx of tonsillectomy History of right breast biopsy History of partial hysterectomy Hx of bilateral cataract extraction History of repair of right rotator cuff History of repair of left rotator cuff History of back surgery Social History household members: spouse Tobacco & Substance Use Smoking Status: Never smoker alcohol intake: current Assessment & Plan Assessment and plan (1) Osteoporotic hip fracture: Qualifiers: Encounter type: initial encounter Laterality: right Qualified Code(s): M80.051A - Age-related osteoporosis with current pathological fracture, right femur, initial encounter for fracture Status: Acute (2) Fracture of femoral neck, right: Qualifiers: Encounter type: initial encounter Fracture type: closed Qualified Code(s): S72.001A - Fracture of unspecified part of neck of right femur, initial encounter for closed fracture Status: Acute Plan Patient has a displaced femoral neck fracture of the right hip. This is a failure fixation of her previous nondisplaced fracture. I did compare this to the date of surgery x-rays at that time it did appear she had a nondisplaced femoral neck fracture with a cannulated screw fixation. She fell again she would now has loosened and backed out cannulated screws and displaced femoral neck fracture. Discussed this may have been having over time with acute worsening with the fall or all at once. If the hardware does not appear broken. We discussed the complexity of her situation with a displaced femoral neck fracture and extensive spinal pelvic fusion. We discussed definitive treatment with total hip arthroplasty however with her extensive spinal pelvic fusion there is increased risk for complications with this including dislocation. We discussed there are specialized implants designed to address this risks called do morbidity implants. Discussed that I discussed this patient with my hip arthroplasty colleague Dr. Palma who recommended dual mobility total hip arthroplasty implant for this patient given her community ambulator level of activity and spinal pelvic fusion comorbidities. I discussed going into the holiday weekend the specialized implants are not readily available but we would potentially be able to get her to surgery with my partner Dr. Maikel plummer on Wednesday following the with the appropriate specialized dual mobility implants. The patient understands and agrees with the plan. I discussed that some of her lateral knee pain may be related to her hip but it also may be related to lateral patellar tilting however we would need to address her hip 1st and they can continue following her knee once her hip is addressed and stable. I do think 1 of her falls in the early postoperative. Likely tore part of her arthrotomy as it does appear to have a change from the immediate postoperative x-ray with patella position and the patella was observed to track nicely during the operation. Regarding surgery planning the patient may eat today. This would be planned tentatively for Dr. Palma next Wednesday. We discussed disposition. With the failure of the hip pinning patient would potentially able to be nonweightbearing or touchdown for balance on the right lower extremity and discharge home over the weekend if there is appropriate pain control and help at home. It sounds like she has a partner and her daughter will be coming and available over the weekend to sew this may be an option if her pain is controlled and then could come back in for surgery on Wednesday with Dr. Maikel plummer. If there is no help available or if pain is uncontrolled then she may need to remain in the hospital until the surgery date. I will take a look at her pain medication see if there is anything we can add including lidocaine patch for her. High-level medical decision-making. Indication for major orthopedic surgery with hardware removal total hip arthroplasty requiring specialized implants. Time-Based Coding :: 1 hour spent with patient and on the chart (including review of chart, obtaining history, exam, reviewing outside data, placing orders, documenting exam and treatment plan, and counseling patient) on [DATE].
[2024-05-19 08:00] VITALS: BP 149/68; PULSE 80; RESP 16; TEMP 36.3; O2SAT 95
--- NOTE | 2024-05-19 08:09 | P.HP_ITS ---
History of Present Illness History of Present Illness Chief complaint: fall r hip Narrative: HPI: Job Farr presents with ongoing pain in her right hip following cannulated screw fixation for a femoral neck fracture performed approximately three months ago (January 2024). She reports persistent groin pain since the initial surgery. The pain has not subsided and has been present since the day of the operation. She also experienced a fall about a week after returning home from rehab. Last night she had another fall and was admitted to the hospital afterwards. The patient has a history of osteoarthritis and a long spine fusion extending from her lumbar spine down to her pelvis. SOCIAL HISTORY: - Resides on [address], between [place] and [place] - Lives in a house with her . - Uses a walker for balance at baseline. PERTINENT PMH: - Osteoarthritis - Osteoporosis - Long spine fusion for scoliosis correction PRIOR HIP/KNEE PROCEDURES: - Left total knee replacement: June 2023 - Right total knee replacement: November 2023 - Cannulated screw fixation of the right hip for femoral neck fracture: January 2024 PHYSICAL EXAM: Right Hip Exam: - Examination: Well-heeled surgical incision - Neurologic: Intact plantar flexion and dorsal flexion of the hallux and ankle, reports diminished sensation throughout the entire right leg, no diminished sensation in the left leg. RADIOLOGY: Images independently reviewed and interpreted: 1. Right Hip ? AP pelvis and lateral hip views: Prior cannulated screw fixation of a femoral neck fracture with displacement and shortening, screws backing out, early signs of avascular necrosis in the femoral head, very long spine fusion construct extending from lumbar spine to pelvis, femoral head collapse. 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 PLAN: I discussed the complexity of the surgical situation with the patient, emphasizing the multiple factors making the surgery complicated, including osteoporosis, recent hip surgery, and extensive spinal fusion. I plan to perform a total hip replacement and need to coordinate for specialized implants which will need to be delivered from [place] which are not available on the shelf at our hospital. The surgery will be scheduled, hopefully for Wednesday, to ensure we have coordinated everything we can to ensure the best conditions possible for her procedure. - Conversion right total hip arthroplasty through anterior approach. Cannulated screw removal, placement of Bimentum cup with [place] MDM on backup, cemented C stem. Broken screw removal set, cerclage cables and bonewax available - Will be helpful if we can get an operative note from [facility] describing the coremaker experimental of the screws that were used during her initial surgery to ensure we have the correct screwdrivers available - Schedule surgery for Wednesday if possible to coordinate with currently scheduled surgery center cases that day - Recommend patient to go home until the surgery date and explained the need for care coordination in anticipation of scheduled surgery that this would allow. I explained to the patient that I will be able to perform a better surgery for her if I do it in a controlled, scheduled fashion and that her hip has been progressing to this condition ever since her surgery and did not fail acutely during her fall. She is certainly more uncomfortable due to the fall itself but this is not what resulted in the failure of her fixation and if she had presented with these X-rays in an outpatient setting I would not have recommended admission to the hospital - Advise full weight-bearing on the right hip as tolerated. - Ensure pain control measures are in place, including muscle relaxers for spasms and management of restless leg syndrome. - PT/OT for mobilization and weight-bearing as tolerated with anticipation of discharge home to rest while awaiting return to the hospital for scheduled surgery. [facility] Medical History History of COVID-19 (08/2022) Rosacea Osteoporosis Arthritis Scoliosis Diverticulosis GERD (gastroesophageal reflux disease) Back pain [employer] (hard of hearing) Numbness Migraines Restless leg syndrome Surgical History 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) Hx of arthroscopy of right knee Hx of tonsillectomy History of right breast biopsy History of partial hysterectomy Hx of bilateral cataract extraction History of repair of right rotator cuff History of repair of left rotator cuff History of back surgery Social History household members: spouse Smoking Status: Never smoker alcohol intake: current Meds Home Medications and Allergies Home Medications Medication Instructions Recorded Confirmed Type alendronate 70 mg tablet (Fosamax) 70 mg PO QWEEK 03/28/18 12/01/23 History oxycodone 5 mg tablet 5 mg PO Q4-6H PRN Pain, Moderate 03/29/18 12/01/23 Rx (4-6) #60 tabs acetaminophen 500 mg tablet 500 mg PO QID 07/01/23 12/01/23 History naloxone 4 mg/actuation nasal 4 mg intranasal Q3M PRN opioid 07/09/23 11/25/23 Rx spray (Narcan) overdose #2 ea ondansetron 4 mg disintegrating 4 mg PO Q8H PRN nausea and 07/09/23 11/25/23 Rx tablet vomiting #7 tabs gabapentin 300 mg capsule 300 mg PO QID 11/25/23 12/01/23 History pramipexole 0.5 mg tablet 0.5 mg PO BID PRN RLS 11/25/23 11/25/23 History aspirin 81 mg tablet,delayed 81 mg PO BID #42 tabs 12/02/23 12/01/23 Rx release cyclobenzaprine 10 mg tablet 10 mg PO TID PRN muscle spasm #30 12/02/23 Rx tabs Allergies Allergy/AdvReac Type Severity Reaction Status Date / Time Penicillins Allergy Severe Rash Verified 05/18/24 20:26 monosodium glutamate AdvReac Severe nasal Verified 05/18/24 20:26 congestion Tetracyclines AdvReac Severe dizziness, Verified 05/18/24 20:26 headache, lightheaded, I collapsed Review of Systems Review of Systems ROS: Yes All systems reviewed with the patient and are negative except as otherwise documented Exam Vital Signs (past 8 hours): - 05/19/24 04:40 Temperature 98.3 F Pulse Rate 63 Respiratory Rate 20 Blood Pressure 126/67 Pulse Oximetry 95 Oxygen Flow Rate 0 Oxygen Delivery Method Room Air Oxygen Flow Rate 0 Const General: cooperative Orientation: alert and awake [facility] Head: normal to inspection Ears: hearing grossly normal bilaterally Eyes General: appearance normal, both eyes and all related structures Neck Neck: normal visual inspection Resp Effort & Inspection: normal respiratory effort and able to speak in complete sentences Cardio Pulses: other (peripheral pulses present) Skin Lesions: no lesions Rashes: no rashes Neuro General: patient alert, patient awake and moves all extremities Psych Appearance: grossly normal Objective Labs 05/18/24 20:34 05/18/24 20:34 Labs: Laboratory Results - last 24 hr 05/18/24 05/18/24 20:34 23:15 WBC 9.5 RBC 3.81 L Hgb 11.4 L Hct 34.2 L MCV 89.7 MCH 29.9 MCHC 33.4 RDW 14.2 Plt Count 312 Neut % (Auto) 73.1 Lymph % (Auto) 15.1 L [place] % (Auto) 9.5 Eos % (Auto) 1.9 L Baso % (Auto) 0.4 Neut # (Auto) 6900 Lymph # (Auto) 1400 [place] # (Auto) 900 Eos # (Auto) 200 Baso # (Auto) 0 Sodium 128 L Potassium 4.2 Chloride 96 L Carbon Dioxide 24 BUN 17 Creatinine 0.53 Estimated GFR > 60 BUN/Creatinine Ratio 32.1 H Glucose 106 Calcium 9.3 Nasal Screen MRSA (PCR) Not detected Assessment & Plan Time-Based Coding :: [TOTAL MINUTES] spent with patient and on the chart (including review of chart, obtaining history, exam, reviewing outside data, placing orders, documenting exam and treatment plan, and counseling patient) on [DATE]. Quality VTE Deep Vein Thrombosis/Pulmonary Embolism Present on Admission: No
[2024-05-19] MEDS: ACETAMINOPHEN 325 MG TABLET PO ×4 (08:22→21:16)
[2024-05-19] MEDS: OXYCODONE IR 10 MG TABLET PO ×3 (08:22→23:11)
[2024-05-19] MEDS: GABAPENTIN 300 MG CAPSULE PO ×4 (08:22→21:16)
[2024-05-19] MEDS: LIDOCAINE 5% PATCH 1 EACH TOP (08:23)
[2024-05-19] MEDS: HEPARIN 5,000 UNIT/ML VIAL 5000 UNIT SUBCUT ×2 (08:23→21:18)
[2024-05-19 08:52] LABS: BUN Creatinine Ratio 22.4 (6-22); Blood Urea Nitrogen 11 mg/dL (7-17); Calcium 8.7 mg/dL (8.4-10.2); Carbon Dioxide 25 mmol/L (22-32); Chloride 102 mmol/L (98-107); Estimated Glomerular Filt Rate > 60 mL/min (>60); Glucose 111 mg/dL (80-110); HEMOLYSIS 16 (0-50); Potassium 4.1 mmol/L (3.4-5.1); Sodium 132 mmol/L (137-145)
[2024-05-19] MEDS: CYCLOBENZAPRINE 10 MG TABLET PO ×2 (10:21→17:07)
--- NOTE | 2024-05-19 11:17 | OT.IP.EVAL ---
Current Diagnoses Age-related osteoporosis with current pathological fracture, right femur, initial encounter for fracture (05/18/24) Fracture of unspecified part of neck of right femur, initial encounter for closed fracture (05/18/24) Past Medical History (Last Reviewed 05/19/24 @ 07:04 by Sheeba Sanders MD) Arthritis Back pain Diverticulosis GERD (gastroesophageal reflux disease) History of COVID-19 (08/2022) [place] (hard of hearing) Migraines Numbness Osteoporosis Restless leg syndrome Rosacea Scoliosis Surgical History (Last Reviewed 05/19/24 @ 07:04 by Sheeba Sanders MD) History of back surgery History of partial hysterectomy History of repair of left rotator cuff History of repair of right rotator cuff 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) History of right breast biopsy 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 Activities of Daily Living and IADL's Assist for IADl needs. Prior Functional Level (Other details) Pt had a fall on 05/18/24 resulting in displaced right femoral neck. At this time Dr Gómez Palma states full weight bearing as tolerated. Looking to do surgery next week as awaiting component for sx to arrive. Pt's daughter plans on coming after work to stay and assist her and is home and able to assist as well. Social History Household Members spouse Living Arrangements House Number of Stairs To Enter/Railing? No steps to get in from the back and 20 steps to get there . Pt able to stay on the main level. Home Environment Standard Height Toilet,High Toilet,Walk in Shower Home Equipment Front Wheel Walker,Four Wheel Walker,Straight Cane,Shower Seat without Backrest,Hand Held Shower,Long Handled Sponge,Long Handled Shoe Horn, Thermal Cutting Tracer Machine Operator,Sock Aid,Grab Bars Near Toilet Additional Social History Comment Pt has a toilet safety frame. M2 OT-IP Current Condition Start: 05/19/24 11:26 Freq: Status: Active Protocol: Document 05/19/24 11:26 [facility] (Rec: 05/19/24 11:44 [facility] [id number]) Occupational Therapy Current Condition Current Condition Evaluation Date 05/19/24 Treatment Diagnosis Displaced right femoral fx with screw fixation failure Diagnosis Onset Date 05/18/24 M3 OT- IP Subjective and Pain Start: 05/19/24 11:26 Freq: Status: Active Protocol: Document 05/19/24 11:26 [facility] (Rec: 05/19/24 11:44 [facility] [id number]) OT- Subjective Occupational Therapy Visit Type Type Initial Evaluation Visit Start Time 10:31 Visit Stop Time 11:17 Occupational Therapy Visit Comments Patient Comments Pt agreed to get up. Patient/Caregiver Goals To go home. OT Pain Assessment Pain When Pain Assessed At Rest Pain Present Pain Present Pain Reported Location Right groin Intensity 6 Scale Used Numeric (0 - 10) M4 OT- IP ADL's Start: 05/19/24 11:26 Freq: Status: Active Protocol: Document 05/19/24 11:26 [facility] (Rec: 05/19/24 11:44 [facility] [id number]) OT TSS-Tbwm-[place] General Evaluation Self-Feeding Ability Standby Assistance Areas Needing Assistance Opening Containers Comments OT Self-Feeding Comments set-up assist OT ADL-Grooming General Evaluation Grooming Ability Standby Assistance Areas Needing Assistance Retrieving/Set-up of Grooming Items Comments OT Grooming Comments Set-up assist while seated. Pt uses her left arm to hold her right elbow so able to brush her hair. OT ADL-Oral Care General Eval Oral Care Ability Independent Areas of Assistance Retrieving/Set-Up of Items OT ADL-Dressing General Eval Lower Body Dressing Ability Maximum Assistance Areas Needing Assistance Socks Comments OT Dressing Comments At this time pt will need use of her LB dressing equipment and assist at home. OT ADL-Toileting General Evaluation Toileting Ability Total Assistance Areas Needing Assistance Empty Catheter or Colostomy Comments OT Toileting Comments Dove in place. Pt would benefit from a BSc at home to use, is addition to wearing pads/brief. OT ADL-Bathing Comments OT Bathing Comments Not performed, pt will need assist at home. M5 OT- IP IADL's Start: 05/19/24 11:26 Freq: Status: Active Protocol: Document 05/19/24 11:26 [facility] (Rec: 05/19/24 11:44 [facility] [id number]) OT-Instrumental Activities of Daily Living Deficits IADL Deficits Identified Deficits Home Safety Awareness Awareness of Need for Assistance at Home Good Awareness Ability to Problem Solve Emergency Able to Problem Solve Situations Meal Preparation Meal Preparation Caregiver Provides Assist Certified Detention Deputy Certified Detention Deputy Caregiver Provides Assist M6 OT- IP Functional Cognition Start: 05/19/24 11:26 Freq: Status: Active Protocol: Document 05/19/24 11:26 [facility] (Rec: 05/19/24 11:44 [facility] [id number]) Cognitive Factors Limiting Selfcare Function Cognitive Ability Level of Alertness Alert Patient Orientation Name,Age,Birthday,Month,Date, Year,Day of Week,Place, Situation Attention Span Ability Capable of Focused Attention, Capable of Sustained Attention Ability to Follow Commands Able to Follow One Step Commands Cognitive Comments Cognitive Assessment Comments Pt able to follow commands for mobility and ADL needs. OT- Vision and Hearing OT- Hearing Assessment OT- Hearing Assessment Hearing Impaired,Use of Hearing Aids OT- Vision Assessment Visual Acuity Glasses All The Time Visual Attentiveness WFL Occular Pursuits WFL M7 OT- IP Mobility and Balance Start: 05/19/24 11:26 Freq: Status: Active Protocol: Document 05/19/24 11:26 [facility] (Rec: 05/19/24 11:44 [facility] [id number]) OT- Bed Mobility Assessment Supine to Sit Supine to Sit Assist Minimal Assistance OT-Transfer Assessment Sit to and From Stand Sit to and from Stand Minimal Assistance Transfers Transfer Ability Minimal Assistance Technique Transfer Destination Bed,Chair Transfer Technique Stand Step Pivot Devices Transfer Assistive Devices Gait Belt,Front Wheeled Walker Comments Mobility Comments MARCO A to assist the RLE to the edge of the bed. MARCO A to stand from hospital bed , MARCO A with FWW to transfer to the recliner. Pt heavily relies on her BUE so able to move her LLE due to RLE pain. Pt will greatly benefit from use of wc at home and FWW for just transfers at this time. Pt sleeps in a recliner at home. OT- Balance Assessment Sitting Balance and Reactions Static Sitting Balance Ability Good Dynamic Sitting Balance Ability Fair Standing Balance and Reactions Static Standing Balance Ability Fair Dynamic Standing Balance Ability Poor M8 OT- IP Objective Assessments Start: 05/19/24 11:26 Freq: Status: Active Protocol: Document 05/19/24 11:26 [facility] (Rec: 05/19/24 11:44 [facility] [id number]) OT Gross Range of Motion Upper Extremity Range of Motion Assessment Bilaterally Impaired OT Strength Upper Extremity Strength Assessment Bilaterally Impaired Comments Strength Comments 3-/5 to 3+/5 OT- Coordination Assessment Comments Coordination Comments Arthritic changes in hands, needing set-up assist for needs. M9 OT- IP Assessment and Plan Start: 05/19/24 11:26 Freq: Status: Active Protocol: Document 05/19/24 11:26 [facility] (Rec: 05/19/24 11:44 [facility] [id number]) OT Summary Assessment and Plan Potential Rehabilitation Potential Good Analytic Complexity at Evaluation Moderate Summary OT Impairments Pain,Strength,Balance, Functional Mobility,Grooming, Dressing,Toileting,Bathing, Toilet Transfers,Shower Transfers,Activity Tolerance Progress Towards Goals Slow Progress due to Medical Issues,Slow Progress due to Activity Tolerance Assessment Summary Pt MOD complexity and main barriers are pain, and now needing more assist with ADL and mobility needs. Pt has right displaced femoral neck fx with screw fixation failure and to await surgery next week. Dr. Palma states in his note that pt is full WB as tolerated. Pt to go home with 24/7 assist and benefit from getting a BSC and WC. Goals Dressing Goal Moderate Assistance,Thermal Cutting Tracer Machine Operator, Sock Aid Toileting Goal Minimal Assistance Bathing Goal Minimal Assistance Toilet Transfer Goal Standby Assistance Shower Transfer Goal Contact Guard Assistance Days to Meet Goals 3 Frequency of Treatment Frequency Of Treatment Once a Day Other frequency 5x/week Treatment Plan OT Treatment Plan ADL Training,Functional Mobility,Patient/Family Education,Discharge Planning Discharge Recommendations OT Discharge Recommendations Home with 24/7 Assist Available Home Equipment Needs BSC,WC Transportation Needs at Discharge Private Vehicle
--- NOTE | 2024-05-19 11:52 | CM.DANOTE ---
DCP Assessment Note: Pt is a 83yo female, resident of [place], is admitted for a fall which resulted in a R Hip fracture. Pt lives in a house with her spouse, Luis Daniel. Pt's Primary Care Provider is Dr. Lawrence Morin and insurance is Medicare and [employer]. Reviewed chart and team rounds for pt's medical status and initial discharge needs. DCP met w/patient at bedside; introduced self and role. Patient was found sitting up in chair, alert and oriented, cooperative with assessment. Pt confirmed living situation and good support in , daughter lives in [place] but will be driving over this weekend and staying with pt for initial care needs. Pt expressed preference in returning home until her tentatively scheduled surgery on Wednesday, 05/23. Patient denied any other discharge needs at this time, declined private caregiver list due to daughter arriving soon. Per OT, patient recommended to discharge home until surgery utilizing bedside commode, FWW and wheelchair. Patient has FWW at home, was provided DME list to acquire DMEs. Plan: Anticipating discharge home with spouse and daughter to support until tentative surgery on 05/23. No other discharge needs identified at this time. CM team will follow closely for coordination of discharge plans. MARTA Wade Discharge Planning/Care Management Advanced directive, confirm from FAMILY Start: 05/18/24 22:41 Freq: Q24H Status: Active Protocol: Document 05/18/24 22:41 FM (Rec: 05/18/24 22:42 FM [id number]) Advance Directive, confirm on record Time 22:42 Person contacted Patient Copy received No CM Discharge Assessment Start: 05/19/24 11:51 Freq: Status: Active Protocol: Document 05/19/24 11:51 MW (Rec: 05/19/24 11:52 MW [id number]) Discharge Planning Assessment Assigned Senior Budget Analyst IRINEO Miller DPOA/Assigned Designee Name Luis Daniel, Contact Information [phone] Advance Directives? Yes Advance Directives on File No History Provided By Patient,Medical Record Expected Length of Stay 1 Has Patient been admitted in last 30 No days? Prior Living Arrangements House Household Members spouse Type of transporation used prior to Drives own vehicle admit Independent with ADL's Yes Is patient alert and oriented? Yes Caregiver for Another No DME Already Rented / Owned FWW / Walker Patient/Family Preference Home with Home Health Discharge Plan Home Transportation Arrangement spouse Referrals Initiated None needed Whiteboard Updated in Patient Room with Yes name and ext. # of Senior Budget Analyst Comment [phone] Review Status In Process Please Provide Date Initial DC 05/19/24 Assessment Was Performed Next Review Type Continued Stay Review
--- NOTE | 2024-05-19 11:55 | PT.IIE ---
Current Diagnoses Age-related osteoporosis with current pathological fracture, right femur, initial encounter for fracture (05/18/24) Fracture of unspecified part of neck of right femur, initial encounter for closed fracture (05/18/24) Surgery Performed Operation Date: 05/23/24 07:45 <No data on this case meets the specified criteria> Surgical History (Last Reviewed 05/19/24 @ 07:04 by Sheeba Rea MD) History of back surgery History of partial hysterectomy History of repair of left rotator cuff History of repair of right rotator cuff 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) History of right breast biopsy 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) Hx of arthroscopy of right knee Hx of bilateral cataract extraction Hx of tonsillectomy Medical History (Last Reviewed 05/19/24 @ 07:04 by Sheeba Rea MD) Arthritis Back pain Diverticulosis GERD (gastroesophageal reflux disease) History of COVID-19 (08/2022) [place] (hard of hearing) Migraines Numbness Osteoporosis Restless leg syndrome Rosacea Scoliosis Physical Therapy Inpatient Evaluation/Re-Eval M1 PT/OT-IP Prior Functional Status Start: 05/19/24 13:48 Freq: NEEDED Status: Active Protocol: Document 05/19/24 13:49 AB (Rec: 05/19/24 14:09 AB [id number]) Medical Review Prior Functional Status Medical History Reviewed Yes Communication able to make needs known Mobility and Gait pt stated that she was modified independent with all mobilities and ambulation using fWW Activities of Daily Living and IADL's per OT note: Assist for IADl needs. Social History Household Members spouse Living Arrangements House Number of Floors (Floors) Two Floors Number of Stairs To Enter/Railing? pt stays on main level of [facility] no steps to enter Home Environment High Toilet,Walk in Shower Home Equipment Front Wheel Walker,Four Wheel Walker,Straight Cane,Shower Seat with Backrest,Hand Held Shower,Grab Bars In Shower Additional Social History Comment pt with toilet safety frame pt lives with spouse who can assist pt but daughter also will be staying with pt for a few days to assist. pt lives in [place] and will be driving today after work pt stated that she has been sleeping on her recliner and plans to continues sleeping on it upon d/c M2 PT-IP Current Condition Start: 05/19/24 13:48 Freq: NEEDED Status: Active Protocol: Document 05/19/24 13:49 AB (Rec: 05/19/24 14:09 AB [id number]) Physical Therapy Current Condition Current Condition Evaluation Date 05/19/24 Treatment Diagnosis R hip fx; difficulty in walking Onset Date 05/18/24 M3 PT-IP Subjective Start: 05/19/24 13:48 Freq: NEEDED Status: Active Protocol: Document 05/19/24 13:49 AB (Rec: 05/19/24 14:09 AB [id number]) Subjective Physical Therapy Visit Type Type Initial Evaluation Visit Start Time 11:55 Visit Stop Time 12:50 Notes upon EMR review: Dr. rea' s note: NWB/ touch down weight bearing on RLE. pt evaluated and initially followed NWB/ TTWB. spoke with nurse and stated that Dr. aPlma saw pt earlier today and stated that pt is WBAT RLE. checked back on pt and assessed mobility WBAT on RLE afterwards. plan is pt to go home until R hip sx next wednesday Number of STAFFING ASSISTANT Visits 0 Physical Therapy Visit Comments Patient Comments agreeable to do PT Therapy Pain Assessment Pain When Pain Assessed During Mobility Pain Present Pain Present Pain Reported Location Right hip Intensity 7 Scale Used Numeric (0 - 10) Pain Management Techniques Apply Cold,Distraction, Modification of Treatment,Re- positioning,Timing of Activity with Medications M4 PT-IP Mobility and Gait Start: 05/19/24 13:48 Freq: NEEDED Status: Active Protocol: Document 05/19/24 13:49 AB (Rec: 05/19/24 14:09 AB [id number]) PT-Transfer Assessment Sit to and From Stand Sit to and from Stand Minimal Assistance,Maximum Assistance,1 Person Assistance ,Use of Upper Extremities Equipment Transfer Assistive Device Gait Belt,Front Wheeled Walker Orthotic/Prosthetic Devices or Brace: No Transfers Transfer Destination Bed,Chair Transfer Technique Stand Step Pivot Transfer Ability Level of Assist Minimal Assistance,Maximum Assistance,1 Person Assistance ,Use of Upper Extremities Comments Mobility Comments pt sitting on the chair and agreed to do PT. obtained PLOF and home set up from pt. EMR reviewed prior to seeing pt. informed nurse to change bed rest order and completed. at the time of EMR review, pt was NWB or touch down weight bearing per Dr. Streeter's note. informed pt regarding doctor's order. educated pt regarding NWB vs touch down weight bearing on RLE. pt completed sit to stand from chair max A and max cues. needed assist to maintain NWB on RLE. attempted ambualtion using FWW but only able to take 2 steps max A and max cues and unable to maintain NWB/TTWB on RLE. (+) LOB to the L and posteriorly needing max A for stability. pt instructed to step transfer to EOB and completed max A and max cues. pt rested. educated on how to maintain weight bearing restriction. pt completed sit to stand from EOB max A and cues and step trasnfer to chair using fWW max A and max cues. positioned pt on the chair. informed pt regarding level of assistance needed at this time. talked with nurse and informed regarding pt's level of assistance needed and unable to maintain weight bearing restriction. nurse informed that Dr. Palma just saw pt this morning and stated that pt is WBAT on RLE. Rechecked EMR and new note from Dr. Palma is WBAT on RLE. Checked back on pt and informed pt regarding change in weight bearing status. assess pt's mobility again. pt completed sit to stand from the chair min A and cues and ambulated in room using FWW min A and cues ~ 20 ft. presents with antalgic gait and c/o increase R hip pain. pt sat back on chair. positioned pt on the chair. setup for lunch. call light and table placed within reach. Gait Assessment Gait Gait Assistance Required: Minimum Assistance,Maximum Assistance Distance (Feet) 20 Able to Maintain Weight Bearing Status Yes During Gait Assistive Devices Assistive Device Gait Belt,Front Wheeled Walker Orthotic/Prosthetic Devices or Brace: No Gait Deviations General Gait Pattern Antalgic,Decreased Stride Length,Decreased Feet Clearance Factors Limiting Gait Function Factors Limiting Gait Function Decreased Strength,Difficulty Following Directions,Limited Range of Motion,Pain,Poor Balance,Poor Safety Awareness PT-Balance Assessment Sitting Balance and Reactions Static Sitting Balance Ability Good Dynamic Sitting Balance Ability Fair Standing Balance and Reactions Static Standing Balance Ability Fair Dynamic Standing Balance Ability Fair Device Used FWW M5 PT-IP Objective Assessments Start: 05/19/24 13:48 Freq: NEEDED Status: Active Protocol: Document 05/19/24 13:49 AB (Rec: 05/19/24 14:09 AB [id number]) Orientation Orientation/Cognition Level of Alertness Alert Orientation Name,Place,Situation Language Function Ability No Deficits Noted Safety Awareness Decreased Safety Awareness Memory Description No Deficits Noted Gross Range of Motion Upper Extremity ROM Assessment Right Impaired Impairments pain withe RLE movement Strength Lower Extremity Strength Assessment Right Impaired Hip 2+/5 Knee 3+/5 Muscle Tone Muscle Tone WNL Yes M6 PT-IP Treatment Start: 05/19/24 13:48 Freq: NEEDED Status: Active Protocol: Document 05/19/24 13:49 AB (Rec: 05/19/24 14:09 AB [id number]) Physical Therapy Treatment Education Education Provided Weight Bearing Status,Safety M7 PT-IP Assessment and Plan Start: 05/19/24 13:48 Freq: NEEDED Status: Active Protocol: Document 05/19/24 13:49 AB (Rec: 05/19/24 14:09 AB [id number]) PT Summary Assessment and Plan Potential Rehabilitation Potential Fair Status of Condition at Evaluation Evolving Summary Impairments Pain,ROM,Strength,Balance, Coordination,Sensation,Tone, Cognition,Bed Mobility, Transfers,Gait,Activity Tolerance Assessment Summary pt is an 83 y/o F s/p fall and sustain a R hip fx. pt plans to have R hip sx this wednesday and will d/c home until then. per dr. Palma: RLE WBAT. pt requiring min A and max cues with mobility using fWW. pt plans to have her spouse and daughte assist her. will continue to assess. when appropriate, will conduct caregiver training. Goals Bed Mobility Goal Independent Transfer Goal Independent,Front Wheeled Walker Gait Goal Independent,Front Wheel Walker Gait Distance 100 Days to Meet Goals 10 Frequency of Treatment Frequency Of Treatment Once a Day Treatment Plan Physical Therapy Treatment Plan Bed Mobility Training,Transfer Training,Gait Training, Therapeutic Exercise,Balance Retraining,Post Op Education, Discharge Planning,Hot or Cold Pack,Neuromuscular Re-ed, Coordination Retraining,Manual Therapy Weight Bearing Status Weight Bearing Status Weight Bear as Tolerated Allowed Weight Bearing Amount (enter % RLe WBAT or #) (%) Recommendations To Nursing Amount of Assist Needed 1 Person Assist Discharge Recommendations PT Discharge Recommendations Home with 12/04 Assist Available,Home Health,SNF Rehab,Home vs SNF Equipment Needed for Home Before w/c Discharge Transportation Needs at Discharge Wheelchair/Cabulance
[2024-05-19] MEDS: OXYCODONE ER 20 MG TAB PO ×2 (14:20→21:16)
--- NOTE | 2024-05-19 15:33 | P.PN_ITS ---
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 Appreciate orthopedics consultation. Started patient on extended release oxycodone today with improvement in pain control. Therapy would like her to have assistance going home, unable to be cared for reliably by . Daughter is coming this evening, possibly staying the weekend. Current plan is for surgical repair next Wednesday. Plan is to reassess tomorrow with family to see if she can safely go home with additional family support coming this evening. Exam Vital Signs (past 8 hours): - 05/19/24 08:00 Temperature 97.3 F L Pulse Rate 80 Respiratory Rate 16 Blood Pressure 149/68 H Pulse Oximetry 95 Oxygen Delivery Method Room Air Oxygen Flow Rate 0 Narrative Exam Narrative: Gen: NAD, WDWN CV: RRR Abd: S NT ND Ext: no edema Objective Labs 05/18/24 20:34 05/19/24 08:15 Labs: Laboratory Results - last 24 hr 05/18/24 05/18/24 05/19/24 20:34 23:15 08:15 WBC 9.5 RBC 3.81 L Hgb 11.4 L Hct 34.2 L MCV 89.7 MCH 29.9 MCHC 33.4 RDW 14.2 Plt Count 312 Neut % (Auto) 73.1 Lymph % (Auto) 15.1 L [place] % (Auto) 9.5 Eos % (Auto) 1.9 L Baso % (Auto) 0.4 Neut # (Auto) 6900 Lymph # (Auto) 1400 [place] # (Auto) 900 Eos # (Auto) 200 Baso # (Auto) 0 Sodium 128 L 132 L Potassium 4.2 4.1 Chloride 96 L 102 Carbon Dioxide 24 25 BUN 17 11 Creatinine 0.53 0.49 L Estimated GFR > 60 > 60 BUN/Creatinine Ratio 32.1 H 22.4 H Glucose 106 111 H Calcium 9.3 8.7 Nasal Screen MRSA (PCR) Not detected PFSH Medical History History of COVID-19 (08/2022) Rosacea Osteoporosis Arthritis Scoliosis Diverticulosis GERD (gastroesophageal reflux disease) Back pain [place] (hard of hearing) Numbness Migraines Restless leg syndrome Surgical History 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 Pathologic secondary to osteoporosis. - pain control currently with oxycodone ER, IR for as needed relief with better control today. - continue PT/OT - plan is for surgery Wednesday 2. Chronic opiate dependence - patient on chronic opiate therapy for her severe scoliosis and prior joint and spine surgeries. - pain control improved with new fracture as noted above. 3. Mild hyponatremia - continue to follow BMP, encourage PO intake at this time. 4. Elevated BP without a diagnosis of THN - likely elevated due to acute pain. No therapy indicated at this time, continue to work on pain control for now. Code: Full, surrogate is patient's spouse DVT: Lovenox daily I have utilized all available immediate resources to obtain, update, or review the patient's current medications. Dispo: patient admitted under inpatient status. Unclear if will be able to discharge home or possible SNF, will have PT/OT evaluations. Additional history obtained via discussions with the overnight provider and orthopedic surgery team, bedside RN, and case management. These discussions contributed to the creation of the above assessment and plan. I have reviewed patient's presenting documentation, labs, and imaging personally. Time-Based Coding :: [TOTAL MINUTES] spent with patient and on the chart (including review of chart, obtaining history, exam, reviewing outside data, placing orders, documenting exam and treatment plan, and counseling patient) on [DATE]. Quality VTE Deep Vein Thrombosis/Pulmonary Embolism Present on Admission: No
[2024-05-19 19:00] VITALS: BP 144/65; PULSE 90; RESP 20; TEMP 36; O2SAT 95
[2024-05-20 08:00] VITALS: BP 135/63; PULSE 87; RESP 16; O2SAT 98
--- NOTE | 2024-05-20 08:02 | PM.DS.1 ---
History of Present Illness History of Present Illness Date Patient Seen: 05/20/24 Chief complaint: fall r hip Narrative: 83 years old female with osteoarthritis and multiple orthopedic surgeries presented to the ER after ground-level fall at home after she lost her balance. The patient has multiple falls in the past and multiple orthopedic surgeries, last 1 was in November for left knee replacement. She also had reversal of total shoulder arthroplasty. Reported chronic dizziness and loss of balance. Denies any loss of consciousness, head injury, chest pain prior to the event. In the ER she was consulted with orthopedic surgery and was decided to be admitted for further management. Discharge Providers Provider Date of admission: 05/18/24 21:08 Discharge Date: 05/20/24 Primary care physician: Lawrence Morin MD Consults: 05/18/24 20:59 Consult to Orthopedic Surgery Stat Comment: Consulting Provider: Sheeba Sanders Reason for consultation: hip fracture Has provider been notified: Yes 05/18/24 21:13 Consult to Discharge Planning Routine Comment: Consult to Occupational Therapy Evaluate & Treat Comment: Physician Instructions: Evaluate and treat Consult to Physical Therapy Evaluate & Treat Comment: Physician Instructions: Evaluate and Treat Discharge provider: Leana Beck MD Summary Hospital Course Hospital Course: 1. 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 Pathologic secondary to osteoporosis. - pain control currently with oxycodone ER, IR for as needed relief with better control today. - plan is for return to for hip replacement surgery Wednesday 2. Chronic opiate dependence - patient on chronic opiate therapy for her severe scoliosis and prior joint and spine surgeries. - pain control improved with new fracture as noted above. 3. Mild hyponatremia - Na 132 on 05/19/24 4. Elevated BP without a diagnosis of THN - likely elevated due to acute pain. Status at Discharge Cognitive/behavioral status at discharge: at baseline, oriented Functional status at discharge: wheelchair bound Overall status at discharge: patient is not back to baseline Exam Vital Signs (past 8 hours): Oxygen Delivery Method Room Air Oxygen Flow Rate 0 Narrative Exam Narrative: She is alert and oriented x3. No apparent distress. Heart is regular rate and rhythm without murmur. Lungs are clear to auscultation bilaterally. Extremities have no ankle edema. The right hip tenderness is mild. Objective Labs 05/18/24 20:34 05/20/24 09:30 Labs: Laboratory Results - last 24 hr 05/19/24 08:15 Sodium 132 L Potassium 4.1 Chloride 102 Carbon Dioxide 25 BUN 11 Creatinine 0.49 L Estimated GFR > 60 BUN/Creatinine Ratio 22.4 H Glucose 111 H Calcium 8.7 PFSH Medical History History of COVID-19 (08/2022) Rosacea Osteoporosis Arthritis Scoliosis Diverticulosis GERD (gastroesophageal reflux disease) Back pain [place] (hard of hearing) Numbness Migraines Restless leg syndrome Surgical History 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) Hx of arthroscopy of right knee Hx of tonsillectomy History of right breast biopsy History of partial hysterectomy Hx of bilateral cataract extraction History of repair of right rotator cuff History of repair of left rotator cuff History of back surgery Social History household members: spouse Smoking Status: Never smoker alcohol intake: current Discharge Assessment & Plan Assessment and Plan Plan of Treatment: Per orthopedic surgery this type of injury/hip fixation failure with this amount of pain is typically managed as outpatient so she will be going home and returning for surgery in 2 more days. Discharge Plan Discharge Plan Patient Disposition: Home Provider Discharge Comment: Return on WednesdayMay 23 per Orthopedics for hip replacement surgery. Time to be determined. Discharge orders & Medications Prescriptions: New lidocaine 5 % Adhesive Patch,Medicated 1 patch topical BEDTIME Qty: 10 0RF oxycodone 10 mg Tablet 10 mg PO Q4HR PRN (Reason: Pain, Severe (7-10)) Qty: 30 0RF oxycodone [OxyContin] 20 mg Tablet,Oral Only,Ext.Rel.12 Hr 20 mg PO Q8HR Qty: 10 0RF baclofen 5 mg tablet 5 mg PO .tid prn Qty: 20 0RF Continued alendronate [Fosamax] 70 mg Tablet 70 mg PO QWEEK oxycodone 5 mg Tablet 5 mg PO Q4-6H PRN (Reason: Pain, Moderate (4-6)) Qty: 60 0RF acetaminophen 500 mg Tablet 500 mg PO QID ondansetron 4 mg tablet,disintegrating 4 mg PO Q8H PRN (Reason: nausea and vomiting) Qty: 7 1RF naloxone [Narcan] 4 mg/actuation spray,non-aerosol 4 mg intranasal Q3M PRN (Reason: opioid overdose) Qty: 2 0RF Rx Instructions: spray 1 dose into ONE nostril; alternate nostrils w each dose until help arrives pramipexole 0.5 mg Tablet 0.5 mg PO BID PRN (Reason: RLS) gabapentin 300 mg Capsule 300 mg PO QID cyclobenzaprine 10 mg tablet 10 mg PO TID PRN (Reason: muscle spasm) Qty: 30 0RF aspirin 81 mg tablet,delayed release (DR/EC) 81 mg PO BID Qty: 42 0RF Follow up/Referrals: Lawrence Morin MD [Primary Care Provider] - Visit Report/Discharge Packet Stand Alone Forms: Patient Portal/API, Stroke Signs & Symptoms Discharge Data Primary Care Provider: Lawrence Morin Quality VTE Deep Vein Thrombosis/Pulmonary Embolism Present on Admission: No
[2024-05-20] MEDS: LIDOCAINE 5% PATCH 1 EACH TOP (08:29)
[2024-05-20] MEDS: ACETAMINOPHEN 325 MG TABLET PO ×2 (08:29→13:16)
[2024-05-20] MEDS: GABAPENTIN 300 MG CAPSULE PO ×2 (08:30→13:16)
[2024-05-20] MEDS: HEPARIN 5,000 UNIT/ML VIAL 5000 UNIT SUBCUT (08:30)
[2024-05-20 09:51] LABS: Blood Urea Nitrogen 13 mg/dL (7-17); Calcium 9.1 mg/dL (8.4-10.2); Carbon Dioxide 27 mmol/L (22-32); Chloride 99 mmol/L (98-107); Estimated Glomerular Filt Rate > 60 mL/min (>60); Glucose 132 mg/dL (80-110); HEMOLYSIS < 15 (0-50); Potassium 3.9 mmol/L (3.4-5.1); Sodium 134 mmol/L (137-145)
[2024-05-20] MEDS: OXYCODONE IR 10 MG TABLET PO (10:16)
[2024-05-20] MEDS: CYCLOBENZAPRINE 10 MG TABLET PO (10:55)
--- NOTE | 2024-05-20 11:30 | PT.IPTN ---
Current Diagnoses Age-related osteoporosis with current pathological fracture, right femur, initial encounter for fracture (05/18/24) Fracture of unspecified part of neck of right femur, initial encounter for closed fracture (05/18/24) Surgery Performed Operation Date: 05/23/24 07:45 <No data on this case meets the specified criteria> Physical Therapy Treatment Note M2 PT-IP Current Condition Start: 05/19/24 13:48 Freq: NEEDED Status: Active Protocol: Document 05/19/24 13:49 AB (Rec: 05/19/24 14:09 AB [id number]) Physical Therapy Current Condition Current Condition Evaluation Date 05/19/24 Treatment Diagnosis R hip fx; difficulty in walking Onset Date 05/18/24 M3 PT-IP Subjective Start: 05/19/24 13:48 Freq: NEEDED Status: Active Protocol: Document 05/20/24 12:01 TS (Rec: 05/20/24 12:09 TS [id number]) Subjective Physical Therapy Visit Type Type Treatment Note Visit Start Time 11:30 Visit Stop Time 11:59 Number of WARD ATTENDANT Visits 1 Physical Therapy Visit Comments Patient Comments Pt found resting in chair, reports high pain sitting in chair in R leg. She had some pain medication about an hour ago. She is agreeable to PT. Therapy Pain Assessment Pain When Pain Assessed During Mobility Pain Present Pain Present Pain Reported M4 PT-IP Mobility and Gait Start: 05/19/24 13:48 Freq: NEEDED Status: Active Protocol: Document 05/20/24 12:01 TS (Rec: 05/20/24 12:09 TS [id number]) PT-Transfer Assessment Sit to and From Stand Sit to and from Stand Minimal Assistance,1 Person Assistance,Use of Upper Extremities Equipment Transfer Assistive Device Gait Belt,Front Wheeled Walker Orthotic/Prosthetic Devices or Brace: No Comments Mobility Comments STS with FWW [place] from chair, pt cued for pushing from arms of chair and LLE underneath her. She ambulated ~15'ModA with FWW. Pt uses heavy UE assist for ambulation on FWW, has a slow step to gait. Pt was left in chair, nursing notified. Gait Assessment Gait Gait Assistance Required: Moderate Assistance,1 Person Assist Distance (Feet) 15 Able to Maintain Weight Bearing Status Yes During Gait Assistive Devices Assistive Device Gait Belt,Front Wheeled Walker Orthotic/Prosthetic Devices or Brace: No Gait Deviations General Gait Pattern Antalgic,Decreased Stride Length,Decreased Feet Clearance Factors Limiting Gait Function Factors Limiting Gait Function Decreased Strength,Difficulty Following Directions,Limited Range of Motion,Pain,Poor Balance,Poor Safety Awareness PT-Balance Assessment Sitting Balance and Reactions Static Sitting Balance Ability Good Dynamic Sitting Balance Ability Fair Standing Balance and Reactions Static Standing Balance Ability Fair Dynamic Standing Balance Ability Fair Device Used FWW M5 PT-IP Objective Assessments Start: 05/19/24 13:48 Freq: NEEDED Status: Active Protocol: Document 05/19/24 13:49 AB (Rec: 05/19/24 14:09 AB [id number]) Orientation Orientation/Cognition Level of Alertness Alert Orientation Name,Place,Situation Language Function Ability No Deficits Noted Safety Awareness Decreased Safety Awareness Memory Description No Deficits Noted Gross Range of Motion Upper Extremity ROM Assessment Right Impaired Impairments pain withe RLE movement Strength Lower Extremity Strength Assessment Right Impaired Hip 2+/5 Knee 3+/5 Muscle Tone Muscle Tone WNL Yes M6 PT-IP Treatment Start: 05/19/24 13:48 Freq: NEEDED Status: Active Protocol: Document 05/20/24 12:01 TS (Rec: 05/20/24 12:09 TS [id number]) Physical Therapy Treatment Education Education Provided Weight Bearing Status,Safety M7 PT-IP Assessment and Plan Start: 05/19/24 13:48 Freq: NEEDED Status: Active Protocol: Document 05/20/24 12:01 TS (Rec: 05/20/24 12:09 TS [id number]) PT Summary Assessment and Plan Potential Rehabilitation Potential Fair Summary Impairments Pain,ROM,Strength,Balance, Coordination,Sensation,Tone, Cognition,Bed Mobility, Transfers,Gait,Activity Tolerance Progress Towards Goals Slow Progress due to Pain Assessment Summary Job is making slow progress with her mobility. She requires ModA for STS with use of FWW. She continues to ambulate in the room short distances with ModA and use of FWW. Pt was educated on use of gait belt at home and would benefit from a w/c. PT is recommending Home vs SNF. Goals Bed Mobility Goal Independent Transfer Goal Independent,Front Wheeled Walker Gait Goal Independent,Front Wheel Walker Gait Distance 100 Days to Meet Goals 10 Frequency of Treatment Frequency Of Treatment Once a Day Treatment Plan Physical Therapy Treatment Plan Bed Mobility Training,Transfer Training,Gait Training, Therapeutic Exercise,Balance Retraining,Post Op Education, Discharge Planning,Hot or Cold Pack,Neuromuscular Re-ed, Coordination Retraining,Manual Therapy Weight Bearing Status Weight Bearing Status Weight Bear as Tolerated Allowed Weight Bearing Amount (enter % RLe WBAT or #) (%) Discharge Recommendations PT Discharge Recommendations Home with 12/04 Assist Available,Home Health,SNF Rehab,Home vs SNF Equipment Needed for Home Before w/c Discharge Transportation Needs at Discharge Wheelchair/Cabulance
[2024-05-20] MEDS: OXYCODONE ER 20 MG TAB PO (13:17)
--- NOTE | 2024-05-20 13:35 | CM.DPC ---
DCP Discharge Home Per MD, pt medically stable to d/c home today if family able to assist as needed at home while awaiting Ortho hip surgery to repair her complex hip fx once needed hardware arrives from [place] on 05/23/24. Per MANAGER CODE, worked with pt today and provided caregiving information to family and pt able to WBAT with FWW for mobility and family able to provide the assist needed for d/c today. SW met bedside with pt, spouse, Dtr and son in law (who arrived from [facility] to stay and assist) and they confirm they are agreeable with pt d/c home today and updated per [facility] that pt currently on the schedule for 0705/23/24. RN provided discharge instructions and Pt taken to Dtr POV via w/c and they will return for her surgery Wednesday. Mary Valdes, [employer]
[2024-05-23 07:29] VITALS: BMI 24.3
--- NOTE | 2024-05-23 07:45 | PM.PREOP ---
Pre-operative Note Interval Note History & Physical reviewed/Exam performed by Physician: Yes Changes to H&P: No
--- NOTE | 2024-05-23 07:46 | PM.PREOP ---
Pre-operative Note Interval Note History & Physical reviewed/Exam performed by Physician: Yes Changes to H&P: No
== END 2024-05-20 13:40 | disposition home or self-care (01) | DRG 543 ==
LOC: ED 21:05 → AC 21:09 → ICU 21:26
PROVIDERS: Admitting Provider Internal Medicine; Emergency Provider Emergency Medicine; Family Provider Family Medicine; PCP Family Medicine; Referring Provider Emergency Medicine; Visit Provider Internal Medicine
DX: M80.051A Age-related osteoporosis with current pathological fracture, right femur, initial encounter for fracture (principal); E87.1 Hypo-osmolality and hyponatremia; M87.9 Osteonecrosis, unspecified; F11.20 Opioid dependence, uncomplicated; M41.9 Scoliosis, unspecified; R03.0 Elevated blood-pressure reading, without diagnosis of hypertension; K21.9 Gastro-esophageal reflux disease without esophagitis; Z98.1 Arthrodesis status; Z98.890 Other specified postprocedural states; Z91.81 History of falling
CPT/HCPCS: 36415; 73502; 80048; 85025; 87797; 97162; 97166; 97530; 97535; 99283; 99285; J1170; J1644

== ENCOUNTER 2024-05-23 06:53 | Inpatient (IN) | payer MEDICARE, OTHER, SELFPAY ==
[2024-05-18 21:20] VITALS: BMI 24.3
[2024-05-23] VITALS (13 sets, daily range): BP systolic 80–124; BP diastolic 42–63; PULSE 74–97; RESP 12–21; TEMP 36.1–36.7; O2SAT 94–100; BMI 24.3
--- NOTE | 2024-05-23 | DI.RAD.S_ITS ---
PROCEDURE: XR HIP W PEL IF DONE RT 4V INDICATIONS: TOTAL RIGHT HIP ANTERIOR TECHNIQUE: Fluoroscopic guidance utilized for a right total hip arthroplasty placement COMPARISON: None. FINDINGS: Fluoroscopic images submitted for a right total hip arthroplasty placement. Please see operative note for further discussion. IMPRESSION: Fluoroscopic guidance. Dictated by: Foreign Rodriguez M.D. on 05/23/2024 at 11:00 Approved by: Foreign Rodriguez M.D. on 05/23/2024 at 11:00
--- NOTE | 2024-05-23 07:39 | DI.RAD.S_ITS ---
PROCEDURE: XR HIP W PEL IF DONE RT 2V INDICATIONS: JOHN TECHNIQUE: AP pelvis and lateral view of the hip acquired. COMPARISON: [facility], CR, XR HIP W PEL IF DONE RT 4V, 05/23/2024, 9:43. FINDINGS: Bones: Patient is status post right hip arthroplasty, with hardware components in expected positions. The hip joint appears congruent. The visualized bony structures appear intact. Soft tissues: Overlying postoperative changes are noted. No suspicious soft tissue densities. IMPRESSION: Expected post-operative appearance of a hip arthroplasty. Approved by: Gregg Jacinto M.D. on 05/23/2024 at 18:13
[2024-05-23] MEDS: LACTATED RINGERS 1,000 ML 42 ML IV ×2 (07:48→10:25)
[2024-05-23] MEDS: MELOXICAM 7.5 MG TABLET 15 MG PO (07:49)
[2024-05-23] MEDS: CEFAZOLIN 2 GM/100 ML PREMIX 100 ML IV (08:00)
[2024-05-23] MEDS: TRANEXAMIC ACID 1,000 MG VIAL 1000 MG INJ ×2 (08:05→10:25)
[2024-05-23] MEDS: ACETAMINOPHEN IV 1,000 MG/100 ML VIAL 400 MG IV (08:10)
--- NOTE | 2024-05-23 08:34 | SUR.OPER ---
Patient supine on padded [place] table, one arm on padded arm board at <90, other arm padded and secured with tape across patient's chest, both legs secured in padded traction boots and positioned per surgeon, padded post at patient's groin, pressure points checked and padded.
[2024-05-23] MEDS: ROPIVACAINE/EPI/CLONIDINE/KET 50 ML SYRINGE INJ (08:38)
--- NOTE | 2024-05-23 10:28 | P.OP_ITS ---
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 Post-op diagnosis: same Procedure & Clinicians Procedure: Conversion of prior cannulated screw fixation of right femoral neck to cemented total hip arthroplasty through anterior approach with fixation of intraoperative femoral shaft fracture Same procedure as scheduled: Yes Surgeon: Gregg Palma Rear Load Truck Driver: Ave Gutierrez Anesthesia Type: General and Local Operative Notes Estimated Blood Loss (mL): 500 Procedure in detail: Conversion of Prior Right Femoral Neck Fracture Fixation to Right Hybrid Direct Anterior Dual Mobility Depuy Total Hip Arthroplasty with Uncemented Acetabular Component and Cemented Femoral Component and Fixation of Intraoperative Femoral Shaft Fracture with Cerclage Cabling: Implants: * [place] Bimentum size 51 cup? * C Stem femoral stem size 2 standard offset? * 28 mm +5 ceramic femoral head? * 51/28 dual mobility head * 3 cerclage cables Procedure Summary: This 83-year-old female patient underwent cannulated screw fixation of a displaced right femoral neck fracture at an outside hospital 3 months ago. 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 She returns today for definitive management of this. The surgery was complicated due to the following factors: 1. Her prior screw fixation required removal prior to proceeding with the total hip arthroplasty. Three cannulated screws and a washer were removed. Later in the procedure bone wax was placed to attempt to limit extrusion of cement out of that area. There was extruded cement discovered following component insertion which was removed 2. Her prior extensive lumbar fusion for scoliosis places her at increased risk of hip dislocation following hip replacement so a mono block dual mobility cup was utilized to maximize head size as well as jump distance 3. Her osteoporosis had resulted in her prior fracture and this was noted again during today's procedure. Because of this, cemented fixation was utilized rather than uncemented fixation. Some cement did extrude out the old cement holes and this was removed 4. Because it has been 3 months of limited weight-bearing since her fixation of her femoral neck fracture her bone was very weak and during reduction of the broach she sustained a displaced femoral shaft fracture. This was fixed in place with 3 cerclage cables after performing a sub vastus approach. Once cerclage cable was distal to the fracture. One was below the lesser trochanter. A 3rd was above the lesser trochanter. Procedure in Detail: This patient was seen preoperatively and evaluated for hip pain which was refractory to numerous nonoperative treatment modalities. Their hip pain correlated with radiographic changes demonstrating significant degeneration in the hip joint. The risks and benefits of continued nonoperative management versus operative management were discussed at length and all of the patient?s questions were answered. Additional educational materials providing further details beyond our discussion in clinic were provided via a publicly available patient education video which included the incidence of medical complications associated with total hip arthroplasty, reasons for revision following total hip arthroplasty, and patient satisfaction rates following total hip arthroplasty. That video can be accessed at [email or web address] . With this understanding of the risks inherent to the procedure, the patient elected to move forward with operative management. Following preoperative optimization, the patient was scheduled for surgery. The patient was met in the preoperative holding area the day of the procedure and all questions were answered. The patient?s nares were swabbed with betadine in order to decolonize them from MRSA. Informed consent was signed and the right limb was marked with indelible ink.? The patient was brought back to the operating room where anesthesia was induced. The patient was transferred to the [place] table and all bony prominences were padded. The operative site was prepped and draped in the usual sterile fashion. Prior to incision, tranexamic acid and cefazolin were administered. Operative templating images were displayed demonstrating the anticipated implant sizes and correct operative extremity. A timeout procedure was performed verifying the pat ient?s identity, medical comorbidities, allergies, relevant medications, anesthesia type and the surgical plan. All present were in agreement. The assistance of a physician assistant tennis professional was required for positioning, room setup, soft tissue retraction and wound closure. Without this assistance, the procedure would have been significantly more challenging and time consuming.?? I began the procedure by utilizing the old incision for her cannulated screw fixation and extending this proximally and distally. I used a screwdriver to remove the 3 screws as well as 1 washer from her proximal femur. I p rovisionally placed ash to limit hemostasis which were later removed. A direct anterior approach to the hip was utilized. This was performed with a longitudinal incision through a Heuter interval. The incision was planned 2 cm distal and 2 cm lateral to the ASIS extending towards the lateral patella, in line with the muscle body of the TFL. Following incision, the subcutaneous tissue was dissected while taking care to avoid injury to the lateral femoral cutaneous nerve. The fascia overlying the TFL was identified by dissecting off the overlying fat and identifying perforating vessels to the TFL. The TFL fascia was incised and dissected away from the medial border of the TFL. A cobra retractor was placed over the superior femoral neck between the abductors and the hip capsule and used to reflect the TFL laterally. A Hardy self-retainer was then placed in the distal aspect of the wound between the TFL and the rectus femoris. This was tensioned to open up the direct anterior interval and the lateral circumflex vessels were identified and coagulated using electrocautery. The floor of the TFL fascia was incised, exposing the pericapsular fat overlying the hip capsule. A second cobra retractor was placed on the inferior femoral neck. A double-bent soft tissue retractor was placed on the anterior wall of the acetabulum and used to tension the reflected head of rectus femoris, which was then released in order to limit soft tissue tension. A capsulotomy was made in the midline of the anterior hip capsule in line with the femoral neck ending at the vastus tubercle. The double-bent retractor was removed in order to limit the amount of time that a soft tissue retractor remained on the anterior wall and protect the femoral nerve. Tag stitches were placed in the superior and inferior leaflets of the hip capsule. An Wilian soft tissue retractor was introduced over the tag stitches and tensioned in the interval between the rectus femoris and the TFL in order to retract and protect those muscles. The cobra retractors were replaced intracapsularly, with one over the superior neck in the pocket created by the base of the greater trochanter and the other on the femoral head. The capsulotomy was extended laterally to the base of the greater trochanter and medially to the lesser trochanter. This required externally rotating the hip. Once the lesser trochanter had been identified, a neck cut was planned according to measurements from preoperative templating. A ruler was cut at the length measured between the superior aspect of the lesser trochanter and the collar of the prosthesis. This line was extended towards the inferior aspect of the lateral cobra retractor to plan a cut which would leave minimal residual femoral neck laterally. The neck was cut at 60 degrees of external rotation along that line. A second cut was performed to remove a large napkin ring and facilitate head extraction. The napkin ring cut and femoral head were removed.?? A broad anterior wall retractor was placed between the labrum and the anterior capsule so that the anterior capsule would prevent capturing and pinching the femoral nerve anteriorly. An additional retractor was placed on the posterior wall. External rotation and traction were applied through the [place] table so that the cut surface of the femoral neck would not restrict access to the acetabulum. The labrum was excised sharply and the pulvinar was excised with electrocautery to limit bleeding from branches of the obturator artery. Acetabular reamers were selected based on preoperative templating and measurements of the excised femoral head. These were introduced into the acetabulum. Fluoroscopy was utilized to replicate a standing AP pelvis radiograph by centering over the pelvis, rotating until there was appropriate symmetry between the obturator foramen, and introducing caudal tilt to match the position of the pubic symphysis relative to the sacrococcygeal junction according to the patient?s anatomy. Fluoroscopy was utilized to ensure appropriate reaming depth. Once satisfied with the reaming depth corresponding to the preoperative template and the pinch fit between the columns, an appropriate sized acetabular cup was selected which would provide 1 mm of press-fit. This cup was introduced and manipulated until appropriate abduction and anteversion angles were obtained with careful attention to appropriate abduction and anteversion angles as evaluated by the position of the cup relative to the anterior and posterior higginbotham of the acetabulum and the AP fluoroscopy which recreated the patient?s s tanding radiograph. The cup was impacted into place. Peripheral osteophytes were removed. The acetabular liner was then placed with care to ensure locking of the locking mechanism.? Attention was then turned to the femur. All retractors were removed, traction was released, a retractor was placed in the interval between the hip capsule and the gluteus minimus, and the hip was externally rotated to 90 degrees. Traction was applied through the [place] table to tension the lateral capsule and this was released using electrocautery. Traction was released and a [place] hook was placed posteriorly around the proximal femur at the level of the vastus ridge. The table height was lowered in order to restrict the tension on the anterior structures during hip hyperextension to limit the risk of femoral nerve palsy. With traction off and the hip at 90 degrees of external rotation, the hip was hyperextended and adducted while manually elevating the femur away from the acetabulum with the [place] hook to ensure it would not be caught behind the greater trochanter. An asymmetric retractor was placed over the calcar and a broad double-pronged retractor was placed over the greater trochanter. The tag stitch capturing the lateral leaflet of the capsule was moved to the medial side, leaving the conjoined and piriformis tendons isolated in the face of the greater trochanter. The hip was externally rotated and elevated. A release of the conjoined tendon was utilized in order to obtain adequate exposure for broaching. The canal was opened with an opening broach and a rasp was used to remove cancellous bone. A rongeur was used to remove the residual lateral bone at the base of the greater trochanter to avoid placing the stem in varus. The femur was then broached to the appropriate sized stem yielding good rotational fit and fill of the canal as well as appropriate version of the stem trial. Neck and head trials were placed, all retractors were removed and the hip was returned to neutral abduction and extension. I then reduced the hip. Initial trialing was performed with a size 2 broach, a standard offset neck and a +5 head. When I reduced the hip I felt it fracture. I could feel that this was a displaced fracture extending down into the shaft. I therefore extended the incision distally. There was some overlap with the prior incision for removal of the cannulated screws and a 5 cm skin bridge between these 2 areas. I extended my fascial incision down into a sub vastus approach and palpated the distal extent of the fracture. I placed a cerclage cable distal to the most distal extent of the fracture. I placed a another cerclage cable more proximally which closed down the fracture displacement. I placed a 3rd cerclage cable above the lesser trochanter to close down the displacement and the area as well. I placed bone wax over the holes from the cannulated screw removal. I then proceeded with trialing. I initially manually externally rotated the hip and found no instability. I then locked the hip in 45 degrees of external rotation and dropped it to the floor with traction off which demonstrated no instability. An AP pelvis fluoroscopic image matching the preoperative standing radiograph with both lesser trochanters visible and both hips in 40 degrees of external rotation demonstrated that the operative side was still slightly short but that offset was appropriate. AP and lateral hip fluoroscopic images were obtained to evaluate the broach size which demonstrated that the stem was likely slightly undersized however I was not going to attempt to place a larger stem and planned to use the cement mantle to fill up the femur. The hip was dislocated and I returned to the broaching position. Based on my evaluation during initial trialing I planned to cement the stem slightly proud and insert final components given the good stability despite the slightly shortened leg length of approximately 5 mm. I then returned to the broaching position and prepared for cementation. Prior to cementation I irrigated the canal, placed a cement restrictor, irrigated the canal again, placed epinephrine-soaked vaginal packing with a whistle-tip catheter, and removed the whistle-tip catheter after insertion of cement. Cement was allowed to dry. The definitive stem was placed and the trunnion was cleaned and dried. I placed a ceramic head onto the trunnion and impacted it into place on the [place] taper.?? All retractors were removed and the hip was reduced. A dilute mixture of betadine and peroxide was used to bathe the soft tissues during final fluoroscopic assessment. Appropriate component positioning was confirmed on an AP pelvis radiograph with the operative and nonoperative legs in 40 degrees of external rotation, evaluating leg length and offset. Appropriate stem fill was evaluated on AP and lateral hip radiographs. No fractures were identified on these radiographs. There was no hip instability with maximum external rotation as well as a 45 degree drop test. The hip was copiously irrigated with pulse lavage. The capsule was closed with absorbable interrupted suture. The TFL fascia was closed with barbed suture while carefully protecting the lateral femoral cutaneous nerve from entrapment. A mixture of Ropivacaine, Epinephrine, Clonidine and Toradol was infiltrated throughout the soft tissues. The skin was closed with 2-0 and 3-0 sutures. Surgical glue was applied and a soft dressing was placed.??The sponge, instrument and needle counts were reported as being correct at the end of the case.??No obvious complications occurred. The patient was transferred from the [place] table back to a stretcher. The patient emerged from anesthesia without difficulty and was taken to the PACU in a stable condition.? Plan for aftercare: * Anterior hip precautions * Weightbearing as tolerated although patient should utilize a walker at all times indefinitely * Incisional wound vacuum device was placed and should remain in place for the next 2 weeks. The battery will after a week at which point the cord can be removed and it can be utilized as a normal dressing until 2 week follow up * Aspirin 81 twice per day for DVT prophylaxis * Anticipate discharge home some time in the next 48-72 hours * Mobilize in the halls as much as is logistically possible. If physical therapy is unavailable for mobilization, then patient should mobilize with nursing staff * Multimodal pain regimen with no IV opioids ordered * Apply ice machine to operative hip. Ensure that sufficient ice is in the chamber for the pad to remain cold * Follow up at [facility] in 2 weeks * Detailed postoperative instructions available at [email or web address]
--- NOTE | 2024-05-23 12:23 | SUR.PHASEI ---
Pt transferred via bed by DIMAS Camara and DIMAS Polo. Pt belongings sent with pt, R hearing aid in place. Family notified of bed assignment. DIMAS Washburn at bedside on transfer. Pt left in bed with wheels locked, side rail x3, call merino in reach. Family at bedside.
[2024-05-23] MEDS: ACETAMINOPHEN 325 MG TABLET 650 MG PO (12:38)
[2024-05-23] MEDS: GABAPENTIN 300 MG CAPSULE PO ×3 (12:38→20:19)
[2024-05-23] MEDS: LACTATED RINGERS 1,000 ML 100 ML IV ×2 (12:39→22:25)
--- NOTE | 2024-05-23 14:06 | PT.IIE ---
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) Fracture of unspecified part of neck of right femur, subsequent encounter for closed fracture with nonunion (05/23/24) Unspecified fracture of right femur, subsequent encounter for closed fracture with nonunion (05/23/24) Surgery Performed Operation Date: 05/23/24 08:30 Actual Procedures p Total Hip Arthroplasty/Anterior Approach(Right) - Gregg Palma MD Surgical History (Last Reviewed 05/19/24 @ 07:04 by Sheeba Sanders MD) History of back surgery History of partial hysterectomy History of repair of left rotator cuff History of repair of right rotator cuff 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) History of right breast biopsy 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) Hx of arthroscopy of right knee Hx of bilateral cataract extraction Hx of tonsillectomy Medical History (Last Reviewed 05/19/24 @ 07:04 by Sheeba Sanders MD) Arthritis Back pain Diverticulosis GERD (gastroesophageal reflux disease) History of COVID-19 (08/2022) [place] (hard of hearing) Migraines Numbness Osteoporosis Restless leg syndrome Rosacea Scoliosis Physical Therapy Inpatient Evaluation/Re-Eval M1 PT/OT-IP Prior Functional Status Start: 05/23/24 15:59 Freq: NEEDED Status: Active Protocol: Document 05/23/24 14:31 AB (Rec: 05/23/24 16:22 AB [id number]) Medical Review Prior Functional Status Medical History Reviewed Yes Communication able to make needs known Mobility and Gait pt s/p fall 05/18/24 sustained a R hip fx. pt d/c home with plan to have hip surgery 05/23. pt now admitted s/p R JOHN. pt stated that prior to fall, she was modified independent with with all mobilities and ambulation switching between a 4WW and a FWW. pt stated that when she went home 05/20/24, she was using a 4WW as a w/c and spouse pushes her on the 4WW for mobility, stated that she was able to stand pivot transfer with spouse assisting . Activities of Daily Living and IADL's Pt's assisted with most of her needs as the surgeon told her prior to stay off her LLE. Social History Household Members spouse Living Arrangements House Number of Floors (Floors) Two Floors Number of Stairs To Enter/Railing? no steps to enter the house Home Environment Standard Height Toilet,Walk in Shower Home Equipment Front Wheel Walker,Four Wheel Walker,Straight Cane,Shower Seat without Backrest,Hand Held Shower,Grab Bars In Shower Additional Social History Comment daughter from [place] has been staying with pt for a few days prior to sx but has to go back to [place] tomorrow but plans to come back again this weekend. pt has a toilet safety frame pt sleeps on a recliner M2 PT-IP Current Condition Start: 05/23/24 15:59 Freq: NEEDED Status: Active Protocol: Document 05/23/24 14:31 AB (Rec: 05/23/24 16:22 AB [id number]) Physical Therapy Current Condition Current Condition Evaluation Date 05/23/24 Treatment Diagnosis S/p R JOHN anterior; difficulty in walking Onset Date 05/23/24 M3 PT-IP Subjective Start: 05/23/24 15:59 Freq: NEEDED Status: Active Protocol: Document 05/23/24 14:31 AB (Rec: 05/23/24 16:22 AB [id number]) Subjective Physical Therapy Visit Type Type Initial Evaluation Visit Start Time 14:31 Visit Stop Time 15:35 Number of OYSTER CULTIVATOR Visits 0 Physical Therapy Visit Comments Patient Comments pt is agreeable to do PT; with slight confusion Therapy Pain Assessment Pain When Pain Assessed At Rest Pain Present Pain Present Pain Reported Location Right hip Intensity 7 Scale Used Numeric (0 - 10) Pain Behaviors Guarding,Holding Area,Wincing Pain Management Techniques Distraction,Modification of Treatment,Re-positioning, Timing of Activity with Medications M4 PT-IP Mobility and Gait Start: 05/23/24 15:59 Freq: NEEDED Status: Active Protocol: Document 05/23/24 14:31 AB (Rec: 05/23/24 16:22 AB [id number]) PT-Bed Mobility Assessment Supine to Sit Supine to Sit Moderate Assistance,Maximum Assistance,1 Person Assistance ,Bedrails Sit to Supine Sit to Supine Maximum Assistance,1 Person Assistance,Head of Bed Elevated,Bedrails PT-Transfer Assessment Sit to and From Stand Sit to and from Stand Maximum Assistance,1 Person Assistance,2 Person Assistance ,Use of Upper Extremities Equipment Transfer Assistive Device Gait Belt,Front Wheeled Walker Orthotic/Prosthetic Devices or Brace: No Transfers Transfer Destination Bed,Bedside Commode Transfer Technique Stand Step Pivot Transfer Ability Level of Assist Maximum Assistance,1 Person Assistance,2 Person Assistance ,Use of Upper Extremities Comments Mobility Comments pt supine in bed. spouse and daughter in room. obtained PLOF and home set up from pt and family. post-op folder provided and reviewed contents . educated pt and family regarding pt's R anterior hip precautions. pt with slight confusion and short term memory issues, needing max cues with all tasks. BP supine: 100/54. pt completed supine to sit mod to max A and max cues. pt able to sit on EOB min A. BP sitting; 101/54. nurse in room to assist and wanting pt to use the toilet. pt completed sit to stand from EOB max A x2. unable to get to full upright position. instructed pt to sit back on EOB. attempted again and max A x2 provided and max cues. (+ ) R knee buckling. completed step transfer to bedside commode using FWW max A x 2 and max cues. pt need max A for R knee stabilization and max cues for quads activation. pt with difficulty following directions requiring repeated cues. pt completed sit to stand from bedside commode max A x 2 and max cues. pt. c/o increase lightheadedness. BP checed: 106/54. max A for standing balance using FWW while nurse assisted pt with hygiene care. pt completed step transfer to EOB using FWW max A x 2 and max cues. continues to have R knee buckling. pt completed sit to supine max A and max cues. positioned pt in bed. call light and table placed within reach. informed pt and family regarding current mobility level and SNF recommendation at this time. Gait Assessment Comments Gait Comments unable at this time PT-Balance Assessment Sitting Balance and Reactions Static Sitting Balance Ability Good Dynamic Sitting Balance Ability Fair Standing Balance and Reactions Static Standing Balance Ability Poor Dynamic Standing Balance Ability Poor Device Used FWW M5 PT-IP Objective Assessments Start: 05/23/24 15:59 Freq: NEEDED Status: Active Protocol: Document 05/23/24 14:31 AB (Rec: 05/23/24 16:22 AB [id number]) Orientation Orientation/Cognition Level of Alertness Confusional State Orientation Name Language Function Ability Hard of Hearing Safety Awareness Decreased Safety Awareness Memory Description Short Term Impaired,Halfway Impaired Gross Range of Motion Lower Extremity ROM Impairments pain limiting movement with increase guarding Strength Lower Extremity Strength Assessment Right Impaired Hip 2+/5 Knee 3-/5 Coordination Assessment Gross Coordination Gross Coordination WNL Sensation Assessment Sensation Gross Sensation WNL Muscle Tone Muscle Tone WNL Yes M6 PT-IP Treatment Start: 05/23/24 15:59 Freq: NEEDED Status: Active Protocol: Document 05/23/24 14:31 AB (Rec: 05/23/24 16:22 AB [id number]) Physical Therapy Treatment Exercises Exercises Quad Sets,Heel Slides Education Education Provided Precautions,Weight Bearing Status,Post-Op Packet,Safety M7 PT-IP Assessment and Plan Start: 05/23/24 15:59 Freq: NEEDED Status: Active Protocol: Document 05/23/24 14:31 AB (Rec: 05/23/24 16:22 AB [id number]) PT Summary Assessment and Plan Potential Rehabilitation Potential Fair Status of Condition at Evaluation Evolving Summary Impairments Pain,ROM,Strength,Balance, Coordination,Sensation,Tone, Cognition,Bed Mobility, Transfers,Gait,Activity Tolerance Assessment Summary pt is an 83 y/o F s/p fall sustaining a R hip fx 06/18/24 . pt had R JOHN anterior approach today and has R hip anterior precautions and is wBAT. pt requiring max A for bed mobility, max A x 2 for transfers using FWW and has (+ ) R knee buckling requiring max A for stabilization. pt with slight confusion and difficulty following directions requiring max cues with all tasks. d/c plan depending on progress but at this time, will require SNF rehab. will continue to assess . Goals Bed Mobility Goal Minimal Assistance Transfer Goal Minimal Assistance,Front Wheeled Walker Gait Goal Minimal Assistance,Front Wheel Walker Gait Distance 100 Other Goals improve bed mobility, transfers, ambulation using FWW 200 ft SBA Days to Meet Goals 10 Frequency of Treatment Frequency Of Treatment Twice a Day Treatment Plan Physical Therapy Treatment Plan Bed Mobility Training,Transfer Training,Gait Training, Therapeutic Exercise,Balance Retraining,Post Op Education, Discharge Planning,Hot or Cold Pack,Neuromuscular Re-ed, Coordination Retraining,Manual Therapy Precautions Anterior Hip Precautions No Hip Extension,No Hip External Rotation Weight Bearing Status Weight Bearing Status Weight Bear as Tolerated Allowed Weight Bearing Amount (enter % RLE WBAT or #) (%) Recommendations To Nursing Amount of Assist Needed 2 Person Assist,PT/OT Assist Only Discharge Recommendations PT Discharge Recommendations SNF Rehab Transportation Needs at Discharge Wheelchair/Cabulance
--- NOTE | 2024-05-23 14:11 | OT.IPNOTE ---
Pt states slight feeling numb on her right calf area, and above knee and wanting to wait to get up at this time. Able to go over her anterior precautions and prior level of care. NO charge.
[2024-05-23] MEDS: OXYCODONE ER 20 MG TAB PO ×2 (14:35→22:27)
[2024-05-23] MEDS: BACLOFEN 10 MG TABLET 5 MG PO (16:00)
[2024-05-23] MEDS: HYDROCODONE/ACET 5/325 TABLET 1 TAB PO (18:11)
[2024-05-23] MEDS: PRAMIPEXOLE 0.25 MG TABLET 0.5 MG PO (20:18)
[2024-05-23] MEDS: DOCUSATE 100 MG CAPSULE PO (20:18)
[2024-05-23] MEDS: CYCLOBENZAPRINE 10 MG TABLET PO (20:19)
[2024-05-23] MEDS: LIDOCAINE 5% PATCH 1 EACH TOP (20:19)
[2024-05-23] MEDS: ASPIRIN EC 81 MG TABLET PO (21:00)
[2024-05-24] VITALS (7 sets, daily range): BP systolic 93–130; BP diastolic 40–61; PULSE 85–102; RESP 14–18; TEMP 36.5–37.1; O2SAT 98–99
[2024-05-24] MEDS: BACLOFEN 10 MG TABLET 5 MG PO (00:53)
[2024-05-24] MEDS: HYDROCODONE/ACET 5/325 TABLET 1 TAB PO (00:53)
[2024-05-24] MEDS: OXYCODONE ER 20 MG TAB PO (05:55)
[2024-05-24] MEDS: CALCIUM CARBONATE 500 MG TAB PO ×3 (06:37→21:20)
[2024-05-24 07:48] LABS: Hematocrit 20.3 % (36-46); Hemoglobin 6.9 g/dL (12.0-16.0)
--- NOTE | 2024-05-24 08:28 | P.PN_ITS ---
Subjective Subjective Interval history: Past Surgical History: - Left total knee replacement by Dr. Sanders in June 2023 - Right total knee replacement by Dr. Sanders in November 2023 - Fixation of femoral neck fracture at [facility] in January 2024 - Lumbosacral fusion for scoliosis in 2012 - 05/24/2024: Conversion of Prior Right Femoral Neck Fracture Fixation to Right Hybrid Direct Anterior Dual Mobility Depuy Total Hip Arthroplasty with Uncemented Acetabular Component and Cemented Femoral Component and Fixation of Intraoperative Femoral Shaft Fracture with Cerclage Cabling Patient Summary: The patient presents for post-operative care following a conversion of prior cannulated screw fixation of a right femoral neck fracture to a cemented monoblock dual mobility total hip arthroplasty due to femoral neck nonunion which was complicated by femoral fracture during hip reduction which was managed with cerclage cabling. Subjective: - Reports feeling stretched and tight in the leg post-surgery - Experiencing muscle spasms with baseline restless legs - States taking oxycodone 5 mg four times a day at home for back pain and restless leg syndrome - Reports not feeling lightheaded currently but had a dizzy spell yesterday when getting up Objective: Physical Exam: - Anterior hip incision clean with OSCAR dressing, no spotting - AquaCell dressing over prior screw fixation incision, dry and intact - Ecchymosis on lateral thigh, no breakthrough bleeding - Intact sciatic and femoral nerve function Assessment: - Post-operative status following conversion total hip arthroplasty - Muscle spasms likely secondary to post-operative status - Post-operative anemia with hemoglobin of 6.9 - History of osteoporosis contributing to fracture Plan: - Continue oxycodone 5 mg four times a day as per patient's baseline - Ensure administration of muscle relaxants (cyclobenzaprine) for muscle spasms - Administer one unit of packed red blood cells for post-operative anemia. PT will likely be held during transfusion which will mean she does not ambulate much today so please have her spend as much time upright in the chair as possible. Vigilant incentive spirometry as well - Keflex for PJI prophylaxis while inpatient. Will transition to Cefadroxil at time of discharge - Encourage weight-bearing as tolerated - Coordinate with Physical Therapy (PT) and Occupational Therapy (OT) for mobilization - Anticipate extended hospital stay for mobilization purposes before discharge home Exam Vital Signs (past 8 hours): Oxygen Delivery Method Room Air Oxygen Flow Rate 0 Objective Labs 05/24/24 05:30 Labs: Laboratory Results - last 24 hr 05/24/24 05:30 Hgb 6.9 L* Hct 20.3 L* PFSH Medical History History of COVID-19 (08/2022) Rosacea Osteoporosis Arthritis Scoliosis Diverticulosis GERD (gastroesophageal reflux disease) Back pain [place] (hard of hearing) Numbness Migraines Restless leg syndrome Surgical History 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) Hx of arthroscopy of right knee Hx of tonsillectomy History of right breast biopsy History of partial hysterectomy Hx of bilateral cataract extraction History of repair of right rotator cuff History of repair of left rotator cuff History of back surgery Social History household members: spouse and family Smoking Status: Never smoker alcohol intake: current Assessment & Plan Time-Based Coding :: [TOTAL MINUTES] spent with patient and on the chart (including review of chart, obtaining history, exam, reviewing outside data, placing orders, documenting exam and treatment plan, and counseling patient) on [DATE].
--- NOTE | 2024-05-24 08:52 | PT-IP ANOTE ---
Per nursing pt is not appropriate for PT at this time due to low H&H. Will attempt to see later this afternoon if appropriate.
--- NOTE | 2024-05-24 09:10 | CM.DANOTE ---
Initial DCP Assessment Visit Note Reviewed EMR and team rounds for status updates. Met briefly with pt at bedside to introduce self and role, pt was found to be alert/oriented, was able to answer this LOADER TECHNICIAN's questions, but was very distracted by wanting to get back into bed and eat her breakfast. Pt lives modified independently with her spouse in their own home in [place]. Her will plan to transport her home if she doesn't go to SNF rehab. Payor: Medicare Attending: Dr. Palma Pt is a 83 year-old F who is post-op day 1 from a planned R-total hip arthroplasty surgery. She had a GLF 6-weeks ago which resulted in fracturing her R-hip. She was briefly hospitalized at that time for 2-days, then released home until the date of the scheduled procedure. She has a hx of multiple falls and several orthopedic surgeries, and ambulates with a walker at baseline. She is chronically dizzy and has poor balance. She has a dtr who lives in [place] that has been very helpful and supportive of her with prior surgeries, DCP will clarify if she will be able to assist when pt is d/c'd back home after this admission. DCP will continue to follow and assist with final d/c needs and recommendations. PT/OT evals and recs are pending. Discharge Planning/Care Management Advanced directive, confirm from FAMILY Start: 05/23/24 15:46 Freq: Q24H Status: Active Protocol: Document 05/23/24 15:46 SB (Rec: 05/23/24 16:09 SB [id number]) Advance Directive, confirm on record Time 16:09 Person contacted patient Copy received No CM Discharge Assessment Start: 05/24/24 09:02 Freq: Status: Active Protocol: Document 05/24/24 09:02 DPL (Rec: 05/24/24 09:08 DPL [id number]) Discharge Planning Assessment Assigned Senior Product Development Engineer IRINEO Franks Advance Directives? Yes Advance Directives on File No History Provided By Patient,Medical Record Has Patient been admitted in last 30 Yes days? Comment 05/18-05/20/24 for R-hip fracture secondary to GLF Prior Living Arrangements House Household Members spouse,family Type of transporation used prior to Relies on Others admit Independent with ADL's No: modified independent with a FWW Is patient alert and oriented? Yes Needs Assistance With Home Chores / Shopping Caregiver for Another No DME Already Rented / Owned Bath Bench,Elevated Toilet Seat,FWW / Walker,Cane Patient/Family Preference Home with Home Health Barriers to Discharge No Comment Pending recs from therapy team Discharge Plan Home Transportation Arrangement spouse Referrals Initiated Home Health Additional Comment Pending PT/OT evals and recommendations. If patient plan is home with home health No : Has signed face to face form been completed? Whiteboard Updated in Patient Room with Yes name and ext. # of Senior Product Development Engineer Review Status In Process Please Provide Date Initial DC 05/24/24 Assessment Was Performed
[2024-05-24] MEDS: polyethylene glycoL 3350 17 GM POWD.PACK PO (09:30)
[2024-05-24] MEDS: CYCLOBENZAPRINE 10 MG TABLET PO ×2 (09:31→21:17)
[2024-05-24] MEDS: DOCUSATE 100 MG CAPSULE PO ×2 (09:31→21:18)
[2024-05-24] MEDS: ASPIRIN EC 81 MG TABLET PO ×2 (09:31→21:17)
[2024-05-24] MEDS: GABAPENTIN 300 MG CAPSULE PO ×4 (09:32→21:17)
[2024-05-24] MEDS: OXYCODONE 5 MG/5 ML ORAL SOLUTION PO ×2 (09:32→21:19)
[2024-05-24] MEDS: cephALEXin 250 MG CAPSULE 500 MG PO ×2 (09:32→21:18)
--- NOTE | 2024-05-24 10:20 | OT.IPNOTE ---
Pt having low HH and to be getting a transfusion.
[2024-05-24] MEDS: IBUPROFEN 600 MG TABLET PO (12:37)
[2024-05-24] MEDS: ACETAMINOPHEN 325 MG TABLET 650 MG PO ×2 (12:37→17:31)
[2024-05-24 15:23] LABS: Hematocrit 22.9 % (36-46)
--- NOTE | 2024-05-24 15:46 | P.PN_ITS ---
Subjective Subjective Interval history: Job is currently resting comfortably in her chair. She has received her unit of packed red blood cells and had an appropriate improvement in her hemoglobin to 8. She has still had some hypotension however so physical therapy was appropriately with held today. She is currently receiving IV fluids at 100 mL/hr and we will continue with those for the time being. She is receiving oxycodone 5 mg every 4 hours as per her baseline opiate dosages. I anticipate that she will require additional work beyond the typical total hip arthroplasty to mobilize postoperatively because of her extended period of immobility between the cannulated screw fixation and the conversion total hip. I do anticipate that she will eventually mobilize well enough to be able to return home with help from her family and potentially home health as well. We will continue monitoring her progress tomorrow. Exam Vital Signs (past 8 hours): - 05/24/24 10:45 05/24/24 11:15 05/24/24 11:32 Temperature 98 F 97.7 F 97.8 F Pulse Rate 96 H 102 H 89 Respiratory Rate 18 16 18 Blood Pressure 99/40 L 96/44 L 99/52 L Pulse Oximetry 99 05/24/24 14:03 05/24/24 14:10 Temperature 98.8 F 98.8 F Pulse Rate 89 89 Respiratory Rate 16 15 Blood Pressure 94/40 L 93/40 L Pulse Oximetry Oxygen Delivery Method Room Air Oxygen Flow Rate 0 Objective Labs 05/24/24 14:58 Labs: Laboratory Results - last 24 hr 05/24/24 05/24/24 05/24/24 05:30 09:07 14:58 Hgb 6.9 L* 8.0 L Hct 20.3 L* 22.9 L Blood Type O Positive Antibody Screen Negative Crossmatch See Detail [facility] Medical History History of COVID-19 (08/2022) Rosacea Osteoporosis Arthritis Scoliosis Diverticulosis GERD (gastroesophageal reflux disease) Back pain [place] (hard of hearing) Numbness Migraines Restless leg syndrome Surgical History 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) Hx of arthroscopy of right knee Hx of tonsillectomy History of right breast biopsy History of partial hysterectomy Hx of bilateral cataract extraction History of repair of right rotator cuff History of repair of left rotator cuff History of back surgery Social History household members: spouse and family Smoking Status: Never smoker alcohol intake: current Assessment & Plan Time-Based Coding :: [TOTAL MINUTES] spent with patient and on the chart (including review of chart, obtaining history, exam, reviewing outside data, placing orders, documenting exam and treatment plan, and counseling patient) on [DATE].
--- NOTE | 2024-05-24 16:16 | PC.NURSE ---
Day shift: Ok with Dr Palma to keep IV fluids going per MAR due to hypotension at this time.
--- NOTE | 2024-05-24 16:48 | PT-IP ANOTE ---
Per nursing pt is not appropriate for PT at this time. Pt will be seen tomorrow in the AM.
[2024-05-24] MEDS: PRAMIPEXOLE 0.25 MG TABLET 0.5 MG PO (21:17)
[2024-05-24] MEDS: LIDOCAINE 5% PATCH 1 EACH TOP (21:18)
[2024-05-24] MEDS: LACTATED RINGERS 1,000 ML 100 ML IV (21:33)
[2024-05-25] MEDS: BACLOFEN 10 MG TABLET 5 MG PO ×4 (02:14→23:44)
[2024-05-25] MEDS: CALCIUM CARBONATE 500 MG TAB PO ×5 (02:15→17:35)
[2024-05-25] MEDS: OXYCODONE 5 MG/5 ML ORAL SOLUTION PO ×2 (02:15→09:03)
[2024-05-25 06:00] VITALS: BP 149/63; PULSE 90; RESP 19; O2SAT 95
[2024-05-25] MEDS: ACETAMINOPHEN 325 MG TABLET 650 MG PO ×3 (06:26→17:35)
[2024-05-25] MEDS: CYCLOBENZAPRINE 10 MG TABLET PO (06:27)
[2024-05-25 06:31] LABS: Hemoglobin 8.3 g/dL (12.0-16.0); Mean Corpuscular HGB Conc 34.4 % (30-36); Mean Corpuscular Hemoglobin 30.1 PG (26-34); Mean Corpuscular Volume 87.6 fL (80-100); Platelet Count 279 X10^3/uL (150-400); Red Blood Cell Count 2.74 X10^6/uL (4.0-5.2); White Blood Cell Count 11.5 X10^3/uL (4.5-11.0)
[2024-05-25 08:10] VITALS: BP 119/85; PULSE 88; RESP 18; TEMP 36.9
[2024-05-25] MEDS: cephALEXin 250 MG CAPSULE 500 MG PO ×2 (09:03→20:54)
[2024-05-25] MEDS: DOCUSATE 100 MG CAPSULE PO ×2 (09:03→20:53)
[2024-05-25] MEDS: GABAPENTIN 300 MG CAPSULE PO ×4 (09:03→20:53)
[2024-05-25] MEDS: polyethylene glycoL 3350 17 GM POWD.PACK PO (09:03)
[2024-05-25] MEDS: ASPIRIN EC 81 MG TABLET PO ×2 (09:03→20:53)
--- NOTE | 2024-05-25 10:15 | PT.IPTN ---
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) Fracture of unspecified part of neck of right femur, subsequent encounter for closed fracture with nonunion (05/23/24) Unspecified fracture of right femur, subsequent encounter for closed fracture with nonunion (05/23/24) Surgery Performed Operation Date: 05/23/24 08:30 Actual Procedures p Total Hip Arthroplasty/Anterior Approach(Right) - Gregg Palma MD Physical Therapy Treatment Note M2 PT-IP Current Condition Start: 05/23/24 15:59 Freq: NEEDED Status: Active Protocol: Document 05/23/24 14:31 AB (Rec: 05/23/24 16:22 AB [id number]) Physical Therapy Current Condition Current Condition Evaluation Date 05/23/24 Treatment Diagnosis S/p R JOHN anterior; difficulty in walking Onset Date 05/23/24 M3 PT-IP Subjective Start: 05/23/24 15:59 Freq: NEEDED Status: Active Protocol: Document 05/25/24 10:42 TS (Rec: 05/25/24 10:53 TS [id number]) Subjective Physical Therapy Visit Type Type Treatment Note Visit Start Time 10:15 Visit Stop Time 10:40 Number of MANAGER STATISTICAL PROGRAMMING Visits 1 Physical Therapy Visit Comments Patient Comments Pt is agreeable to PT. Therapy Pain Assessment Pain When Pain Assessed At Rest Pain Present Pain Present Pain Reported M4 PT-IP Mobility and Gait Start: 05/23/24 15:59 Freq: NEEDED Status: Active Protocol: Document 05/25/24 10:42 TS (Rec: 05/25/24 10:53 TS [id number]) PT-Bed Mobility Assessment Supine to Sit Supine to Sit Moderate Assistance,1 Person Assistance,Bedrails Sit to Supine Sit to Supine Maximum Assistance,1 Person Assistance,Head of Bed Elevated,Bedrails Scooting Scooting to Edge of Bed Minimal Assistance PT-Transfer Assessment Sit to and From Stand Sit to and from Stand Minimal Assistance,Moderate Assistance,1 Person Assistance ,Use of Upper Extremities Equipment Transfer Assistive Device Gait Belt,Front Wheeled Walker Orthotic/Prosthetic Devices or Brace: No Comments Mobility Comments STS from chair ModA with FWW and cues for STS technique. She ambulated ~15'Loreta with FWW and a slow step to gait, pt demonstrates good carryover of gait sequencing.Sit to supine into bed MaxA x1 for LE 's and repositioning of trunk. Supine to sit ModA for uprighting her trunk. She scoots EOB Loreta with BUE support. She ambulated another ~15'Loreta with FWW. Pt has some lightheadedness in standing. Pt was left in chair , all needs met. Gait Assessment Gait Gait Assistance Required: Minimum Assistance,1 Person Assist Distance (Feet) 30 Able to Maintain Weight Bearing Status No During Gait Assistive Devices Assistive Device Front Wheeled Walker Orthotic/Prosthetic Devices or Brace: No Gait Deviations General Gait Pattern Antalgic,Decreased Stride Length,Decreased Feet Clearance,Step-to Gait Factors Limiting Gait Function Factors Limiting Gait Function Decreased Activity Tolerance, Decreased Sensation,Decreased Strength,Pain,Poor Balance, Poor Safety Awareness PT-Balance Assessment Sitting Balance and Reactions Static Sitting Balance Ability Good Dynamic Sitting Balance Ability Fair Standing Balance and Reactions Static Standing Balance Ability Fair Dynamic Standing Balance Ability Fair Device Used FWW M5 PT-IP Objective Assessments Start: 05/23/24 15:59 Freq: NEEDED Status: Active Protocol: Document 05/23/24 14:31 AB (Rec: 05/23/24 16:22 AB [id number]) Orientation Orientation/Cognition Level of Alertness Confusional State Orientation Name Language Function Ability Hard of Hearing Safety Awareness Decreased Safety Awareness Memory Description Short Term Impaired,Skilled Nursing Impaired Gross Range of Motion Lower Extremity ROM Impairments pain limiting movement with increase guarding Strength Lower Extremity Strength Assessment Right Impaired Hip 2+/5 Knee 3-/5 Coordination Assessment Gross Coordination Gross Coordination WNL Sensation Assessment Sensation Gross Sensation WNL Muscle Tone Muscle Tone WNL Yes M6 PT-IP Treatment Start: 05/23/24 15:59 Freq: NEEDED Status: Active Protocol: Document 05/25/24 10:42 TS (Rec: 05/25/24 10:53 [id number]) Physical Therapy Treatment Education Education Provided Precautions,Weight Bearing Status,Post-Op Packet,Safety M7 PT-IP Assessment and Plan Start: 05/23/24 15:59 Freq: NEEDED Status: Active Protocol: Document 05/25/24 10:42 TS (Rec: 05/25/24 10:53 [id number]) PT Summary Assessment and Plan Potential Rehabilitation Potential Fair Summary Impairments Pain,ROM,Strength,Balance, Coordination,Sensation,Tone, Cognition,Bed Mobility, Transfers,Gait,Activity Tolerance Progress Towards Goals Slow Progress due to Pain,Slow Progress due to Activity Tolerance Assessment Summary oJb is making some progress with her mobility but continues to be limited by poor activity tolerance and pain. She is Loreta/ModA for STS with FWW. She progressed her gait to ~30'Loreta with FWW. She requires ModA/MaxA for bed mobility. She continues to be a high falls risk. She has her at home and pt does not believe he can properly assist her and her daughter lives in [place]. PT is recommending SNF rehab. Goals Bed Mobility Goal Minimal Assistance Transfer Goal Minimal Assistance,Front Wheeled Walker Gait Goal Minimal Assistance,Front Wheel Walker Gait Distance 100 Other Goals improve bed mobility, transfers, ambulation using FWW 200 ft SBA Days to Meet Goals 10 Frequency of Treatment Frequency Of Treatment Twice a Day Treatment Plan Physical Therapy Treatment Plan Bed Mobility Training,Transfer Training,Gait Training, Therapeutic Exercise,Balance Retraining,Post Op Education, Discharge Planning,Hot or Cold Pack,Neuromuscular Re-ed, Coordination Retraining,Manual Therapy Precautions Anterior Hip Precautions No Hip Extension,No Hip External Rotation Weight Bearing Status Weight Bearing Status Weight Bear as Tolerated Allowed Weight Bearing Amount (enter % RLE WBAT or #) (%) Recommendations To Nursing Amount of Assist Needed 2 Person Assist Discharge Recommendations PT Discharge Recommendations SNF Rehab Transportation Needs at Discharge Wheelchair/Cabulance
--- NOTE | 2024-05-25 10:50 | OT.IP.EVAL ---
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) Fracture of unspecified part of neck of right femur, subsequent encounter for closed fracture with nonunion (05/23/24) Unspecified fracture of right femur, subsequent encounter for closed fracture with nonunion (05/23/24) Surgery Performed Operation Date: 05/23/24 08:30 Actual Procedures p Total Hip Arthroplasty/Anterior Approach(Right) - Gregg Palma MD Past Medical History (Last Reviewed 05/19/24 @ 07:04 by Sheeba Sanders MD) Arthritis Back pain Diverticulosis GERD (gastroesophageal reflux disease) History of COVID-19 (08/2022) [place] (hard of hearing) Migraines Numbness Osteoporosis Restless leg syndrome Rosacea Scoliosis Surgical History (Last Reviewed 05/19/24 @ 07:04 by Sheeba Sanders MD) History of back surgery History of partial hysterectomy History of repair of left rotator cuff History of repair of right rotator cuff 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) History of right breast biopsy 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 pt d/c home with plan to have hip surgery 05/23. pt now admitted s/p R JOHN. pt stated that prior to fall, she was modified independent with with all mobilities and ambulation switching between a 4WW and a FWW. pt stated that when she went home 05/20/24, she was using a 4WW as a w/c and spouse pushes her on the 4WW for mobility, stated that she was able to stand pivot transfer with spouse assisting . Activities of Daily Living and IADL's Pt's assisted with most of her needs as the surgeon told her prior to stay off her LLE. Social History Household Members spouse,family Living Arrangements House Number of Floors (Floors) Two Floors Number of Stairs To Enter/Railing? no steps to enter the house Home Environment Standard Height Toilet,Walk in Shower Home Equipment Front Wheel Walker,Four Wheel Walker,Straight Cane,Shower Seat without Backrest,Hand Held Shower,Grab Bars In Shower M2 OT-IP Current Condition Start: 05/23/24 14:12 Freq: Status: Active Protocol: Document 05/25/24 10:50 [facility] (Rec: 05/25/24 11:34 [facility] [id number]) Occupational Therapy Current Condition Current Condition Evaluation Date 05/25/24 Treatment Diagnosis S/P R JOHN anterior approach Diagnosis Onset Date 05/23/24 M3 OT- IP Subjective and Pain Start: 05/23/24 14:12 Freq: Status: Active Protocol: Document 05/25/24 10:50 [facility] (Rec: 05/25/24 11:34 [facility] [id number]) OT- Subjective Occupational Therapy Visit Type Type Initial Evaluation Visit Start Time 10:50 Visit Stop Time 11:20 Occupational Therapy Visit Comments Patient Comments Pt agreed to stand to reposition. Patient/Caregiver Goals Pt states realizes would be best to go to skilled rehab. OT Pain Assessment Pain When Pain Assessed At Rest Pain Present Pain Present Pain Reported Location Right hip Intensity 3 Scale Used Numeric (0 - 10) M4 OT- IP ADL's Start: 05/23/24 14:12 Freq: Status: Active Protocol: Document 05/25/24 10:50 [facility] (Rec: 05/25/24 11:34 [facility] [id number]) OT [id number] Comments OT Self-Feeding Comments Assist fot set-up. OT ADL-Grooming General Evaluation Grooming Ability Minimal Assistance Areas Needing Assistance Combing/Brushing Hair Comments OT Grooming Comments Assist to comb the back of her hair. Assist for set-up. OT ADL-Oral Care General Eval Oral Care Ability Independent OT ADL-Dressing General Eval Lower Body Dressing Ability Maximum Assistance Areas Needing Assistance Socks OT ADL-Toileting Comments OT Toileting Comments Pt states not able to reach back well to wipe, educated, and showed pt toilet paper aid . Pt would also benefit from a bidet. OT ADL-Bathing Comments OT Bathing Comments Sponge bath more appropriate at this time. M5 OT- IP IADL's Start: 05/23/24 14:12 Freq: Status: Active Protocol: Document 05/25/24 10:50 [facility] (Rec: 05/25/24 11:34 [facility] [id number]) OT-Instrumental Activities of Daily Living Deficits IADL Deficits Identified Deficits Home Safety Awareness Home Safety Comments Pt is aware that she is not able to care for herself at this time and will need assist for all needs. M6 OT- IP Functional Cognition Start: 05/23/24 14:12 Freq: Status: Active Protocol: Document 05/25/24 10:50 [facility] (Rec: 05/25/24 11:34 [facility] [id number]) Cognitive Factors Limiting Selfcare Function Cognitive Ability Level of Alertness Alert Patient Orientation Name,Age,Birthday,Month,Date, Year,Day of Week,Place, Situation Attention Span Ability Capable of Focused Attention, Capable of Sustained Attention Ability to Follow Commands Able to Follow One Step Commands Memory Description Short Term Impaired Cognitive Comments Cognitive Assessment Comments Pt needing reminders to follow her hip precautions and to be able to recall them at this time. OT- Vision and Hearing OT- Hearing Assessment OT- Hearing Assessment Hearing Impaired,Use of Hearing Aids OT- Vision Assessment Visual Acuity Glasses All The Time Visual Attentiveness WFL Occular Pursuits WFL M7 OT- IP Mobility and Balance Start: 05/23/24 14:12 Freq: Status: Active Protocol: Document 05/25/24 10:50 [facility] (Rec: 05/25/24 11:34 [facility] [id number]) OT-Transfer Assessment Sit to and From Stand Sit to and from Stand Moderate Assistance Comments Mobility Comments Sit to stand with MODA X1 to stand to the FWW. OT- Balance Assessment Sitting Balance and Reactions Static Sitting Balance Ability Fair Dynamic Sitting Balance Ability Fair Standing Balance and Reactions Static Standing Balance Ability Poor M8 OT- IP Objective Assessments Start: 05/23/24 14:12 Freq: Status: Active Protocol: Document 05/25/24 10:50 [facility] (Rec: 05/25/24 11:34 [facility] [id number]) OT Gross Range of Motion Upper Extremity Range of Motion Assessment Bilaterally Impaired OT Strength Upper Extremity Strength Assessment Bilaterally Impaired OT- Coordination Assessment Comments Coordination Comments Arthritic changes in her hands . M9 OT- IP Assessment and Plan Start: 05/23/24 14:12 Freq: Status: Active Protocol: Document 05/25/24 10:50 [facility] (Rec: 05/25/24 11:34 [facility] [id number]) OT Summary Assessment and Plan Potential Rehabilitation Potential Good Analytic Complexity at Evaluation Moderate Summary OT Impairments Pain,Range of Motion,Strength, Balance,Functional Cognition, Functional Mobility,Self- Feeding,Grooming,Dressing, Toileting,Bathing,Toilet Transfers,Shower Transfers, Activity Tolerance Progress Towards Goals Slow Progress due to Pain,Slow Progress due to Medical Issues,Slow Progress due to Activity Tolerance Assessment Summary Pt MOD complexity and main barriers are steps, pain, activity tolerance, and will benefit from skilled rehab at this time. Goals Grooming Goal Minimal Assistance Dressing Goal Minimal Assistance Toileting Goal Minimal Assistance Bathing Goal Minimal Assistance Toilet Transfer Goal Standby Assistance Shower Transfer Goal Contact Guard Assistance Days to Meet Goals 30 Frequency of Treatment Other frequency 5x/week Treatment Plan OT Treatment Plan ADL Training,Functional Cognition Training,Functional Mobility,Patient/Family Education,Discharge Planning Other Treatment Recommendations and Next Pt to be able to incorporate Treatment Focus her hip precautions for ADL and mobility needs. Discharge Recommendations OT Discharge Recommendations SNF Rehab Home Equipment Needs Bidet/toilet paper aid Transportation Needs at Discharge Wheelchair/Cabulance
--- NOTE | 2024-05-25 11:24 | P.PN_ITS ---
Subjective Subjective Date Patient Seen: 05/25/24 Time Patient Seen: 11:24 Interval history: Patient is found sitting in chair. She was able to work with physical therapy and walk around her bed. She has ongoing right leg spasms that have been present since her right knee surgery in November 2023. Pain is controlled with Tylenol spasms regulated with baclofen and cyclobenzaprine. No new numbness tingling pain down the right extremity. No nausea or vomiting. Exam Vital Signs (past 8 hours): - 05/25/24 06:00 05/25/24 08:10 Temperature 98.5 F Pulse Rate 90 88 Respiratory Rate 19 18 Blood Pressure 149/63 H 119/85 Pulse Oximetry 95 Oxygen Delivery Method Room Air Oxygen Flow Rate 0 Narrative Exam Narrative: Dressing appears to be clean dry and intact. No notable edema of the lower extremities bilaterally. Mild tenderness to compression of the posterior right calf but no warmth or redness noted. Sensation grossly intact to light touch throughout the lower extremities bilaterally. Patient is able to dorsiflex and plantar flex against resistance at the ankles bilaterally. 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) Hx of arthroscopy of right knee Hx of tonsillectomy History of right breast biopsy History of partial hysterectomy Hx of bilateral cataract extraction History of repair of right rotator cuff History of repair of left rotator cuff History of back surgery Social History household members: spouse and family Smoking Status: Never smoker alcohol intake: current Assessment & Plan Post-op Postoperative Procedures: Procedures Operation Date: 05/23/24 08:30 Actual Procedure Side Surgeon p Total Hip Arthroplasty/Anterior Approach Right Gregg Palma MD Postoperative day: 2 Postoperative plan: routine post-op care Postoperative plan narrative: Patient will continue to work with physical therapy for ambulation. Multimodal pain control. Aspirin 81 mg twice a day for DVT prophylaxis. The patient most likely discharge to SNF in [facility] where she resided before her most recent fall. Time Spent With Patient Time with patient: less than 15 minutes Quality VTE Deep Vein Thrombosis/Pulmonary Embolism Present on Admission: No
[2024-05-25] MEDS: OXYCODONE IR 5 MG TABLET PO (12:20)
[2024-05-25] MEDS: CELECOXIB 100 MG CAPSULE PO (12:20)
[2024-05-25] MEDS: ONDANSETRON 4 MG ODT PO (12:53)
--- NOTE | 2024-05-25 12:57 | PM.PN.1 ---
Subjective Subjective Interval history: Patient Summary: Job Farr is an inpatient experiencing nausea and pain in her hip and right thigh post-surgery. Subjective: - Nausea today - Pain in hip and right thigh in the area of surgery - Difficulty with mobilization and pain while mobilizing Objective: - Sitting upright in a chair - No discernible signs of pain - Dressing clean, dry, and intact - Intact seal on incisional wound vac - Range of motion examination deferred Assessment: - Anemia (resolved with hemoglobin level now at 8.0 after receiving one unit of packed blood cells) - Post-surgical pain - Nausea Plan: - Administer nausea medications - Minimize opioids by incorporating tramadol (50mg or 100mg doses) - Begin process of setting up transfer to a nursing facility with case management due to mobilization challenges Exam Vital Signs (past 8 hours): - 05/25/24 06:00 05/25/24 08:10 Temperature 98.5 F Pulse Rate 90 88 Respiratory Rate 19 18 Blood Pressure 149/63 H 119/85 Pulse Oximetry 95 Oxygen Delivery Method Room Air Oxygen Flow Rate 0 Objective Labs 05/25/24 06:00 Labs: Laboratory Results - last 24 hr 05/24/24 05/24/24 05/25/24 09:07 14:58 06:00 WBC 11.5 H RBC 2.74 L Hgb 8.0 L 8.3 L Hct 22.9 L 24.0 L MCV 87.6 MCH 30.1 MCHC 34.4 RDW 14.0 Plt Count 279 Crossmatch See Detail PFSH Medical History History of COVID-19 (08/2022) Rosacea Osteoporosis Arthritis Scoliosis Diverticulosis GERD (gastroesophageal reflux disease) Back pain [place] (hard of hearing) Numbness Migraines Restless leg syndrome Surgical History 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) Hx of arthroscopy of right knee Hx of tonsillectomy History of right breast biopsy History of partial hysterectomy Hx of bilateral cataract extraction History of repair of right rotator cuff History of repair of left rotator cuff History of back surgery Social History household members: spouse and family Smoking Status: Never smoker alcohol intake: current Assessment & Plan Time-Based Coding :: [TOTAL MINUTES] spent with patient and on the chart (including review of chart, obtaining history, exam, reviewing outside data, placing orders, documenting exam and treatment plan, and counseling patient) on [DATE]. Quality VTE Deep Vein Thrombosis/Pulmonary Embolism Present on Admission: No
[2024-05-25] MEDS: PANTOPRAZOLE DR 20 MG TABLET PO (13:05)
--- NOTE | 2024-05-25 13:31 | CM.DPC ---
DCP Cont. Reviewed EMR and team rounds for status updates. Met with pt to discuss her preference for SNF rehab, she is [facility]. Faxed referral, anticipating d/c 05/26. [facility] accepts.
--- NOTE | 2024-05-25 14:28 | PT.IPTN ---
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) Fracture of unspecified part of neck of right femur, subsequent encounter for closed fracture with nonunion (05/23/24) Unspecified fracture of right femur, subsequent encounter for closed fracture with nonunion (05/23/24) Surgery Performed Operation Date: 05/23/24 08:30 Actual Procedures p Total Hip Arthroplasty/Anterior Approach(Right) - Gregg Palma MD Physical Therapy Treatment Note M2 PT-IP Current Condition Start: 05/23/24 15:59 Freq: NEEDED Status: Active Protocol: Document 05/23/24 14:31 AB (Rec: 05/23/24 16:22 AB [id number]) Physical Therapy Current Condition Current Condition Evaluation Date 05/23/24 Treatment Diagnosis S/p R JOHN anterior; difficulty in walking Onset Date 05/23/24 M3 PT-IP Subjective Start: 05/23/24 15:59 Freq: NEEDED Status: Active Protocol: Document 05/25/24 14:51 TS (Rec: 05/25/24 15:00 TS [id number]) Subjective Physical Therapy Visit Type Type Treatment Note Visit Start Time 14:28 Visit Stop Time 14:45 Number of COMMERCIAL ESCROW ASSISTANT Visits 2 Physical Therapy Visit Comments Patient Comments Pt found resting in chair, reports some nausea, she would like to get back to bed, pt is agreeable to PT. Therapy Pain Assessment Pain When Pain Assessed At Rest Pain Present Pain Present Pain Reported M4 PT-IP Mobility and Gait Start: 05/23/24 15:59 Freq: NEEDED Status: Active Protocol: Document 05/25/24 14:51 TS (Rec: 05/25/24 15:00 TS [id number]) PT-Bed Mobility Assessment Sit to Supine Sit to Supine Maximum Assistance,1 Person Assistance,Head of Bed Elevated,Bedrails PT-Transfer Assessment Sit to and From Stand Sit to and from Stand Maximum Assistance,1 Person Assistance Equipment Transfer Assistive Device Gait Belt,Front Wheeled Walker Orthotic/Prosthetic Devices or Brace: No Comments Mobility Comments STS with FWW MaxA for balance. She ambulated to bed ~5' with FWW and Loreta. Sit to supine into bed MaxA x1. Pt was left in bed, all needs met. Gait Assessment Gait Gait Assistance Required: Minimum Assistance,1 Person Assist Distance (Feet) 5 Able to Maintain Weight Bearing Status No During Gait Assistive Devices Assistive Device Gait Belt,Front Wheeled Walker Orthotic/Prosthetic Devices or Brace: No Gait Deviations General Gait Pattern Antalgic,Decreased Stride Length,Decreased Feet Clearance,Step-to Gait Factors Limiting Gait Function Factors Limiting Gait Function Decreased Activity Tolerance, Decreased Sensation,Decreased Strength,Pain,Poor Balance, Poor Safety Awareness PT-Balance Assessment Sitting Balance and Reactions Static Sitting Balance Ability Good Dynamic Sitting Balance Ability Fair Standing Balance and Reactions Static Standing Balance Ability Fair Dynamic Standing Balance Ability Fair Device Used FWW M5 PT-IP Objective Assessments Start: 05/23/24 15:59 Freq: NEEDED Status: Active Protocol: Document 05/23/24 14:31 AB (Rec: 05/23/24 16:22 AB [id number]) Orientation Orientation/Cognition Level of Alertness Confusional State Orientation Name Language Function Ability Hard of Hearing Safety Awareness Decreased Safety Awareness Memory Description Short Term Impaired,Budget Accountant Impaired Gross Range of Motion Lower Extremity ROM Impairments pain limiting movement with increase guarding Strength Lower Extremity Strength Assessment Right Impaired Hip 2+/5 Knee 3-/5 Coordination Assessment Gross Coordination Gross Coordination WNL Sensation Assessment Sensation Gross Sensation WNL Muscle Tone Muscle Tone WNL Yes M6 PT-IP Treatment Start: 05/23/24 15:59 Freq: NEEDED Status: Active Protocol: Document 05/25/24 14:51 TS (Rec: 05/25/24 15:00 TS [id number]) Physical Therapy Treatment Education Education Provided Precautions,Weight Bearing Status,Post-Op Packet,Safety M7 PT-IP Assessment and Plan Start: 05/23/24 15:59 Freq: NEEDED Status: Active Protocol: Document 05/25/24 14:51 TS (Rec: 05/25/24 15:00 TS [id number]) PT Summary Assessment and Plan Potential Rehabilitation Potential Fair Summary Impairments Pain,ROM,Strength,Balance, Coordination,Sensation,Tone, Cognition,Bed Mobility, Transfers,Gait,Activity Tolerance Progress Towards Goals Slow Progress due to Pain,Slow Progress due to Activity Tolerance Assessment Summary Shuttle Filler continues to make slow progress with her mobility. She is MaxA for STS from chair with FWW. She requires MaxA for bed mobility. Her activity tolerance is low this afternoon. PT is recommending SNF. Goals Bed Mobility Goal Minimal Assistance Transfer Goal Minimal Assistance,Front Wheeled Walker Gait Goal Minimal Assistance,Front Wheel Walker Gait Distance 100 Other Goals improve bed mobility, transfers, ambulation using FWW 200 ft SBA Days to Meet Goals 10 Frequency of Treatment Frequency Of Treatment Twice a Day Treatment Plan Physical Therapy Treatment Plan Bed Mobility Training,Transfer Training,Gait Training, Therapeutic Exercise,Balance Retraining,Post Op Education, Discharge Planning,Hot or Cold Pack,Neuromuscular Re-ed, Coordination Retraining,Manual Therapy Precautions Anterior Hip Precautions No Hip Extension,No Hip External Rotation Weight Bearing Status Weight Bearing Status Weight Bear as Tolerated Allowed Weight Bearing Amount (enter % RLE WBAT or #) (%) Recommendations To Nursing Amount of Assist Needed 2 Person Assist Discharge Recommendations PT Discharge Recommendations SNF Rehab Transportation Needs at Discharge Wheelchair/Cabulance
--- NOTE | 2024-05-25 14:45 | DI.US.S_ITS ---
PROCEDURE: US PERIPH VENOUS LOW EXTREM RT INDICATIONS: RIGHT HIP/THIGH PAIN. RECENT SURGERY. TECHNIQUE: Real-time imaging, as well as color and pulse Doppler interrogation, were performed of the lower extremity deep veins from the inguinal ligament to the popliteal fossa, with documentation of the visualized calf veins. COMPARISON: None. FINDINGS: The common femoral, femoral, popliteal, and the visualized calf veins are normally compressible, and free of intraluminal thrombus. Color and pulse Doppler demonstrate normal phasic intraluminal flow. There is normal augmentation response to distal compression maneuver. Peroneal veins are not well seen secondary to subcutaneous edema. IMPRESSION: No findings of lower extremity deep venous thrombosis. Dictated by: Augustus Pickett M.D. on 05/25/2024 at 18:21 Approved by: Augustus Pickett M.D. on 05/25/2024 at 18:22
[2024-05-25] MEDS: TRAMADOL 50 MG TABLET 100 MG PO ×2 (16:45→20:54)
[2024-05-25 20:00] VITALS: BP 120/60; PULSE 95; RESP 17; TEMP 36.2; O2SAT 97
[2024-05-25] MEDS: LIDOCAINE 5% PATCH 1 EACH TOP (20:53)
[2024-05-26 00:29] VITALS: BP 122/70; PULSE 74; RESP 18; TEMP 37; O2SAT 96
[2024-05-26] MEDS: TRAMADOL 50 MG TABLET 100 MG PO ×3 (00:40→13:11)
[2024-05-26] MEDS: PRAMIPEXOLE 0.25 MG TABLET 0.5 MG PO (00:41)
[2024-05-26] MEDS: ACETAMINOPHEN 325 MG TABLET 650 MG PO ×3 (00:41→12:20)
[2024-05-26] MEDS: PANTOPRAZOLE DR 20 MG TABLET PO (06:18)
[2024-05-26 06:23] VITALS: BP 117/82; PULSE 81; RESP 18; TEMP 35.9; O2SAT 97
--- NOTE | 2024-05-26 06:47 | P.DS_ITS ---
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 Post-op diagnosis: same Procedure & Clinicians Procedure: Conversion of prior cannulated screw fixation of right femoral neck to cemented total hip arthroplasty through anterior approach with fixation of intraoperative femoral shaft fracture Same procedure as scheduled: Yes Surgeon: Gregg Palma Sugar Trucker: Ave Gutierrez Anesthesia Type: General and Local Operative Notes Estimated Blood Loss (mL): 500 Procedure in detail: Conversion of Prior Right Femoral Neck Fracture Fixation to Right Hybrid Direct Anterior Dual Mobility Depuy Total Hip Arthroplasty with Uncemented Acetabular Component and Cemented Femoral Component and Fixation of Intraoperative Femoral Shaft Fracture with Cerclage Cabling: Implants: * Pompey Bimentum size 51 cup? * C Stem femoral stem size 2 standard offset? * 28 mm +5 ceramic femoral head? * 51/28 dual mobility head * 3 cerclage cables Discharge Providers Provider Date of admission: 05/23/24 06:53 Discharge Date: 05/26/24 Primary care physician: Lawrence Morin MD Consults: 05/23/24 07:39 Consult to Anesthesiology Routine Comment: Consulting Provider: Anesthesiologist Reason for consultation: Regional block for post operative pain control Has provider been notified: No 05/23/24 12:10 Consult to Discharge Planning Routine Comment: Consult to Occupational Therapy Evaluate & Treat Comment: Physician Instructions: Evaluate and treat Consult to Physical Therapy Evaluate & Treat Comment: Physician Instructions: post op JOHN protocol Discharge provider: Ave Gutierrez PA-C Summary Hospital Course Discharge Diagnosis: 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 She has not been very ambulatory for several months, and due to continued need for significant assistance with transfers and ambulation, it was determined she should go to a SNF for further rehab prior to going home. She typically takes at least 45 MME of oxycodone daily as prescribed by her PCP and has done so since 2012. Due to nausea, she was converted to Tramadol, but she doesn't feel she notices much difference in terms of pain control or nausea. She received 1 unit of PRBCs on POD# 1, after which her H/H stabilized. Exam Vital Signs (past 8 hours): - 05/26/24 00:29 05/26/24 06:23 Temperature 98.6 F 96.6 F L Pulse Rate 74 81 Respiratory Rate 18 18 Blood Pressure 122/70 117/82 Pulse Oximetry 96 97 Oxygen Flow Rate 0 0 Oxygen Delivery Method Room Air Oxygen Flow Rate 0 Narrative Exam Narrative: 3/5 hip flexors, quadriceps, hamstrings; 5/5 PF, DF, EHL on right. Sensation to light touch intact throughout RLE. Calf soft and compressible. OSCAR and Aquacel dressings CDI; OSCAR functioning. 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) Hx of arthroscopy of right knee Hx of tonsillectomy History of right breast biopsy History of partial hysterectomy Hx of bilateral cataract extraction History of repair of right rotator cuff History of repair of left rotator cuff History of back surgery Social History household members: spouse and family Smoking Status: Never smoker alcohol intake: current Discharge Assessment & Plan Assessment and Plan Assessment: 1) 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 2) Will d/c w/ oxycodone for baseline pain control w/ Tramadol for breakthrough pain. 3) She takes a PPI and says she needs to receive this first thing in the morning, prior to taking any other medication or eating. 4) F/u in office in 2 weeks for wound check and reimaging. 5) ASA 81mg BID x 6 weeks for VTE prophylaxis. 6) Cefadroxil 500mg BID x 5 more days for PJI prophylaxis. Discharge Plan Discharge Plan Patient Disposition: SNF Transfer to: [facility] Discharge orders & Medications Prescriptions: New tramadol 50 mg Tablet 100 mg PO QID PRN (Reason: pain, severe) Qty: 60 0RF calcium carbonate 200 mg calcium (500 mg) Tablet,Chewable 500 mg PO PRN PRN (Reason: Dyspepsia) Qty: 60 0RF celecoxib [Celebrex] 100 mg Capsule 100 mg PO DAILY Qty: 30 0RF ondansetron 4 mg Tablet,Disintegrating 4 mg PO Q4HR PRN (Reason: Nausea) Qty: 30 0RF polyethylene glycol 3350 17 gram Powder In Packet 17 g PO DAILY PRN (Reason: Constipation) Qty: 100 0RF pantoprazole 20 mg Tablet,Delayed Release (Dr/Ec) 20 mg PO DAILY Qty: 30 0RF Rx Instructions: Give in AM at least 60 minutes prior to breakfast and other medications oxycodone 5 mg Tablet 5 mg PO Q6H PRN (Reason: pain, moderate) Qty: 60 0RF cefadroxil 500 mg capsule 500 mg PO BID Qty: 10 0RF Continued alendronate [Fosamax] 70 mg Tablet 70 mg PO WEEKLY acetaminophen 500 mg Tablet 500 mg PO QID PRN (Reason: Pain (Scale Score 1-3)) naloxone [Narcan] 4 mg/actuation spray,non-aerosol 4 mg intranasal Q3M PRN (Reason: opioid overdose) Qty: 2 0RF Rx Instructions: spray 1 dose into ONE nostril; alternate nostrils w each dose until help arrives pramipexole 0.5 mg Tablet 0.5 mg PO BID PRN (Reason: RLS) gabapentin 300 mg Capsule 300 mg PO QID cyclobenzaprine 10 mg tablet 10 mg PO TID PRN (Reason: muscle spasm) Qty: 30 0RF aspirin 81 mg tablet,delayed release (DR/EC) 81 mg PO BID Qty: 42 0RF baclofen 5 mg tablet 5 mg PO .tid prn Qty: 20 0RF Discontinued oxycodone-acetaminophen 7.5-325 mg tablet 1 tab PO Q6H PRN (Reason: Pain, Moderate) Follow up/Referrals: Lawrence Morin MD [Primary Care Provider] - Gregg Palma MD [Physician] - 2 Weeks (F/u w/ NAOMY or Dr Palma in 2 weeks for wound check and xrays.) Diet/Activity/Treatments Diet: Diet as Tolerated Activity: Weightbearing as tolerated to right leg. Walker at all times. Cold/Heat Therapy: Ice to hip as needed for pain. Skin/Wound/Dressing Care Report to your healthcare provider any signs of infection, such as:: chills, fever, night sweats, unusual drainage and unusual redness Dressing: May shower. Leave dressings in place until follow up in office. In 5-7 days, batteries will , at which point you can cut off the battery pack and dispose of it, but leave the dressings on. No bathing or otherwise soaking incisions. Call the office if the dressings become saturated inside. [facility] Reason for rehabilitation: Post-operative therapy Rehab type: Physical therapy and Occupational therapy Visit Report/Discharge Packet Instructions: DI for Hip Replacement, DI for Prescription Opioid Use Stand Alone Forms: Patient Portal/API, Surgery Discharge Discharge Data Primary Care Provider: Lawrence Morin Quality VTE Deep Vein Thrombosis/Pulmonary Embolism Present on Admission: No
[2024-05-26 08:00] VITALS: BP 121/68; PULSE 87; RESP 16; TEMP 36.3; O2SAT 97
--- NOTE | 2024-05-26 08:43 | CM.DPC ---
DCP Continued: Reviewed EMR and team rounds for pt?s medical status. Per CM team, pt has been accepted at [facility] for SNF Rehab and will be transferring on 05/26. DCP coordinated with Admissions at [facility], signed med list and signed prescriptions to be sent to Admissions staff. Transport provided by [facility], pending. DCP notified pt RN. Pending transport time before confirming with DOG HAIR CLIPPER and pt/family. Plan: Pt to discharge to [facility] for SNF Rehab via their whelechair transport. CM Team will continue to follow for coordination of discharge plans. MARTA Wade
[2024-05-26] MEDS: BACLOFEN 10 MG TABLET 5 MG PO ×2 (09:15→13:11)
[2024-05-26] MEDS: CALCIUM CARBONATE 500 MG TAB PO ×2 (09:15→12:20)
[2024-05-26] MEDS: GABAPENTIN 300 MG CAPSULE PO ×2 (09:15→12:20)
[2024-05-26] MEDS: polyethylene glycoL 3350 17 GM POWD.PACK PO (09:15)
[2024-05-26] MEDS: ASPIRIN EC 81 MG TABLET PO (09:15)
[2024-05-26] MEDS: cephALEXin 250 MG CAPSULE 500 MG PO (09:15)
[2024-05-26] MEDS: CELECOXIB 100 MG CAPSULE PO (09:15)
[2024-05-26] MEDS: DOCUSATE 100 MG CAPSULE PO (09:16)
--- NOTE | 2024-05-26 09:31 | PT.IPTN ---
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) Fracture of unspecified part of neck of right femur, subsequent encounter for closed fracture with nonunion (05/23/24) Unspecified fracture of right femur, subsequent encounter for closed fracture with nonunion (05/23/24) Presence of unspecified artificial hip joint (05/23/24) Surgery Performed Operation Date: 05/23/24 08:30 Actual Procedures p Total Hip Arthroplasty/Anterior Approach(Right) - Gregg Palma MD Physical Therapy Treatment Note M2 PT-IP Current Condition Start: 05/23/24 15:59 Freq: NEEDED Status: Active Protocol: Document 05/23/24 14:31 AB (Rec: 05/23/24 16:22 AB [id number]) Physical Therapy Current Condition Current Condition Evaluation Date 05/23/24 Treatment Diagnosis S/p R JOHN anterior; difficulty in walking Onset Date 05/23/24 M3 PT-IP Subjective Start: 05/23/24 15:59 Freq: NEEDED Status: Active Protocol: Document 05/26/24 09:57 TS (Rec: 05/26/24 10:09 TS [id number]) Subjective Physical Therapy Visit Type Type Treatment Note Visit Start Time 09:31 Visit Stop Time 09:54 Number of SET PAINTER Visits 3 Physical Therapy Visit Comments Patient Comments Pt found resting in bed, she is agreeable to PT. Therapy Pain Assessment Pain When Pain Assessed At Rest Pain Present Pain Present Pain Reported M4 PT-IP Mobility and Gait Start: 05/23/24 15:59 Freq: NEEDED Status: Active Protocol: Document 05/26/24 09:57 TS (Rec: 05/26/24 10:09 TS [id number]) PT-Bed Mobility Assessment Supine to Sit Supine to Sit Maximum Assistance,1 Person Assistance Scooting Scooting to Edge of Bed Minimal Assistance PT-Transfer Assessment Sit to and From Stand Sit to and from Stand Moderate Assistance,1 Person Assistance Equipment Transfer Assistive Device Gait Belt,Front Wheeled Walker Orthotic/Prosthetic Devices or Brace: No Comments Mobility Comments Pt performs quad sets, heel slides and ankle pumps prior to mobility. Supine to sit MaxA x1 for RLE assist and uprighting trunk. She scooted to EOB Loreta for RLE, requires cues for handrail assist. STS with FWW ModA, pt has a slight posterior lean. She ambulated in the room ~20' with a antalgic step to gait and use of FWW. Pt is left in chair, all needs met. Gait Assessment Gait Gait Assistance Required: Minimum Assistance,1 Person Assist Distance (Feet) 20 Able to Maintain Weight Bearing Status No During Gait Assistive Devices Assistive Device Gait Belt,Front Wheeled Walker Orthotic/Prosthetic Devices or Brace: No Gait Deviations General Gait Pattern Antalgic,Decreased Stride Length,Decreased Feet Clearance,Step-to Gait Factors Limiting Gait Function Factors Limiting Gait Function Decreased Activity Tolerance, Decreased Sensation,Decreased Strength,Pain,Poor Balance, Poor Safety Awareness PT-Balance Assessment Sitting Balance and Reactions Static Sitting Balance Ability Good Dynamic Sitting Balance Ability Fair Standing Balance and Reactions Static Standing Balance Ability Fair Dynamic Standing Balance Ability Fair Device Used FWW M5 PT-IP Objective Assessments Start: 05/23/24 15:59 Freq: NEEDED Status: Active Protocol: Document 05/23/24 14:31 AB (Rec: 05/23/24 16:22 AB [id number]) Orientation Orientation/Cognition Level of Alertness Confusional State Orientation Name Language Function Ability Hard of Hearing Safety Awareness Decreased Safety Awareness Memory Description Short Term Impaired,Emergency Dispatcher Impaired Gross Range of Motion Lower Extremity ROM Impairments pain limiting movement with increase guarding Strength Lower Extremity Strength Assessment Right Impaired Hip 2+/5 Knee 3-/5 Coordination Assessment Gross Coordination Gross Coordination WNL Sensation Assessment Sensation Gross Sensation WNL Muscle Tone Muscle Tone WNL Yes M6 PT-IP Treatment Start: 05/23/24 15:59 Freq: NEEDED Status: Active Protocol: Document 05/26/24 09:57 TS (Rec: 05/26/24 10:09 [id number]) Physical Therapy Treatment Education Education Provided Precautions,Weight Bearing Status,Post-Op Packet,Safety M7 PT-IP Assessment and Plan Start: 05/23/24 15:59 Freq: NEEDED Status: Active Protocol: Document 05/26/24 09:57 TS (Rec: 05/26/24 10:09 TS [id number]) PT Summary Assessment and Plan Potential Rehabilitation Potential Fair Summary Impairments Pain,ROM,Strength,Balance, Coordination,Sensation,Tone, Cognition,Bed Mobility, Transfers,Gait,Activity Tolerance Progress Towards Goals Slow Progress due to Pain,Slow Progress due to Activity Tolerance Assessment Summary Bottler Helper continues to require MaxA for bed mobility and ModA for STS. She continues to ambulate short distances in the room. She continues to have high pain and poor activity tolerance. PT is recommending SNF. Goals Bed Mobility Goal Minimal Assistance Transfer Goal Minimal Assistance,Front Wheeled Walker Gait Goal Minimal Assistance,Front Wheel Walker Gait Distance 100 Other Goals improve bed mobility, transfers, ambulation using FWW 200 ft SBA Days to Meet Goals 10 Frequency of Treatment Frequency Of Treatment Twice a Day Treatment Plan Physical Therapy Treatment Plan Bed Mobility Training,Transfer Training,Gait Training, Therapeutic Exercise,Balance Retraining,Post Op Education, Discharge Planning,Hot or Cold Pack,Neuromuscular Re-ed, Coordination Retraining,Manual Therapy Precautions Anterior Hip Precautions No Hip Extension,No Hip External Rotation Weight Bearing Status Weight Bearing Status Weight Bear as Tolerated Allowed Weight Bearing Amount (enter % RLE WBAT or #) (%) Recommendations To Nursing Amount of Assist Needed 1 Person Assist Discharge Recommendations PT Discharge Recommendations SNF Rehab Transportation Needs at Discharge Wheelchair/Cabulance
== END 2024-05-26 14:31 | DRG 467 ==
PROVIDERS: Physician Assistant; Admitting Provider Orthopaedic Surgery Adult Reconstructive Orthopaedic Surgery; Family Provider Family Medicine; PCP Family Medicine; Referring Provider Orthopaedic Surgery Adult Reconstructive Orthopaedic Surgery; Visit Provider Orthopaedic Surgery Adult Reconstructive Orthopaedic Surgery
PROC: 0SR9039 Replacement of Right Hip Joint with Ceramic Synthetic Substitute, Cemented, Open Approach (ICD-10-PCS; CPT 27130; principal; 2024-05-23 08:30)
DX: M80.051K Age-related osteoporosis with current pathological fracture, right femur, subsequent encounter for fracture with nonunion (principal); D62 Acute posthemorrhagic anemia; M96.661 Fracture of femur following insertion of orthopedic implant, joint prosthesis, or bone plate, right leg; M96.89 Other intraoperative and postprocedural complications and disorders of the musculoskeletal system; M87.351 Other secondary osteonecrosis, right femur; I95.9 Hypotension, unspecified; G25.81 Restless legs syndrome
CPT/HCPCS: 36415; 36430; 73502; 73503; 76000; 85014; 85018; 85027; 86850; 86900; 86901; 93971; 97116; 97162; 97166; 97530; C1776; P9016; J0136; J0690; J1100; J1170; J2405; J2704; J3010

== ENCOUNTER 2024-05-28 04:33 | Emergency (ER) | payer MEDICARE, OTHER, SELFPAY ==
[2024-05-23 15:35] VITALS: BMI 24.3
--- NOTE | 2024-05-28 04:38 | ED_ITS ---
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 She was hospitalized a couple of times May 19 through the , then again May 24. She was discharged to [facility] rehab facility. She reports she is having on going pain. She is still in her hospital gown from discharge. She does have significant swelling of the left leg but not having any fever. She is chronic opiate dependence for severe scoliosis. She reports that she is constipation for 1 week but no significant pain nausea or vomiting Related Data Home Medications Medication Instructions Recorded Confirmed alendronate 70 mg tablet (Fosamax) 70 mg PO WEEKLY 03/28/18 05/24/24 acetaminophen 500 mg tablet 500 mg PO QID PRN Pain (Scale 07/01/23 05/23/24 Score 1-3) pramipexole 0.5 mg tablet 0.5 mg PO BID PRN RLS 11/25/23 05/23/24 Previous Rx's Medication Instructions Recorded naloxone 4 mg/actuation nasal 4 mg intranasal Q3M PRN opioid 07/09/23 spray (Narcan) overdose #2 ea aspirin 81 mg tablet,delayed 81 mg PO BID #42 tabs 12/02/23 release baclofen 5 mg tablet 5 mg PO TID PRN muscle spasm #20 05/26/24 tabs baclofen 5 mg tablet 5 mg PO TID PRN muscle spasm #30 05/26/24 tabs calcium carbonate 500 mg (2.5 x 200 mg calcium (500 05/26/24 mg)) PO PRN PRN Dyspepsia #60 tabs cefadroxil 500 mg capsule 500 mg PO BID #10 caps 05/26/24 celecoxib 100 mg capsule (Celebrex) 100 mg PO DAILY #30 caps 05/26/24 cyclobenzaprine 10 mg tablet 10 mg PO TID PRN muscle spasm #30 05/26/24 tabs cyclobenzaprine 10 mg tablet 10 mg PO TID PRN muscle spasm #30 05/26/24 tabs gabapentin 300 mg capsule 300 mg PO QID #30 caps 09/06/24 gabapentin 300 mg capsule 300 mg PO QID #30 caps 05/26/24 ondansetron 4 mg disintegrating 4 mg PO Q4HR PRN Nausea #30 tabs 05/26/24 tablet oxycodone 5 mg tablet 5 mg PO Q6H PRN pain, moderate #60 05/26/24 tabs pantoprazole 20 mg tablet,delayed 20 mg PO DAILY #30 tabs 05/26/24 release polyethylene glycol 3350 17 gram 17 g PO DAILY PRN Constipation 05/26/24 oral powder packet #100 ea tramadol 50 mg tablet 100 mg (2 x 50 mg) PO QID PRN 05/26/24 pain, severe #60 tabs Allergies Allergy/AdvReac Type Severity Reaction Status Date / Time Penicillins Allergy Severe Rash Verified 05/23/24 07:44 monosodium glutamate AdvReac Severe nasal Verified 05/23/24 07:44 congestion Tetracyclines AdvReac Severe dizziness, Verified 05/23/24 07:44 headache, lightheaded, I collapsed Patient History Medical History History of COVID-19 (08/2022) Rosacea Osteoporosis Arthritis Scoliosis Diverticulosis GERD (gastroesophageal reflux disease) Back pain [place] (hard of hearing) Numbness Migraines Restless leg syndrome Surgical History 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) Hx of arthroscopy of right knee Hx of tonsillectomy History of right breast biopsy History of partial hysterectomy Hx of bilateral cataract extraction History of repair of right rotator cuff History of repair of left rotator cuff History of back surgery Social History household members: spouse and family Smoking Status: Never smoker alcohol intake: current Smoking Status: Never smoker alcohol intake frequency: a few times a month Substance Use Type: does not use Exam Initial Vital Signs Initial Vital Signs: Vital Signs Pulse Rate 105 H 05/28/24 04:41 Pulse Oximetry 95 05/28/24 04:41 GENERAL: Alert well-appearing 83-year-old female HEENT: Head atraumatic,EOMI, pupils reactive, CARDIOVASCULAR: Regular rate and rhythm without murmurs, rubs or gallops. RESPIRATORY: Breath sounds equal bilaterally, no wheezes rales or rhonchi. ABDOMEN: Soft, nontender. Normoactive bowel sounds all 4 quadrants. No guarding or rebound. EXTREMITIES: Normal range of motion, no clubbing or edema. Neurovascularly intact Right lower extremity significant swelling pitting edema no erythema dressing in place without significant erythema NEUROLOGICAL: Alert and oriented x4. SKIN: Warm, dry, no laceration, no petechiae, no rashes or lesions. Right hip incision site dressing in place but no surrounding erythema dressing is non saturated Course Orders Ordered: ED Orders 05/28/24 04:48 US periph venous low extrem rt Stat CBC Auto Diff [Complete Blood Count AUTO DIFF] Stat CMP [Comprehensive Metabolic Panel] Stat Discontinued Medications Hydromorphone HCl (Hydromorphone 1 Mg Inj) 1 mg IV NOW ONE Stop: 05/28/24 04:49 Last Admin: 05/28/24 04:55 Dose: 1 mg Vital Signs Vital signs: Vital Signs - 8 hr 05/28/24 04:41 05/28/24 04:42 05/28/24 04:42 Temperature 99.2 F Pulse Rate 105 H 103 H 100 H Respiratory Rate 18 Blood Pressure 113/69 Pulse Oximetry 95 95 95 Oxygen Delivery Method Room Air 05/28/24 04:42 05/28/24 05:00 05/28/24 05:00 Temperature Pulse Rate 84 Respiratory Rate Blood Pressure 113/69 120/57 L Pulse Oximetry 91 Oxygen Delivery Method Room Air 05/28/24 05:30 05/28/24 05:30 05/28/24 06:34 Temperature 98.1 F Pulse Rate 91 H Respiratory Rate Blood Pressure 119/57 L Pulse Oximetry 89 L Oxygen Delivery Method MDM - Extremity Injury (Lower) Lab Data 05/28/24 04:48 05/28/24 04:48 Labs: Lab Results 05/28/24 Range/Units 04:48 WBC 6.7 (4.5-11.0) X10^3/uL RBC 2.63 L (4.0-5.2) X10^6/uL Hgb 8.0 L (12.0-16.0) g/dL Hct 23.2 L (36-46) % MCV 88.1 (80-100) fL MCH 30.4 (26-34) PG MCHC 34.5 (30-36) % RDW 13.8 (11.6-14.8) % Plt Count 358 (150-400) X10^3/uL Neut % (Auto) 71.3 (50-75) % Lymph % (Auto) 11.2 L (25-40) % [place] % (Auto) 11.3 (3-14) % Eos % (Auto) 5.1 H (2-4) % Baso % (Auto) 1.1 (0-2) % Neut # (Auto) 4800 (5437-2431) /uL Lymph # (Auto) 800 L (6269-3129) /uL [place] # (Auto) 800 (0-900) /uL Eos # (Auto) 300 (0-450) /uL Baso # (Auto) 100 (0-100) /uL Sodium 131 L (137-145) mmol/L Potassium 3.9 (3.4-5.1) mmol/L Chloride 99 (98-107) mmol/L Carbon Dioxide 27 (22-32) mmol/L BUN 8 (7-17) mg/dL Creatinine 0.51 L (0.52-1.04) mg/dL Estimated GFR > 60 (>60) mL/min BUN/Creatinine Ratio 15.7 (6-22) Glucose 115 H (80-110) mg/dL Calcium 8.7 (8.4-10.2) mg/dL Total Bilirubin 0.8 (0.2-1.3) mg/dL AST 70 H (14-36) IU/L ALT 39 H (<35) IU/L Alkaline Phosphatase 81 (38-126) U/L Total Protein 5.6 L (6.3-8.2) g/dL Albumin 3.2 L (3.5-5.0) g/dL Globulin 2.4 (1.7-4.1) g/dL Albumin/Globulin Ratio 1.3 (1.0-2.8) Imaging Data US - DVT: Radiologist's Impression: Preliminary report negative for DVT no Delgado cyst MDM Narrative Medical decision making narrative: Patient 83-year-old female save pain. She recently had surgery. She has been hospitalized twice looks like 4. Quite swollen but does not appear infected. She has no surrounding erythema. Blood work has been reviewed overall stable anemia in DVT study negative WBC 6.7 hemoglobin 8.0/20.2 previously 8.3/24, platelets 358, sodium 131 potassium 3.9 chloride 99 [place] BUN 8 creatinine 0.5 She 70 ALT 30 minutes bili 0.8 albumin 3.2 Patient's pain is significantly better Dilaudid she has oxycodone and lots of other medications prescribed. Discharge Plan Departure Patient Disposition: Home Clinical Impression: Post-operative pain Activity Restrictions/Additional Instructions: *You have been diagnosed with postoperative pain *What to do: Increase activity as tolerated please follow-up with ortho. *Continue to take medications as directed *Follow up with your primary care provider in 2-3 days or call [phone] Rosales *Return to ER if you should have increasing pain redness swelling or any new, worsening or concerning symptoms Prescriptions: No Action alendronate [Fosamax] 70 mg Tablet 70 mg PO WEEKLY acetaminophen 500 mg Tablet 500 mg PO QID PRN (Reason: Pain (Scale Score 1-3)) naloxone [Narcan] 4 mg/actuation spray,non-aerosol 4 mg intranasal Q3M PRN (Reason: opioid overdose) Qty: 2 0RF Rx Instructions: spray 1 dose into ONE nostril; alternate nostrils w each dose until help arrives pramipexole 0.5 mg Tablet 0.5 mg PO BID PRN (Reason: RLS) aspirin 81 mg tablet,delayed release (DR/EC) 81 mg PO BID Qty: 42 0RF tramadol 50 mg Tablet 100 mg PO QID PRN (Reason: pain, severe) Qty: 60 0RF calcium carbonate 200 mg calcium (500 mg) Tablet,Chewable 500 mg PO PRN PRN (Reason: Dyspepsia) Qty: 60 0RF celecoxib [Celebrex] 100 mg Capsule 100 mg PO DAILY Qty: 30 0RF ondansetron 4 mg Tablet,Disintegrating 4 mg PO Q4HR PRN (Reason: Nausea) Qty: 30 0RF polyethylene glycol 3350 17 gram Powder In Packet 17 g PO DAILY PRN (Reason: Constipation) Qty: 100 0RF pantoprazole 20 mg Tablet,Delayed Release (Dr/Ec) 20 mg PO DAILY Qty: 30 0RF Rx Instructions: Give in AM at least 60 minutes prior to breakfast and other medications oxycodone 5 mg Tablet 5 mg PO Q6H PRN (Reason: pain, moderate) Qty: 60 0RF cefadroxil 500 mg capsule 500 mg PO BID Qty: 10 0RF cyclobenzaprine 10 mg tablet 10 mg PO TID PRN (Reason: muscle spasm) Qty: 30 0RF gabapentin 300 mg Capsule 300 mg PO QID Qty: 30 0RF baclofen 5 mg tablet 5 mg PO TID PRN (Reason: muscle spasm) Qty: 20 0RF baclofen 5 mg tablet 5 mg PO TID PRN (Reason: muscle spasm) Qty: 30 0RF cyclobenzaprine 10 mg tablet 10 mg PO TID PRN (Reason: muscle spasm) Qty: 30 0RF gabapentin 300 mg capsule 300 mg PO QID Qty: 30 0RF Referrals: Lawrence Morin MD [Primary Care Provider] - Stand Alone Forms: Patient Portal/API
[2024-05-28 04:41] VITALS: PULSE 105; O2SAT 95
[2024-05-28 04:42] VITALS: BP 113/69; PULSE 100; PULSE 103; RESP 18; TEMP 37.3; O2SAT 95
--- NOTE | 2024-05-28 04:48 | DI.US.S_ITS ---
PROCEDURE: US PERIP VENOUS LOW EXTREM RT INDICATIONS: swelling post surgery TECHNIQUE: Real-time imaging, as well as color and pulse Doppler interrogation, were performed of the lower extremity deep veins from the inguinal ligament to the popliteal fossa, with documentation of the visualized calf veins. COMPARISON: [facility], , [facility] VENOUS LOW EXTREM RT, 05/25/2024, 16:23. FINDINGS: The common femoral, femoral, popliteal, and the visualized calf veins are normally compressible, and free of intraluminal thrombus. Color and pulse Doppler demonstrate normal phasic intraluminal flow. There is normal augmentation response to distal compression maneuver. Soft tissue edema is seen within the calf. IMPRESSION: Soft tissue edema in the lower leg without lower extremity deep venous thrombosis. Dictated by: Anne Abarca M.D. on 05/28/2024 at 8:12 Approved by: Anne Abarca M.D. on 05/28/2024 at 8:14
[2024-05-28] MEDS: HYDROMORPHONE 1 MG INJ IV (04:55)
[2024-05-28 05:00] VITALS: BP 120/57; PULSE 84; O2SAT 91
[2024-05-28 05:00] LABS: Add Manual Diff / Slide Review NO; Basophils Absolute Auto 100 /uL (0-100); Basophils Percent Auto 1.1 % (0-2); Eosinophils Absolute Auto 300 /uL (0-450); Eosinophils Percent Auto 5.1 % (2-4); Hematocrit 23.2 % (36-46); Lymphocytes Absolute Auto 800 /uL (1100-4500); Lymphocytes Percent Auto 11.2 % (25-40); Mean Corpuscular HGB Conc 34.5 % (30-36); Mean Corpuscular Hemoglobin 30.4 PG (26-34); Mean Corpuscular Volume 88.1 fL (80-100); Monocytes Absolute Auto 800 /uL (0-900); Monocytes Percent Auto 11.3 % (3-14); Neutrophils Absolute Auto 4800 /uL (1500-7000); Neutrophils Percent Auto 71.3 % (50-75); Platelet Count 358 X10^3/uL (150-400); Red Blood Cell Count 2.63 X10^6/uL (4.0-5.2); Red Cell Distribution Width 13.8 % (11.6-14.8); White Blood Cell Count 6.7 X10^3/uL (4.5-11.0)
[2024-05-28 05:13] LABS: Alanine Aminotransferase 39 IU/L (<35); Albumin 3.2 g/dL (3.5-5.0); Albumin Globulin Ratio 1.3 (1.0-2.8); Alkaline Phosphatase 81 U/L (38-126); Aspartate Aminotransferase 70 IU/L (14-36); BUN Creatinine Ratio 15.7 (6-22); Bilirubin Total 0.8 mg/dL (0.2-1.3); Blood Urea Nitrogen 8 mg/dL (7-17); Calcium 8.7 mg/dL (8.4-10.2); Carbon Dioxide 27 mmol/L (22-32); Chloride 99 mmol/L (98-107); Estimated Glomerular Filt Rate > 60 mL/min (>60); Globulin 2.4 g/dL (1.7-4.1); Glucose 115 mg/dL (80-110); HEMOLYSIS < 15 (0-50); Potassium 3.9 mmol/L (3.4-5.1); Sodium 131 mmol/L (137-145); Total Protein 5.6 g/dL (6.3-8.2)
[2024-05-28 05:30] VITALS: BP 119/57; PULSE 91; O2SAT 89
[2024-05-28 06:34] VITALS: TEMP 36.7
== END 2024-05-28 07:00 | disposition home or self-care (01) ==
PROVIDERS: Emergency Provider Emergency Medicine; Family Provider Family Medicine; PCP Family Medicine
DX: G89.18 Other acute postprocedural pain (principal); M41.9 Scoliosis, unspecified
CPT/HCPCS: 80053; 85025; 93971; 96374; 99283; 99284; J1170

== ENCOUNTER → 2024-08-03 17:12 | Outpatient (ROUT) | payer MEDICARE, OTHER, SELFPAY ==
[2024-05-23 15:35] VITALS: BMI 24.3
[2024-08-03 17:23] LABS: Appearance Urine UA CLOUDY; Bilirubin Urine UA NEGATIVE (NEGATIVE); Color Urine UA YELLOW; Glucose Urine UA NEGATIVE (Negative); Ketones Urine UA NEGATIVE (NEGATIVE); Leukocyte Esterase Urine UA 3+ (NEGATIVE); Nitrite Urine UA NEGATIVE (Negative); Occult Blood Urine UA TRACE-INTACT (Negative); Protein Urine UA NEGATIVE (Negative); Specific Gravity Urine UA <=1.005 (1.000-1.035)
[2024-08-03 17:39] LABS: Bacteria Urine Many (>30); RBC Urine 0-1/HPF (0-5/HPF); Squamous Epithelial Cell Urine 0-1 /HPF (0-5/HPF); Urine Volume 10mL (spun); WBC Urine 30-100/HPF (0-5/HPF)
[2024-08-03 17:40] LABS: Culture Indicated Urine Specimen Cultured
== END ==
PROVIDERS: Family Provider Family Medicine; PCP Family Medicine; Visit Provider Registered Nurse
DX: N39.0 Urinary tract infection, site not specified (principal)
CPT/HCPCS: 81001; 87077; 87086; 87186

== ENCOUNTER 2025-04-06 17:20 | Emergency (ER) | payer MEDICARE, OTHER, SELFPAY ==
[2024-05-23 15:35] VITALS: BMI 24.3
[2025-04-06] VITALS (12 sets, daily range): BP systolic 124–167; BP diastolic 60–98; PULSE 80–124; RESP 13–22; TEMP 36.4; O2SAT 88–100; BMI 23.0
[2025-04-06 17:58] LABS: Add Manual Diff / Slide Review NO; Hematocrit 34.6 % (36-46); Hemoglobin 11.5 g/dL (12.0-16.0); Lymphocytes Absolute Auto 1200 /uL (1100-4500); Mean Corpuscular HGB Conc 33.2 % (30-36); Mean Corpuscular Hemoglobin 28.0 PG (26-34); Mean Corpuscular Volume 84.4 fL (80-100); Platelet Count 302 X10^3/uL (150-400)
[2025-04-06 18:06] LABS: Alanine Aminotransferase 13 IU/L (<35); Albumin 4.4 g/dL (3.5-5.0); Albumin Globulin Ratio 1.5 (1.0-2.8); Alkaline Phosphatase 89 U/L (38-126); Blood Urea Nitrogen 17 mg/dL (7-17); Calcium 9.4 mg/dL (8.4-10.2); Carbon Dioxide 26 mmol/L (22-32); Chloride 103 mmol/L (98-107); Estimated Glomerular Filt Rate > 60 mL/min (>60); Globulin 2.9 g/dL (1.7-4.1); Glucose 108 mg/dL (70-99); HEMOLYSIS < 15 (0-50); Lipase 27 U/L (23-300); Potassium 4.3 mmol/L (3.4-5.1); Sodium 137 mmol/L (137-145); Total Protein 7.3 g/dL (6.3-8.2)
--- NOTE | 2025-04-06 19:34 | PC.NURSE ---
Patient calls. Asking if there is anything that can be given for her LEFT leg spasms. Provider Freedom made aware and states he will go assess patient soon.
--- NOTE | 2025-04-06 19:43 | ED.ABDPAIN ---
HPI - Abdominal Pain General Chief Complaint: Abdominal Pain Stated Complaint: hernia pain Time Seen by Provider: 04/06/25 18:01 History of Present Illness HPI narrative: 84-year-old female history of atrial fibrillation on anticoagulation, chronic opioid dependence, with known left inguinal hernia presents with hernia pain radiating down the left leg today having spasms at this time. Patient denies active chest pain, shortness of breath, dyspnea on exertion, trauma to the area, or recent heavy lifting. Other than what is stated 14 point review of system is negative Related Data Home Medications ?Medication ?Instructions ?Recorded ?Confirmed alendronate 70 mg tablet (Fosamax) 70 mg PO WEEKLY 03/28/18 05/24/24 acetaminophen 500 mg tablet 500 mg PO QID PRN Pain (Scale 07/01/23 05/23/24 Score 1-3) pramipexole 0.5 mg tablet 0.5 mg PO BID PRN RLS 11/25/23 05/23/24 Previous Rx's ?Medication ?Instructions ?Recorded naloxone 4 mg/actuation nasal 4 mg intranasal Q3M PRN opioid 07/09/23 spray (Narcan) overdose #2 ea aspirin 81 mg tablet,delayed 81 mg PO BID #42 tabs 12/02/23 release baclofen 5 mg tablet 5 mg PO TID PRN muscle spasm #20 05/26/24 tabs baclofen 5 mg tablet 5 mg PO TID PRN muscle spasm #30 05/26/24 tabs calcium carbonate 500 mg (2.5 x 200 mg calcium (500 05/26/24 mg)) PO PRN PRN Dyspepsia #60 tabs cefadroxil 500 mg capsule 500 mg PO BID #10 caps 05/26/24 celecoxib 100 mg capsule (Celebrex) 100 mg PO DAILY #30 caps 05/26/24 cyclobenzaprine 10 mg tablet 10 mg PO TID PRN muscle spasm #30 05/26/24 tabs cyclobenzaprine 10 mg tablet 10 mg PO TID PRN muscle spasm #30 05/26/24 tabs gabapentin 300 mg capsule 300 mg PO QID #30 caps 05/26/24 gabapentin 300 mg capsule 300 mg PO QID #30 caps 05/26/24 ondansetron 4 mg disintegrating 4 mg PO Q4HR PRN Nausea #30 tabs 05/26/24 tablet oxycodone 5 mg tablet 5 mg PO Q6H PRN pain, moderate #60 05/26/24 tabs pantoprazole 20 mg tablet,delayed 20 mg PO DAILY #30 tabs 05/26/24 release polyethylene glycol 3350 17 gram 17 g PO DAILY PRN Constipation 05/26/24 oral powder packet #100 ea tramadol 50 mg tablet 100 mg (2 x 50 mg) PO QID PRN 05/26/24 pain, severe #60 tabs lactulose 10 gram/15 mL oral 10 g (15 mL) PO BEDTIME PRN 04/06/25 solution constipation #473 mL lactulose 20 gram oral packet 20 g PO BID #30 ea 04/06/25 Allergies Allergy/AdvReac Type Severity Reaction Status Date / Time Penicillins Allergy Severe Rash Verified 05/23/24 07:44 monosodium glutamate AdvReac Severe nasal Verified 05/23/24 07:44 congestion Tetracyclines AdvReac Severe dizziness, Verified 05/23/24 07:44 headache, lightheaded, I collapsed Review of Systems Review of Systems ROS Unobtainable: All systems reviewed & are unremarkable except as noted in HPI and below Patient History Medical History History of COVID-19 (08/2022) Rosacea Osteoporosis Arthritis Scoliosis Diverticulosis GERD (gastroesophageal reflux disease) Back pain [place] (hard of hearing) Numbness Migraines Restless leg syndrome Surgical History 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 Well-developed patient, in mild distress. HEAD: Atraumatic. Normocephalic. EYES: Pupils equal round and reactive. Extraocular motions intact. No scleral icterus. No injection or drainage. NECK: Trachea midline. Non tender CARDIOVASCULAR: Regular rate and rhythm without murmurs, gallops, or rubs. RESPIRATORY: Clear to auscultation. Breath sounds equal bilaterally. No wheezes, rales, or rhonchi. GASTROINTESTINAL: Abdomen soft, non-tender, nondistended. L inguinal hernia TTP soft reducible EXTREMITIES: No edema or joint tenderness. BACK: Nontender without deformity or crepitance. No flank tenderness. NEURO: AOx3. SKIN: No rash or erythema of visible areas Initial Vital Signs Initial Vital Signs: Vital Signs Temperature 97.5 F L 04/06/25 17:33 Pulse Rate 86 04/06/25 17:33 Respiratory Rate 16 04/06/25 17:33 Blood Pressure 158/75 H 04/06/25 17:33 Pulse Oximetry 96 04/06/25 17:33 Oxygen Delivery Method Room Air 04/06/25 17:33 Course Orders Ordered: ED Orders 04/06/25 17:47 Complete Blood Count AUTO DIFF Stat Comprehensive Metabolic Panel Stat Lipase Stat 04/06/25 19:44 CT abdomen pelvis w con Stat 04/06/25 19:48 US periph venous low extrem lt Stat Ondansetron HCl (Ondansetron 4 Mg/2 Ml Inj) 4 mg IV NOW PRN PRN Reason: Nausea And Vomiting Ondansetron HCl (Ondansetron 4 Mg Odt) 4 mg PO NOW PRN PRN Reason: Nausea And Vomiting Discontinued Medications Hydromorphone HCl (Hydromorphone 1 Mg Inj) 1 mg IV NOW ONE Stop: 04/06/25 19:50 Last Admin: 04/06/25 19:56 Dose: 1 mg Documented By: LESA Lactated Ringer's (Lactated Ringers) 1,000 mls @ 1,000 mls/hr IV BOLUS ONE Stop: 04/06/25 20:48 Last Infusion: 04/06/25 22:01 Dose: Infused Documented By: Admin: 04/06/25 20:30 Dose: 1,000 mls/hr Documented By: BETSY Lactulose (Lactulose 20 Gm/30 Ml Solution) 20 gm PO NOW ONE Stop: 04/06/25 21:25 Last Admin: 04/06/25 21:35 Dose: 20 gm Documented By: AM Vital Signs Vital signs: Vital Signs - 8 hr 04/06/25 17:33 04/06/25 18:43 04/06/25 18:43 Temperature 97.5 F L Pulse Rate 86 80 Respiratory Rate 16 14 Blood Pressure 158/75 H 139/86 Pulse Oximetry 96 88 L Oxygen Delivery Method Room Air Oxygen Flow Rate 04/06/25 18:57 04/06/25 18:57 04/06/25 19:00 Temperature Pulse Rate 89 Respiratory Rate Blood Pressure 124/73 147/70 H Pulse Oximetry 98 Oxygen Delivery Method Oxygen Flow Rate 04/06/25 19:00 04/06/25 19:30 04/06/25 19:30 Temperature Pulse Rate 96 H 124 H Respiratory Rate 18 Blood Pressure 159/98 H Pulse Oximetry 99 97 Oxygen Delivery Method Oxygen Flow Rate 04/06/25 20:30 04/06/25 20:31 04/06/25 20:31 Temperature Pulse Rate 92 H 82 Respiratory Rate Blood Pressure 137/60 Pulse Oximetry 96 97 Oxygen Delivery Method Nasal Cannula Oxygen Flow Rate 2 04/06/25 21:00 04/06/25 21:30 04/06/25 21:30 Temperature Pulse Rate 80 88 Respiratory Rate 13 21 Blood Pressure 145/77 H Pulse Oximetry 100 100 Oxygen Delivery Method Oxygen Flow Rate 04/06/25 22:00 04/06/25 22:00 Temperature Pulse Rate 84 Respiratory Rate Blood Pressure 136/80 Pulse Oximetry 100 Oxygen Delivery Method Room Air Oxygen Flow Rate MDM - Abdominal Pain Lab Data 04/06/25 17:47 04/06/25 17:47 Labs: Lab Results 04/06/25 Range/Units 17:47 WBC 6.9 (4.5-11.0) X10^3/uL RBC 4.10 (4.0-5.2) X10^6/uL Hgb 11.5 L (12.0-16.0) g/dL Hct 34.6 L (36-46) % MCV 84.4 (80-100) fL MCH 28.0 (26-34) PG MCHC 33.2 (30-36) % RDW 16.4 H (11.6-14.8) % Plt Count 302 (150-400) X10^3/uL Neut % (Auto) 73.5 (50-75) % Lymph % (Auto) 16.6 L (25-40) % Trinity % (Auto) 8.3 (3-14) % Eos % (Auto) 0.9 L (2-4) % Baso % (Auto) 0.7 (0-2) % Neut # (Auto) 5100 (2977-6788) /uL Lymph # (Auto) 1200 (6348-7891) /uL Trinity # (Auto) 600 (0-900) /uL Eos # (Auto) 100 (0-450) /uL Baso # (Auto) 100 (0-100) /uL Sodium 137 (137-145) mmol/L Potassium 4.3 (3.4-5.1) mmol/L Chloride 103 (98-107) mmol/L Carbon Dioxide 26 (22-32) mmol/L BUN 17 (7-17) mg/dL Creatinine 0.74 (0.52-1.04) mg/dL Estimated GFR > 60 (>60) mL/min BUN/Creatinine Ratio 23.0 H (6-22) Glucose 108 H (70-99) mg/dL Calcium 9.4 (8.4-10.2) mg/dL Total Bilirubin 0.5 (0.2-1.3) mg/dL AST 26 (14-36) IU/L ALT 13 (<35) IU/L Alkaline Phosphatase 89 (38-126) U/L Total Protein 7.3 (6.3-8.2) g/dL Albumin 4.4 (3.5-5.0) g/dL Globulin 2.9 (1.7-4.1) g/dL Albumin/Globulin Ratio 1.5 (1.0-2.8) Lipase 27 (23-300) U/L Imaging Data US - abdomen: Radiologist's Impression: [address] [address] Ultrasound Report Signed Patient: Job Farr MR#: [id number] : 1940 Acct:[id number] Age/Sex: 84 / F Date of Service: 04/06/25 Loc: ED Accession Number: [id number] Procedure: US periph venous low extrem lt Ordering Provider: Des Loja D.O. PROCEDURE: US PERIPH VENOUS LOW EXTREM LT INDICATIONS: Left leg pain TECHNIQUE: Real-time imaging, as well as color and pulse Doppler interrogation, were performed of the lower extremity deep veins from the inguinal ligament to the popliteal fossa, with documentation of the visualized calf veins. COMPARISON: None. FINDINGS: The common femoral, femoral, popliteal, and the visualized calf veins are normally compressible, and free of intraluminal thrombus. Color and pulse Doppler demonstrate normal phasic intraluminal flow. There is normal augmentation response to distal compression maneuver. IMPRESSION: No findings of lower extremity deep venous thrombosis. ECG Data Interpretation: [address] [address] [address] Scan Report Signed Patient: Job Farr MR#: [id number] : 1940 Acct:[id number] Age/Sex: 84 / F Date of Service: 04/06/25 Loc: ED Accession Number: [id number] Procedure: CT abdomen pelvis w con Ordering Provider: Des Loja D.O. PROCEDURE: CT ABDOMEN PELVIS W CON INDICATIONS: L inguinal hernia TECHNIQUE: After the administration of intravenous contrast, axial sections acquired from the lung bases to the pubic symphysis. Coronal and sagittal reformats were performed. For radiation dose reduction, the following was used: automated exposure control, adjustment of mA and/or kV according to patient size. COMPARISON: None. FINDINGS: Image quality: Diagnostic. Lower Chest: No significant findings. ABDOMEN: Liver: No solid mass. Gallbladder: No radiopaque gallstones or wall thickening. Biliary ducts: There is mild intra hepatic biliary dilation. There is prominence of the common bile duct ranging from 7-11 mm. There is ill-defined questionable appearance of filling defect in the distal aspect of the duct. Pancreas: No ductal dilation. Spleen: Size is within normal limits. Adrenal Glands: No adrenal nodules. Kidneys and Ureters: No hydronephrosis. No solid mass. No complex renal cystic lesion which requires follow up. Stomach and Bowel: Normal colonic caliber, without significant wall thickening. Significant colonic stool dual. Scattered mildly prominent fluid-filled small bowel loops with greatest dimension measuring 2.9 cm. Peritoneum: No abnormal intraperitoneal fluid. No free air. Ventral Wall: No significant ventral hernia. Abdominal Nodes: No retroperitoneal or mesenteric adenopathy by size criteria. Vessels: Aorta and inferior vena cava are normal in size. PELVIS: Pelvic Organs: Unremarkable. Bladder: No bladder wall thickening, accounting for underdistention. Pelvic Nodes: No enlarged lymph nodes. Miscellaneous: : Containing left inguinal hernia is present. There is thickening the colon wall within the hernia as well as fluid within the hernia sac. Although there is narrowing the bowel at the hernia site, no proximal colonic obstruction. Bones: No aggressive osseous abnormality. Left hip arthroplasty thoracolumbar fixation rods. IMPRESSION: Left colon containing inguinal hernia with thickening and fluid as described above. This can represent incarceration or potentially strangulation. Recommend clinical assessment of reduce ability. No proximal obstruction. Significant colonic stool with several scattered fluid-filled small bowel loops felt to be likely secondary to ileus/partial obstruction secondary to cast a patient. Intra and extrahepatic biliary dilation as above with appearance of distal common bile duct filling defect. It is indeterminate on the basis of this exam as to etiology. Recommend correlation to laboratory values and further evaluation on a nonemergent basis to exclude mass. MDM Narrative Medical decision making narrative: Vital signs, nurse triage note, medication list, previous ER visits, and all imaging studies reviewed. Patient given [address] Rush surgeon on-call has come and evaluated the patient and reduced hernia at bedside. CT abdomen and pelvis showed left colon containing inguinal hernia with thickening and fluid as described above. No proximal obstruction. Significant colonic stool with several scattered fluid-filled small bowel loops felt to be likely secondary to ileus partial obstruction secondary to a cast. Intra and extra capillary dilatation as above with the appearance of distal common bile duct filling defect. Is indeterminate on the basis of this exam as to etiology. Normal white count CMP unremarkable including lipase LFTs and T bili and alk phos. Ultrasound showed no acute DVT. Patient given lactulose here. Differential diagnosis includes incarcerated, strangulated, hernia, diverticulitis, UTI, kidney stone, kidney infection, constipation, small-bowel obstruction. While patient follow up with surgery as outpatient regarding inguinal hernia. Discharge Plan Departure Patient Disposition: Home Clinical Impression: Inguinal hernia, Leg muscle spasm, Constipation Instructions: DI for Constipation Activity Restrictions/Additional Instructions: Return with new or worsening symptoms. Follow up with Dr. Arroyo general surgeon as outpatient regarding inguinal hernia. Call office for appointment. Take your medicines directed. Prescriptions: New lactulose 20 gram packet 20 g PO BID Qty: 30 0RF lactulose 10 gram/15 mL solution 10 g PO BEDTIME PRN (Reason: constipation) Qty: 473 0RF No Action alendronate [Fosamax] 70 mg Tablet 70 mg PO WEEKLY acetaminophen 500 mg Tablet 500 mg PO QID PRN (Reason: Pain (Scale Score 1-3)) naloxone [Narcan] 4 mg/actuation spray,non-aerosol 4 mg intranasal Q3M PRN (Reason: opioid overdose) Qty: 2 0RF Rx Instructions: spray 1 dose into ONE nostril; alternate nostrils w each dose until help arrives pramipexole 0.5 mg Tablet 0.5 mg PO BID PRN (Reason: RLS) aspirin 81 mg tablet,delayed release (DR/EC) 81 mg PO BID Qty: 42 0RF tramadol 50 mg Tablet 100 mg PO QID PRN (Reason: pain, severe) Qty: 60 0RF calcium carbonate 200 mg calcium (500 mg) Tablet,Chewable 500 mg PO PRN PRN (Reason: Dyspepsia) Qty: 60 0RF celecoxib [Celebrex] 100 mg Capsule 100 mg PO DAILY Qty: 30 0RF ondansetron 4 mg Tablet,Disintegrating 4 mg PO Q4HR PRN (Reason: Nausea) Qty: 30 0RF polyethylene glycol 3350 17 gram Powder In Packet 17 g PO DAILY PRN (Reason: Constipation) Qty: 100 0RF pantoprazole 20 mg Tablet,Delayed Release (Dr/Ec) 20 mg PO DAILY Qty: 30 0RF Rx Instructions: Give in AM at least 60 minutes prior to breakfast and other medications oxycodone 5 mg Tablet 5 mg PO Q6H PRN (Reason: pain, moderate) Qty: 60 0RF cefadroxil 500 mg capsule 500 mg PO BID Qty: 10 0RF cyclobenzaprine 10 mg tablet 10 mg PO TID PRN (Reason: muscle spasm) Qty: 30 0RF gabapentin 300 mg Capsule 300 mg PO QID Qty: 30 0RF baclofen 5 mg tablet 5 mg PO TID PRN (Reason: muscle spasm) Qty: 20 0RF baclofen 5 mg tablet 5 mg PO TID PRN (Reason: muscle spasm) Qty: 30 0RF cyclobenzaprine 10 mg tablet 10 mg PO TID PRN (Reason: muscle spasm) Qty: 30 0RF gabapentin 300 mg capsule 300 mg PO QID Qty: 30 0RF Referrals: Lawrence Morin MD [Primary Care Provider, Family Practice] Sandeep Arroyo MD [Physician, General Surgery] Referral Note: L inguinal hernia Stand Alone Forms: Patient Portal/API
--- NOTE | 2025-04-06 19:48 | DI.US.S_ITS ---
PROCEDURE: US PERIPH VENOUS LOW EXTREM LT INDICATIONS: Left leg pain TECHNIQUE: Real-time imaging, as well as color and pulse Doppler interrogation, were performed of the lower extremity deep veins from the inguinal ligament to the popliteal fossa, with documentation of the visualized calf veins. COMPARISON: None. FINDINGS: The common femoral, femoral, popliteal, and the visualized calf veins are normally compressible, and free of intraluminal thrombus. Color and pulse Doppler demonstrate normal phasic intraluminal flow. There is normal augmentation response to distal compression maneuver. IMPRESSION: No findings of lower extremity deep venous thrombosis. Dictated by: Marva Langford M.D. on 04/06/2025 at 21:52 Approved by: Marva Langford M.D. on 04/06/2025 at 21:57
[2025-04-06] MEDS: HYDROMORPHONE 1 MG INJ IV (19:56)
[2025-04-06] MEDS: LACTATED RINGERS 1,000 ML 1000 ML IV (20:30)
[2025-04-06] MEDS: LACTULOSE 20 GM/30 ML SOLUTION PO (21:35)
== END 2025-04-06 22:44 | disposition home or self-care (01) ==
PROVIDERS: Student in an Organized Health Care Education/Training Program; Emergency Provider Family Medicine; Family Provider Family Medicine; PCP Family Medicine
DX: K40.90 Unilateral inguinal hernia, without obstruction or gangrene, not specified as recurrent (principal); M62.838 Other muscle spasm; K59.00 Constipation, unspecified
CPT/HCPCS: 36415; 74177; 80053; 81003; 83690; 85025; 93971; 96361; 96374; 99284; 99285; J1171; Q9967